=== PATIENT | male | born 1945 | race Caucasian/White ===

== ENCOUNTER 2017-12-19 10:19 | Emergency (ER) | payer MEDICARE, OTHER, SELFPAY ==
[2017-12-19 10:28] VITALS: BP 147/61; PULSE 65; RESP 20; TEMP 36.3; O2SAT 100
--- NOTE | 2017-12-19 10:47 | DI.RAD.S_ITS ---
PROCEDURE: XR CHEST 1V INDICATIONS: chest pain TECHNIQUE: One view of the chest was acquired. COMPARISON: [facility], CR, XR CHEST 2VW, 12/30/2015, 7:48. FINDINGS: Surgical changes and devices: Left-sided cardiac pacer/defibrillator is seen. Lungs and pleura: The aeration of the lungs is similar to the prior exam. Interstitial prominence is present within the perihilar regions. Mediastinum: Mediastinal contours appear normal. The heart is mildly enlarged. There is aortic atherosclerosis. Bones and chest wall: No suspicious bony lesions. Overlying soft tissues appear unremarkable. IMPRESSION: 1. Mild pulmonary edema versus perihilar interstitial prominence. No convincing pneumonia. 2. Mild cardiomegaly. Dictated by: Angel Luis De La Garza M.D. on 12/19/2017 at 10:05 Approved by: Angel Luis De La Garza M.D. on 12/19/2017 at 10:06
[2017-12-19 11:00] LABS: Add Manual Diff / Slide Review NO; Basophils Percent Auto 0.7 % (0-2); Eosinophils Percent Auto 1.4 % (2-4); Hematocrit 41.8 % (41-53); Hemoglobin 14.3 g/dL (13.5-17.5); INR 2.8 (0.9-1.3); Lymphocytes Percent Auto 21.9 % (25-40); Mean Corpuscular HGB Conc 34.2 % (30-36); Mean Corpuscular Hemoglobin 31.5 PG (26-34); Mean Corpuscular Volume 92.1 fL (80-100); Monocytes Percent Auto 12.3 % (3-14); Neutrophils Absolute Auto 3700 /uL (3000-5900); Neutrophils Percent Auto 63.7 % (50-75); Platelet Count 228 X10^3/uL (150-400); Red Blood Cell Count 4.54 X10^6/uL (4.5-5.9); White Blood Cell Count 5.8 X10^3/uL (4.5-11.0)
[2017-12-19 11:02] LABS: PTT Partial Thromboplastin Tim 51 SECONDS (26.4-36.2)
[2017-12-19 11:04] LABS: Alanine Aminotransferase 51 IU/L (21-72); Albumin 4.4 g/dL (3.5-5.0); Albumin Globulin Ratio 1.3 (1.0-2.8); Alkaline Phosphatase 71 U/L (38-126); Aspartate Aminotransferase 26 IU/L (17-59); Bilirubin Total 1.2 mg/dL (0.2-1.3); Blood Urea Nitrogen 20 mg/dL (9-20); Calcium 9.6 mg/dL (8.4-10.2); Carbon Dioxide 31 mmol/L (22-32); Chloride 99 mmol/L (98-107); Creatine Kinase 64 U/L (55-170); Estimated Glomerular Filt Rate > 60.0 mL/min (>60); Globulin 3.3 g/dL (1.7-4.1); Glucose 112 mg/dL (80-110); HEMOLYSIS < 15 (0-50); Lipase 158 U/L (23-300); Potassium 4.2 mmol/L (3.4-5.1); Sodium 141 mmol/L (137-145); Total Protein 7.7 g/dL (6.3-8.2)
[2017-12-19 11:16] LABS: B Type Natriuretic Peptide 49.5 (<100); Troponin I < 0.012 ng/mL (0.01-0.034)
[2017-12-19 11:33] VITALS: BP 139/56; PULSE 52; RESP 18; O2SAT 99
--- NOTE | 2017-12-19 11:33 | ED.CHESTPAIN ---
HPI - Chest Pain General Chief Complaint: Chest Pain Stated Complaint: 'FUNNY FEELING IN CHEST' Time Seen by Provider: 12/19/17 10:28 Source: patient Mode of arrival: ambulatory Limitations: no limitations History of Present Illness HPI narrative: Patient is a 72-year-old male who presents with a right-sided chest pain. He said he has had intermittent chest pain off and on since yesterday. He has a history of coronary artery disease and atrial fibrillation. He has episodes multiple times in our they last his couple of minutes. It happens with exertion and at rest. Currently does not feel anything. He does not have any short of breath. No fevers no cough no pain with inspiration MD complaint: chest pain Onset (ago): day(s) (1) Related Data Home Medications Medication Instructions Recorded Confirmed isosorbide dinitrate 30 mg PO DAILY #0 09/15/11 12/19/17 spironolactone 25 mg PO QDAY #0 09/15/11 12/19/17 losartan 25 mg PO QDAY #0 06/02/12 12/19/17 atorvastatin [Lipitor] 40 mg PO QPM #0 07/23/17 12/19/17 finasteride 5 mg PO QPM 12/19/17 12/19/17 metoprolol succinate 1 tab PO DAILY 12/19/17 12/19/17 sotalol 1 tab PO BID 12/19/17 12/19/17 Previous Rx's Medication Instructions Recorded warfarin [Coumadin] 2.5 mg PO SEE INSTRUCTIONS #90 tab 07/23/17 hydrocodone 5 mg-acetaminophen 325 1 - 2 tab PO Q6HP PRN #30 tab 11/10/17 mg tablet Allergies Allergy/AdvReac Type Severity Reaction Status Date / Time adhesive Allergy Mild BLISTERS Unverified 10/01/17 12:54 AND RASH lisinopril AdvReac Mild COUGH Unverified 10/01/17 12:54 Review of Systems Review of Systems All systems reviewed & are unremarkable except as noted in HPI and below Constitutional Denies chills, Denies fever(s), Denies lethargy and Denies weakness Cardiovascular Reports system reviewed and no additional complaints, except as docu, Denies dyspnea and Denies dyspnea on exertion Respiratory Denies cough, Denies dyspnea, Denies dyspnea on exertion and Denies wheezing Gastrointestinal Gastrointestinal: Denies abdominal pain, Denies change in bowel habits, Denies diarrhea, Denies nausea and Denies vomiting Musculoskeletal Denies back pain, Denies muscle weakness, Denies numbness and Denies tingling Neurologic Denies numbness, Denies tingling and Denies weakness Allergic/Immunologic Denies wheezing PFSH Medical History Atrial fibrillation (Acute) Coronary artery disease (Acute) Hyperlipidemia (Acute) Hypertension (Acute) Family History Brother Age: 74 Heart disease Child Liver failure Father Heart disease Grandfather Heart disease Exam Initial Vital Signs Initial Vital Signs: Vital Signs Temperature 97.3 F L 12/19/17 10:28 Pulse Rate 65 12/19/17 10:28 Respiratory Rate 20 12/19/17 10:28 Blood Pressure 147/61 H 12/19/17 10:28 Pulse Oximetry 100 12/19/17 10:28 Const General: cooperative and healthy appearing HENOR Head: normocephalic and atraumatic Chest Chest: normal inspection of the chest Resp Effort & Inspection: normal respiratory effort, able to speak in complete sentences, no respiratory distress and no use of accessory muscles Auscultation: clear to auscultation bilaterally, no rales, no rhonchi and no wheezes Cardio Rate: regular rate Rhythm: regular rhythm Heart Sounds: no click, no gallops, no murmurs and no rubs Pulses: normal peripheral pulses Skin General: no rashes or lesions noted, No jaundice and No petechiae Neuro General: alert, awake and oriented x3 Cranial Nerves: CN's II-XI intact bilaterally Course Orders Ordered: ED Orders 12/19/17 10:34 EKG-12 Lead Stat 12/19/17 10:47 XR chest 1V Stat EKG-12 Lead Stat 12/19/17 10:49 B Type Natriuretic Peptide Stat Complete Blood Count AUTO DIFF Stat Comprehensive Metabolic Panel Stat Lipase Stat Partial Thromboplastin Time Stat Prothrombin Time INR Stat Troponin with CK Cardiac Panel Stat Discontinued Medications Sodium Chloride (Normal Saline 0.9%) 1,000 mls @ 150 mls/hr IV CONT JULISA Vital Signs - 8 hr 12/19/17 10:28 12/19/17 11:33 Temperature 97.3 F L Pulse Rate 65 52 L Respiratory Rate 20 18 Blood Pressure 147/61 H Blood Pressure [Left Arm] 139/56 H Pulse Oximetry 100 99 MDM - Chest Pain Differential Diagnosis Likely atypical chest pain (Most likely), costochondritis, chest pain and other (Pericarditis, pleurisy, aortic dissection) Medical Records Data Attestation: I reviewed the patient's medical records. Lab Data Attestation: I reviewed the patient's lab results. Result diagrams: 12/19/17 10:49 12/19/17 10:49 Lab Results 12/19/17 12/19/17 12/19/17 Range/Units 10:49 10:49 10:49 WBC 5.8 (4.5-11.0) X10^3/uL RBC 4.54 (4.5-5.9) X10^6/uL Hgb 14.3 (13.5-17.5) g/dL Hct 41.8 (41-53) % MCV 92.1 (80-100) fL MCH 31.5 (26-34) PG MCHC 34.2 (30-36) % RDW 14.0 (11.6-14.8) % Plt Count 228 (150-400) X10^3/uL Neut % (Auto) 63.7 (50-75) % Lymph % (Auto) 21.9 L (25-40) % [place] % (Auto) 12.3 (3-14) % Eos % (Auto) 1.4 L (2-4) % Baso % (Auto) 0.7 (0-2) % Neut # (Auto) 3700 (7493-3535) /uL PT 30.0 H (10.1-12.7) SECONDS INR 2.8 H (0.9-1.3) APTT 51 H (26.4-36.2) SECONDS Sodium 141 (137-145) mmol/L Potassium 4.2 (3.4-5.1) mmol/L Chloride 99 (98-107) mmol/L Carbon Dioxide 31 (22-32) mmol/L BUN 20 (9-20) mg/dL Creatinine 1.00 (0.66-1.25) mg/dL Estimated GFR > 60.0 (>60) mL/min BUN/Creatinine Ratio 20.0 (6-22) Glucose 112 H (80-110) mg/dL Calcium 9.6 (8.4-10.2) mg/dL Total Bilirubin 1.2 (0.2-1.3) mg/dL AST 26 (17-59) IU/L ALT 51 (21-72) IU/L Alkaline Phosphatase 71 (38-126) U/L Total Creatine Kinase 64 (55-170) U/L Troponin I < 0.012 (0.01-0.034) ng/mL B-Natriuretic Peptide 49.5 (<100) Total Protein 7.7 (6.3-8.2) g/dL Albumin 4.4 (3.5-5.0) g/dL Globulin 3.3 (1.7-4.1) g/dL Albumin/Globulin Ratio 1.3 (1.0-2.8) Lipase 158 (23-300) U/L ECG Data Attestation: I personally reviewed and interpreted this ECG as follows: Prior ECG tracings: available for review Interpretation: EKG 1.: Sinus rhythm right bundle-branch block rate [address] changes similar to previous EKG EKG 2.: Sinus rhythm Bried 50 similar to previous do not agree with computer of acute [place] MDM Narrative Medical decision making narrative: The patient has not had any recurrence of chest pain. Intermittent chest pain lasting under were 1 min several times in our back consistent with cardiac pain. We did discuss that he does have risk factors in his should follow up with his channel lip wetter for further evaluation we discussed risk and warning signs and when to return to the ED. Both he and his understand. I do not believe that he has a PE his Coumadin and INR is therapeutic. Nor is he a hypoxic or complaining short of breath Discharge Plan Departure Patient Disposition: Home, Self-Care Clinical Impression: Atypical chest pain Discharge Date/Time: 12/19/17 12:21 Interventions: ED Discharge Assessment Last Done: 12/19/17 12:21 Instructions: DI for Atypical Chest Pain Activity Restrictions/Additional Instructions: *You have been diagnosed with atypical chest pain *What to do: Blood work, chest x-ray and EKG look at your baseline. You may still require further workup with your channel lip wetter *Continue to take medications as directed *Follow up with your primary care provider in 2-3 days *Return to ER if you should have increase or change in pain or any new, worsening or concerning symptoms Prescriptions: No Action spironolactone 25 MG tablet 25 mg PO QDAY Qty: 0 RF: 0 isosorbide dinitrate 30 MG tablet 30 mg PO DAILY Qty: 0 RF: 0 losartan 25 MG tablet 25 mg PO QDAY Qty: 0 RF: 0 atorvastatin [Lipitor] 40 MG tablet 40 mg PO QPM Qty: 0 RF: 0 warfarin [Coumadin] 2.5 MG tablet 2.5 mg PO SEE INSTRUCTIONS Qty: 90 RF: 10 hydrocodone-acetaminophen [[place]] 5-325 mg tablet 1 - 2 tab PO Q6HP PRN (Reason: pain) Qty: 30 RF: 0 metoprolol succinate 50 mg tablet extended release 24 hr 1 tab PO DAILY RF: 0 sotalol 80 mg tablet 1 tab PO BID RF: 0 finasteride 5 MG tablet 5 mg PO QPM RF: 0 Referrals: Raúl Carrion MD [Primary Care Provider] - Sera Cheng MD [Physician] -
--- NOTE | 2017-12-19 11:36 | ED_ITS ---
HPI - Chest Pain General Chief Complaint: Chest Pain Stated Complaint: 'FUNNY FEELING IN CHEST' Time Seen by Provider: 12/19/17 10:28 Source: patient Mode of arrival: ambulatory Limitations: no limitations History of Present Illness HPI narrative: Patient is a 72-year-old male who presents with a right-sided chest pain. He said he has had intermittent chest pain off and on since yesterday. He has a history of coronary artery disease and atrial fibrillation. He has episodes multiple times in our they last his couple of minutes. It happens with exertion and at rest. Currently does not feel anything. He does not have any short of breath. No fevers no cough no pain with inspiration MD complaint: chest pain Onset (ago): day(s) (1) Related Data Home Medications Medication Instructions Recorded Confirmed isosorbide dinitrate 30 mg PO DAILY #0 09/15/11 12/19/17 spironolactone 25 mg PO QDAY #0 09/15/11 12/19/17 losartan 25 mg PO QDAY #0 06/02/12 12/19/17 atorvastatin [Lipitor] 40 mg PO QPM #0 07/23/17 12/19/17 finasteride 5 mg PO QPM 12/19/17 12/19/17 metoprolol succinate 1 tab PO DAILY 12/19/17 12/19/17 sotalol 1 tab PO BID 12/19/17 12/19/17 Previous Rx's Medication Instructions Recorded warfarin [Coumadin] 2.5 mg PO SEE INSTRUCTIONS #90 tab 07/23/17 hydrocodone 5 mg-acetaminophen 325 1 - 2 tab PO Q6HP PRN #30 tab 11/10/17 mg tablet Allergies Allergy/AdvReac Type Severity Reaction Status Date / Time adhesive Allergy Mild BLISTERS Unverified 10/01/17 12:54 AND RASH lisinopril AdvReac Mild COUGH Unverified 10/01/17 12:54 Review of Systems Review of Systems All systems reviewed & are unremarkable except as noted in HPI and below Constitutional Denies chills, Denies fever(s), Denies lethargy and Denies weakness Cardiovascular Reports system reviewed and no additional complaints, except as docu, Denies dyspnea and Denies dyspnea on exertion Respiratory Denies cough, Denies dyspnea, Denies dyspnea on exertion and Denies wheezing Gastrointestinal Gastrointestinal: Denies abdominal pain, Denies change in bowel habits, Denies diarrhea, Denies nausea and Denies vomiting Musculoskeletal Denies back pain, Denies muscle weakness, Denies numbness and Denies tingling Neurologic Denies numbness, Denies tingling and Denies weakness Allergic/Immunologic Denies wheezing PFSH Medical History Atrial fibrillation (Acute) Coronary artery disease (Acute) Hyperlipidemia (Acute) Hypertension (Acute) Family History Brother Age: 74 Heart disease Child Liver failure Father Heart disease Grandfather Heart disease Exam Initial Vital Signs Initial Vital Signs: Vital Signs Temperature 97.3 F L 12/19/17 10:28 Pulse Rate 65 12/19/17 10:28 Respiratory Rate 20 12/19/17 10:28 Blood Pressure 147/61 H 12/19/17 10:28 Pulse Oximetry 100 12/19/17 10:28 Const General: cooperative and healthy appearing HENTX Head: normocephalic and atraumatic Chest Chest: normal inspection of the chest Resp Effort & Inspection: normal respiratory effort, able to speak in complete sentences, no respiratory distress and no use of accessory muscles Auscultation: clear to auscultation bilaterally, no rales, no rhonchi and no wheezes Cardio Rate: regular rate Rhythm: regular rhythm Heart Sounds: no click, no gallops, no murmurs and no rubs Pulses: normal peripheral pulses Skin General: no rashes or lesions noted, No jaundice and No petechiae Neuro General: alert, awake and oriented x3 Cranial Nerves: CN's II-XI intact bilaterally Course Orders Ordered: ED Orders 12/19/17 10:34 EKG-12 Lead Stat 12/19/17 10:47 XR chest 1V Stat EKG-12 Lead Stat 12/19/17 10:49 B Type Natriuretic Peptide Stat Complete Blood Count AUTO DIFF Stat Comprehensive Metabolic Panel Stat Lipase Stat Partial Thromboplastin Time Stat Prothrombin Time INR Stat Troponin with CK Cardiac Panel Stat Discontinued Medications Sodium Chloride (Normal Saline 0.9%) 1,000 mls @ 150 mls/hr IV CONT JULISA Vital Signs - 8 hr 12/19/17 10:28 12/19/17 11:33 Temperature 97.3 F L Pulse Rate 65 52 L Respiratory Rate 20 18 Blood Pressure 147/61 H Blood Pressure [Left Arm] 139/56 H Pulse Oximetry 100 99 MDM - Chest Pain Differential Diagnosis Likely atypical chest pain (Most likely), costochondritis, chest pain and other (Pericarditis, pleurisy, aortic dissection) Medical Records Data Attestation: I reviewed the patient's medical records. Lab Data Attestation: I reviewed the patient's lab results. Result diagrams: 12/19/17 10:49 12/19/17 10:49 Lab Results 12/19/17 12/19/17 12/19/17 Range/Units 10:49 10:49 10:49 WBC 5.8 (4.5-11.0) X10^3/uL RBC 4.54 (4.5-5.9) X10^6/uL Hgb 14.3 (13.5-17.5) g/dL Hct 41.8 (41-53) % MCV 92.1 (80-100) fL MCH 31.5 (26-34) PG MCHC 34.2 (30-36) % RDW 14.0 (11.6-14.8) % Plt Count 228 (150-400) X10^3/uL Neut % (Auto) 63.7 (50-75) % Lymph % (Auto) 21.9 L (25-40) % [place] % (Auto) 12.3 (3-14) % Eos % (Auto) 1.4 L (2-4) % Baso % (Auto) 0.7 (0-2) % Neut # (Auto) 3700 (8606-2205) /uL PT 30.0 H (10.1-12.7) SECONDS INR 2.8 H (0.9-1.3) APTT 51 H (26.4-36.2) SECONDS Sodium 141 (137-145) mmol/L Potassium 4.2 (3.4-5.1) mmol/L Chloride 99 (98-107) mmol/L Carbon Dioxide 31 (22-32) mmol/L BUN 20 (9-20) mg/dL Creatinine 1.00 (0.66-1.25) mg/dL Estimated GFR > 60.0 (>60) mL/min BUN/Creatinine Ratio 20.0 (6-22) Glucose 112 H (80-110) mg/dL Calcium 9.6 (8.4-10.2) mg/dL Total Bilirubin 1.2 (0.2-1.3) mg/dL AST 26 (17-59) IU/L ALT 51 (21-72) IU/L Alkaline Phosphatase 71 (38-126) U/L Total Creatine Kinase 64 (55-170) U/L Troponin I < 0.012 (0.01-0.034) ng/mL B-Natriuretic Peptide 49.5 (<100) Total Protein 7.7 (6.3-8.2) g/dL Albumin 4.4 (3.5-5.0) g/dL Globulin 3.3 (1.7-4.1) g/dL Albumin/Globulin Ratio 1.3 (1.0-2.8) Lipase 158 (23-300) U/L ECG Data Attestation: I personally reviewed and interpreted this ECG as follows: Prior ECG tracings: available for review Interpretation: EKG 1.: Sinus rhythm right bundle-branch block rate [address] changes similar to previous EKG EKG 2.: Sinus rhythm Bried 50 similar to previous do not agree with computer of acute [place] MDM Narrative Medical decision making narrative: The patient has not had any recurrence of chest pain. Intermittent chest pain lasting under were 1 min several times in our back consistent with cardiac pain. We did discuss that he does have risk factors in his should follow up with his lay midwife for further evaluation we discussed risk and warning signs and when to return to the ED. Both he and his understand. I do not believe that he has a PE his Coumadin and INR is therapeutic. Nor is he a hypoxic or complaining short of breath Discharge Plan Departure Patient Disposition: Home, Self-Care Clinical Impression: Atypical chest pain Discharge Date/Time: 12/19/17 12:21 Interventions: ED Discharge Assessment Last Done: 12/19/17 12:21 Instructions: DI for Atypical Chest Pain Activity Restrictions/Additional Instructions: *You have been diagnosed with atypical chest pain *What to do: Blood work, chest x-ray and EKG look at your baseline. You may still require further workup with your lay midwife *Continue to take medications as directed *Follow up with your primary care provider in 2-3 days *Return to ER if you should have increase or change in pain or any new, worsening or concerning symptoms Prescriptions: No Action spironolactone 25 MG tablet 25 mg PO QDAY Qty: 0 RF: 0 isosorbide dinitrate 30 MG tablet 30 mg PO DAILY Qty: 0 RF: 0 losartan 25 MG tablet 25 mg PO QDAY Qty: 0 RF: 0 atorvastatin [Lipitor] 40 MG tablet 40 mg PO QPM Qty: 0 RF: 0 warfarin [Coumadin] 2.5 MG tablet 2.5 mg PO SEE INSTRUCTIONS Qty: 90 RF: 10 hydrocodone-acetaminophen [[place]] 5-325 mg tablet 1 - 2 tab PO Q6HP PRN (Reason: pain) Qty: 30 RF: 0 metoprolol succinate 50 mg tablet extended release 24 hr 1 tab PO DAILY RF: 0 sotalol 80 mg tablet 1 tab PO BID RF: 0 finasteride 5 MG tablet 5 mg PO QPM RF: 0 Referrals: Raúl Carrion MD [Primary Care Provider] - Sera Cheng MD [Physician] -
== END 2017-12-19 12:21 | disposition home or self-care (01) ==
PROVIDERS: Emergency Provider Emergency Medicine; Family Provider Family Medicine; PCP Family Medicine
DX: R07.89 Other chest pain (principal)
CPT/HCPCS: 71045; 80053; 81003; 82550; 82553; 83690; 83880; 84484; 85025; 85610; 85730; 93005; 99283; 99285

== ENCOUNTER → 2018-09-18 12:30 | Outpatient (CLI) | payer OTHER, SELFPAY ==
[2018-09-18 13:26] LABS: Add Manual Diff / Slide Review NO; Basophils Absolute Auto 0 /uL (0-100); Basophils Percent Auto 0.5 % (0-2); Eosinophils Absolute Auto 100 /uL (0-450); Eosinophils Percent Auto 1.7 % (2-4); Hematocrit 40.3 % (41-53); Hemoglobin 13.5 g/dL (13.5-17.5); Lymphocytes Absolute Auto 1200 /uL (1100-4500); Lymphocytes Percent Auto 20.5 % (25-40); Mean Corpuscular HGB Conc 33.4 % (30-36); Mean Corpuscular Hemoglobin 30.5 PG (26-34); Mean Corpuscular Volume 91.2 fL (80-100); Monocytes Absolute Auto 600 /uL (0-900); Monocytes Percent Auto 9.5 % (3-14); Neutrophils Absolute Auto 3900 /uL (1500-7000); Neutrophils Percent Auto 67.8 % (50-75); Platelet Count 227 X10^3/uL (150-400); Red Blood Cell Count 4.42 X10^6/uL (4.5-5.9); Red Cell Distribution Width 14.5 % (11.6-14.8); White Blood Cell Count 5.8 X10^3/uL (4.5-11.0)
[2018-09-18 13:31] LABS: Alanine Aminotransferase 40 IU/L (21-72); Albumin 4.2 g/dL (3.5-5.0); Albumin Globulin Ratio 1.4 (1.0-2.8); Alkaline Phosphatase 70 U/L (38-126); Aspartate Aminotransferase 30 IU/L (17-59); Bilirubin Total 1.1 mg/dL (0.2-1.3); Blood Urea Nitrogen 20 mg/dL (9-20); Calcium 9.1 mg/dL (8.4-10.2); Carbon Dioxide 28 mmol/L (22-32); Chloride 103 mmol/L (98-107); Cholesterol 109 mg/dL (140-199); Estimated Glomerular Filt Rate > 60.0 mL/min (>60); Glucose 112 mg/dL (80-110); HDL Cholesterol 36 mg/dL (40-60); HEMOLYSIS < 15 (0-50); LDL Cholesterol Calculated 49 mg/dL (<100); Potassium 4.2 mmol/L (3.4-5.1); Sodium 139 mmol/L (137-145); Total Protein 7.2 g/dL (6.3-8.2); Triglycerides 119 mg/dL (35-150)
[2018-09-18 13:35] LABS: Hemoglobin A1C% w Est Avg Glu 5.7 % (4.0-6.0)
[2018-09-18 14:01] LABS: Prostate Specific Antigen Scrn 0.218 ng/mL (0.1-4.0)
[2018-09-18 15:45] LABS: Creatinine Urine Random 106.7 mg/dL
[2018-09-18 15:52] LABS: Microalbumi Creatinin Ratio Ur 5.6 ug/mg CR (<30); Microalbumin Urine Random < 0.6 mg/dL (0-1.6)
[2018-09-18 16:16] LABS: Thyroid Stimulating Hormone 2.44 uIU/mL (0.47-4.68)
== END ==
PROVIDERS: PCP Family Medicine; Visit Provider Family Medicine
DX: E78.5 Hyperlipidemia, unspecified (principal); I10 Essential (primary) hypertension; R73.9 Hyperglycemia, unspecified; R97.20 Elevated prostate specific antigen [PSA]; Z12.5 Encounter for screening for malignant neoplasm of prostate
CPT/HCPCS: 36415; 80053; 80061; 82043; 82570; 83036; 84443; 85025; G0103

== ENCOUNTER → 2018-09-24 11:17 | Outpatient (CLI) | payer OTHER, SELFPAY ==
--- NOTE | 2018-09-24 11:19 | DI.RAD.S_ITS ---
PROCEDURE: XR LUMBAR SPINE 2-3V INDICATIONS: pain TECHNIQUE: 3 views of the lumbar spine were acquired. COMPARISON: [facility], , L-SPINE 2-3 VIEWS, 11/14/2015, 11:51. FINDINGS: Bones: 5 [id number] vertebrae are present. There is normal bony alignment. No vertebral body compression fractures. No suspicious bony lesions. There is degenerative disc disease, moderate at L3-L4 and L4-L5, and mild at L1-L2, L2-L3 and L5-S1. There is severe facet arthropathy at L4-L5 and L5-S1. Overall, there is no significant change from 11/14/2015. Soft tissues: Overlying bowel gas pattern is normal. Aortic calcifications consistent with atherosclerosis. IMPRESSION: 1. Degenerative disc and facet disease as described. Dictated by: Zuleima Sierra M.D. on 09/24/2018 at 16:50 Approved by: Zuleima Sierra M.D. on 09/24/2018 at 16:52
== END ==
PROVIDERS: PCP Family Medicine; Visit Provider Family Medicine
DX: M54.5 Low back pain (principal); M51.16 Intervertebral disc disorders with radiculopathy, lumbar region; M51.17 Intervertebral disc disorders with radiculopathy, lumbosacral region; M47.26 Other spondylosis with radiculopathy, lumbar region; M47.27 Other spondylosis with radiculopathy, lumbosacral region; G89.29 Other chronic pain
CPT/HCPCS: 72100

== ENCOUNTER → 2018-09-25 07:44 | Outpatient (CLI) | payer OTHER, SELFPAY ==
--- NOTE | 2018-09-25 07:45 | DI.US.S_ITS ---
PROCEDURE: US CAROTID DOPPLER BI INDICATIONS: CAROTID DIS TECHNIQUE: Color and pulse Doppler interrogation was performed of both carotid systems, with image documentation and velocity measurements. COMPARISON: None. FINDINGS: Stenosis calculations are based on SRU (Society of Radi[employer] in Ultras[employer]) criteria. Right side: Brachial blood pressure: 121/66 mm Hg. Common carotid artery peak systolic velocity: 99 cm/sec. Internal carotid artery peak systolic velocity: 116 cm/sec. Internal carotid artery end diastolic velocity: 21 cm/sec. External carotid artery peak systolic velocity: 96 cm/sec. ICA/CCA peak systolic ratio: 1.17. Ritchie scale imaging description: Calcified plaque Percent internal carotid artery stenosis: Less than 50%. Vertebral artery: Flow direction is antegrade. Left side: Brachial blood pressure: 138/68 mm Hg. Common carotid artery peak systolic velocity: 108 cm/sec. Internal carotid artery peak systolic velocity: 133 cm/sec. Internal carotid artery end diastolic velocity: 28 cm/sec. External carotid artery peak systolic velocity: 165 cm/sec. ICA/CCA peak systolic ratio: 1.23. Ritchie scale imaging description: Calcified plaque Percent internal carotid artery stenosis: Less than 50-69% Vertebral artery: Flow not identified. IMPRESSION: 1. Less than 50% stenosis of the right internal carotid artery. 2. 50-69% stenosis of the left internal carotid artery. 3. Left vertebral artery flow not identified. Dictated by: Jada Burris MD, PhD on 09/25/2018 at 10:18 Approved by: Jada Burris MD, PhD on 09/25/2018 at 10:20
--- NOTE | 2018-09-25 07:45 | DI.US.S_ITS ---
PROCEDURE: US ABD AORTA ANEURYSM SCREEN INDICATIONS: ascvd TECHNIQUE: Real time scanning was performed of the aorta and iliac arteries, with image documentation. COMPARISON: None. FINDINGS: Aorta: Proximal aortic diameter measures 2.1 cm. Mid-aorta measures 1.9 cm. Distal aortic diameter is 1.7 cm. Iliac arteries: Right common iliac artery measures 1.0 cm. Left common iliac artery measures 1.1 cm. IMPRESSION: No abdominal aortic aneurysm. Dictated by: Jada Burris MD, PhD on 09/25/2018 at 10:21 Approved by: Jada Burris MD, PhD on 09/25/2018 at 10:21
== END ==
PROVIDERS: Family Provider Internal Medicine Cardiovascular Disease; PCP Family Medicine; Visit Provider Family Medicine
DX: I65.23 Occlusion and stenosis of bilateral carotid arteries (principal); I25.10 Atherosclerotic heart disease of native coronary artery without angina pectoris; Z98.890 Other specified postprocedural states
CPT/HCPCS: 76706; 93880

== ENCOUNTER → 2018-12-30 15:45 | Outpatient (CLI) | payer OTHER, SELFPAY ==
--- NOTE | 2018-12-30 | DI.ECHO.S_ITS ---
[facility]---------+ [facility] +---------+ : : [address] : : : : [id number] : : : : Phone: [phone]+ Echocardiogram Report + + :Name: JENIFFER MCGEE Study Date: 12/30/2018 Height: 65 in : :[facility] Exam Location: IS Weight: 229 lb : : Gender: Male BSA: 2.1 m2 : :: 1945 Age: 73 yrs BP: 140/80 mmHg: :Reason For Study: History of benign neoplasm : :Ordering Physician: Sera : :Ceciliwlaura Performed By: Alana Page : + + Interpretation Summary Left ventricular size is at the upper limits of normal. The ejection fraction is estimated to be 35-40%. There has been no significant change in LVEF since the previous exam.Distal third of the LV is akinetic including LV apex as well as akinetic mid to distal anterior septum without any significant change from the previous study. No obvious LV apical clot seen. No RV/RA mass appreciated. There is a pacemaker lead in the right ventricle. There is mild to moderate mitral regurgitation. Compared to the prior echo study, there has been an increase in the severity of mitral regurgitation. There is mild to moderate tricuspid regurgitation.Pulmonary artery pressures cannot be estimated because of the lack of a measurable TR jet velocity. The IVC is of normal diameter and collapses less than 50% with a sniff. This suggests a right atrial pressure of 8 mm Hg. Mild atherosclerotic plaque(s) in the aortic arch. Procedure: A two-dimensional transthoracic echocardiogram with color flow and Doppler was performed. Comparison is made with the echocardiogram of 01/04/2016. The study quality was technically difficult. The patient has a paced rhythm. Left Ventricle: Left ventricular size is at the upper limits of normal. There has been no significant change since the previous exam. The ejection fraction is estimated to be 35-40%. Compared to the prior exam, the left ventricular wall motion has not changed. Distal third of the LV is akinetic including LV apex as well as akinetic mid to distal anterior septum without any significant change from the previous study. No obvious LV apical clot seen. Diastolic function could not be accurately assessed due to paced rhythm. Right Ventricle: There is a pacemaker lead in the right ventricle. No RV/RA mass appreciated. Atria: The left atrium is mildly dilated. The right atrium grossly appears normal in size. There is no Doppler evidence for an interatrial shunt. Mitral Valve: The mitral valve leaflets appear mildly thickened, but open well. There is mild mitral annular calcification. There is mild to moderate mitral regurgitation. Compared to the prior echo study, there has been an increase in the severity of mitral regurgitation. Aortic Valve: The aortic valve is trileaflet. The aortic valve opens well. There is mild aortic valve sclerosis. There is no aortic valve stenosis. There is trace aortic regurgitation. Tricuspid Valve: The tricuspid valve is not well visualized, but is grossly normal. There is mild to moderate tricuspid regurgitation. Pulmonary artery pressures cannot be estimated because of the lack of a measurable TR jet velocity. Pulmonic Valve: The pulmonic valve is not well visualized. There is trace pulmonic regurgitation. Great Vessels: The aortic root is normal size. The ascending aorta could not be visualized. The aortic arch is normal in size. Mild atherosclerotic plaque (s) in the aortic arch. The pulmonary is not well visualized. The IVC is of normal diameter and collapses less than 50% with a sniff. This suggests a right atrial pressure of 8 mm Hg. Pericardium/ Pleura There is no pericardial effusion. There is no pleural effusion. MMode/2D Measurements & Calculations LVIDd: 5.7 cm Ao root diam: 3.3 cm LVIDs: 4.4 cm Ao Arch Diam (Prox Trans): 2.9 cm FS: 23.3 % EPSS: 1.3 cm IVSd: 0.77 cm LVPWd: 0.84 cm LV craias. diameter/BSA (cm/m^2): 2.7 LV sys. diameter/BSA (cm/m^2): 2.1 LA A2 area: 14.9 cm2 RA long axis: 6.1 cm LA A4 area: 23.9 cm2 RA area: 19.7 cm2 LA length (vol): 6.2 cm RA vol: 54.0 ml LA vol: 48.8 ml RA : 25.8 ml/m2 LA vol index: 23.3 ml/m2 IVC diam: 1.8 cm RVD1 (basal): 4.8 cm Doppler Measurements & Calculations Ao V2 max: 111.9 cm/sec LVOT Max Juan: 42.4 cm/sec Ao V2 mean: 77.5 cm/sec LV V1 max P.72 mmHg Ao max P.0 mmHg LV V1 VTI: 9.4 cm Ao mean P.6 mmHg sev ratio: 0.40 Ao V2 VTI: 23.6 cm MV E max juan: 71.1 cm/sec PA V2 max: 69.7 cm/sec MV A max juan: 98.2 cm/sec PA V2 mean: 46.9 cm/sec MV E/A: 0.72 PA mean P.99 mmHg Med Peak E' Juan: 3.2 cm/sec PA Accel Time: 0.09 sec E/E' med: 22.2 Lat Peak E' Juan: 3.9 cm/sec E/E' lat: 18.1 E/e' average: 20.2 MV dec time: 0.25 sec Reading Physician:JOSE CARLOS
== END ==
PROVIDERS: PCP Family Medicine; Visit Provider Internal Medicine Cardiovascular Disease
DX: I08.3 Combined rheumatic disorders of mitral, aortic and tricuspid valves (principal); I70.0 Atherosclerosis of aorta; Z86.018 Personal history of other benign neoplasm; Z95.0 Presence of cardiac pacemaker
CPT/HCPCS: 93306

== ENCOUNTER → 2019-08-14 12:30 | Outpatient (CLI) | payer OTHER, SELFPAY ==
[2019-08-14 13:27] LABS: BUN Creatinine Ratio 21.7 (6-22); Blood Urea Nitrogen 26 mg/dL (9-20); Calcium 10.1 mg/dL (8.4-10.2); Carbon Dioxide 28 mmol/L (22-32); Chloride 102 mmol/L (98-107); Estimated Glomerular Filt Rate 58.9 mL/min (>60); Glucose 98 mg/dL (80-110); HEMOLYSIS < 15 (0-50); Potassium 4.6 mmol/L (3.4-5.1); Sodium 140 mmol/L (137-145)
== END ==
PROVIDERS: PCP Family Medicine; Referring Provider Internal Medicine Cardiovascular Disease; Visit Provider Internal Medicine Cardiovascular Disease
DX: I25.5 Ischemic cardiomyopathy (principal)
CPT/HCPCS: 36415; 80048

== ENCOUNTER → 2020-06-02 11:31 | Outpatient (CLI) | payer OTHER, SELFPAY ==
[2020-06-02 11:57] LABS: Add Manual Diff / Slide Review NO; Basophils Absolute Auto 0 /uL (0-100); Basophils Percent Auto 0.6 % (0-2); Eosinophils Absolute Auto 200 /uL (0-450); Eosinophils Percent Auto 2.5 % (2-4); Hematocrit 42.6 % (41-53); Hemoglobin 14.2 g/dL (13.5-17.5); Lymphocytes Absolute Auto 1400 /uL (1100-4500); Lymphocytes Percent Auto 17.5 % (25-40); Mean Corpuscular HGB Conc 33.4 % (30-36); Mean Corpuscular Hemoglobin 30.8 PG (26-34); Monocytes Absolute Auto 800 /uL (0-900); Monocytes Percent Auto 9.6 % (3-14); Neutrophils Absolute Auto 5600 /uL (1500-7000); Neutrophils Percent Auto 69.8 % (50-75); Platelet Count 259 X10^3/uL (150-400); Red Blood Cell Count 4.63 X10^6/uL (4.5-5.9); Red Cell Distribution Width 14.5 % (11.6-14.8); White Blood Cell Count 8.1 X10^3/uL (4.5-11.0)
[2020-06-02 12:22] LABS: Alanine Aminotransferase 38 IU/L (<50); Albumin 4.2 g/dL (3.5-5.0); Albumin Globulin Ratio 1.3 (1.0-2.8); Alkaline Phosphatase 94 U/L (38-126); Aspartate Aminotransferase 29 IU/L (17-59); BUN Creatinine Ratio 17.9 (6-22); Bilirubin Total 1.1 mg/dL (0.2-1.3); Blood Urea Nitrogen 21 mg/dL (9-20); Calcium 9.5 mg/dL (8.4-10.2); Carbon Dioxide 33 mmol/L (22-32); Chloride 100 mmol/L (98-107); Cholesterol 134 mg/dL (140-199); Estimated Glomerular Filt Rate > 60.0 mL/min (>60); Globulin 3.2 g/dL (1.7-4.1); Glucose 118 mg/dL (80-110); HDL Cholesterol 46 mg/dL (40-60); HEMOLYSIS < 15 (0-50); LDL Cholesterol Calculated 58 mg/dL (<100); Potassium 4.6 mmol/L (3.4-5.1); Sodium 137 mmol/L (137-145); Total Protein 7.4 g/dL (6.3-8.2); Triglycerides 149 mg/dL (35-150)
[2020-06-02 12:51] LABS: Prostate Specific Antigen Scrn 0.386 ng/mL (0.1-4.0)
== END ==
PROVIDERS: PCP Family Medicine; Referring Provider Family Medicine; Visit Provider Family Medicine
DX: E78.5 Hyperlipidemia, unspecified (principal); R97.20 Elevated prostate specific antigen [PSA]; F32.9 Major depressive disorder, single episode, unspecified; I10 Essential (primary) hypertension; I48.91 Unspecified atrial fibrillation; Z12.5 Encounter for screening for malignant neoplasm of prostate
CPT/HCPCS: 36415; 80053; 80061; 85025; G0103

== ENCOUNTER → 2020-09-04 14:10 | Outpatient (CLI) | payer OTHER, SELFPAY ==
--- NOTE | 2020-09-04 | DI.US.S_ITS ---
PROCEDURE: US CAROTID DOPPLER BI INDICATIONS: STENOSIS TECHNIQUE: Color and pulse Doppler interrogation was performed of both carotid systems, with image documentation and velocity measurements. COMPARISON: [facility] Ultrasound [facility], [place], CAROTID DUPLEX DOPPLER BILAT, 09/25/2010, 8:52. [facility], [place], US CAROTID DOPPLER BI, 09/25/2018, 8:18. FINDINGS: Stenosis calculations are based on SRU (Society of Radiologists in Ultrasound) criteria. The flow velocities and the arterial waveforms are normal within both carotid arterial systems. Atherosclerotic plaque is seen on both sides. The estimated degree of internal carotid artery stenosis is less than 50%. Antegrade flow is confirmed within both vertebral arteries. IMPRESSION: No hemodynamically significant stenosis is seen. Atherosclerotic plaque is noted bilaterally. Dictated by: Jin Martin M.D. on 09/04/2020 at 14:56 Approved by: Jin Martin M.D. on 09/04/2020 at 14:58
--- NOTE | 2020-09-04 | DI.ECHO.S_ITS ---
[facility]---------+ [facility] +---------+ : : [address] : [address] : : : : [id number] : : : : Phone: [phone] +---------+ Echocardiogram Report + + :Name: JENIFFER MCGEE Study Date: 09/04/2020 Height: 65 in : :[facility] ReadingLocation: Weight: 220 lb : : Gender: Male BSA: 2.1 m2 : :: 1945 Age: 75 yrs BP: 106/67 mmHg: :Reason For Study: HISTORY OF BENIGN NEOPLASM : :Ordering Physician: VALERIE, : :SOFÍA Performed By: Mary Yen : :Referring: SOFÍA PADILLA : + + Interpretation Summary The left ventricle is mildly dilated. The ejection fraction is estimated to be 30-35%. No significant change in LVEF from the previous study. Distal third of the LV is akinetic including LV apex as well as akinetic mid to distal anterior septum without any significant change from the previous study. The right ventricle is normal in size and function. There is a pacemaker lead in the right ventricle. There is mild tricuspid regurgitation. Compared to the prior echo exam, there has been a decrease in TR severity. There is mild to moderate mitral regurgitation. Compared to the prior echo study, there has been no change in the severity of mitral regurgitation. No obvious intracardiac mass seen. Procedure: A two-dimensional transthoracic echocardiogram with color flow and Doppler was performed. The study quality was technically difficult. Comparison is made with the echocardiogram of 12/30/2018. The patient was in sinus rhythm with heart rates between 52-74 bpm during the exam. Left Ventricle: The left ventricle is mildly dilated. There is normal left ventricular wall thickness. There is no thrombus. A false chord is noted (normal variant). The ejection fraction is estimated to be 30-35%. Distal third of the LV is akinetic including LV apex as well as akinetic mid to distal anterior septum without any significant change from the previous study. E/E' med: 20.5. Right Ventricle: The right ventricle is normal in size and function. There is a pacemaker lead in the right ventricle. Atria: The left atrium is mildly dilated. There has been no significant change since the previous study. Right atrial size is normal. There is a catheter/pacemaker lead seen in the right atrium. There is no Doppler evidence for an interatrial shunt. Mitral Valve: There is mild mitral annular calcification. There is mild to moderate mitral regurgitation. Compared to the prior echo study, there has been no change in the severity of mitral regurgitation. Aortic Valve: The aortic valve is mildly calcified. The aortic valve is trileaflet. There is no aortic valve stenosis. There is trace aortic regurgitation. Tricuspid Valve: The tricuspid valve is not well visualized, but is grossly normal. There is mild tricuspid regurgitation. Pulmonary artery pressures cannot be estimated because of the lack of a measurable TR jet velocity but the IVC suggests a CVP of around 3 mmHg. Compared to the prior echo exam, there has been a decrease in TR severity. Pulmonic Valve: The pulmonic valve is not well seen, but is grossly normal. There is trace pulmonic regurgitation. Great Vessels: The aortic root is normal size. The ascending aorta could not be visualized. The IVC is of normal diameter and collapses greater than 50% with a sniff. This suggests a low right atrial pressure of 3 mm Hg. Pericardium/ Pleura There is no pericardial effusion. There is no pleural effusion. MMode/2D Measurements & Calculations LVIDd: 5.8 cm LVOT diam: 2.3 cm LVIDs: 4.7 cm Ao root diam: 3.2 cm FS: 18.9 % Ao Arch Diam (Prox Trans): 2.9 cm EPSS: 1.3 cm IVSd: 0.74 cm LVPWd: 1.0 cm LV carias. diameter/BSA (cm/m^2): 2.8 LV sys. diameter/BSA (cm/m^2): 2.3 LA A2 area: 21.8 cm2 RA long axis: 4.4 cm LA A4 area: 21.4 cm2 RA area: 14.0 cm2 LA length (vol): 5.5 cm RA vol: 37.8 ml LA vol: 72.2 ml RA : 18.3 ml/m2 LA vol index: 35.0 ml/m2 IVC diam: 1.7 cm RVD1 (basal): 4.0 cm TAPSE: 1.8 cm Doppler Measurements & Calculations Ao V2 max: 97.7 cm/sec LVOT Max Juan: 63.3 cm/sec Ao V2 mean: 73.3 cm/sec LV V1 max P.6 mmHg Ao max P.8 mmHg LV V1 VTI: 15.9 cm Ao mean P.3 mmHg AJIT(I,D): 2.6 cm2 Ao V2 VTI: 25.4 cm AJIT(V,D): 2.7 cm2 sev ratio: 0.63 AJIT indexed to BSA (cm^2/m^2): 1.3 MV E max juan: 90.2 cm/sec PA pr(Accel): 31.0 mmHg Med Peak E' Juan: 4.4 cm/sec E/E' med: 20.5 Lat Peak E' Juan: 7.3 cm/sec E/E' lat: 12.3 E/e' average: 16.4 MV dec time: 0.23 sec SV(LVOT): 67.1 ml Reading Physician:02:43 PM
== END ==
PROVIDERS: PCP Family Medicine; Referring Provider Internal Medicine Cardiovascular Disease; Visit Provider Internal Medicine Cardiovascular Disease
DX: I65.23 Occlusion and stenosis of bilateral carotid arteries (principal); I08.1 Rheumatic disorders of both mitral and tricuspid valves; I71.4 Abdominal aortic aneurysm, without rupture; I70.0 Atherosclerosis of aorta; D15.1 Benign neoplasm of heart; Z98.890 Other specified postprocedural states; Z95.0 Presence of cardiac pacemaker
CPT/HCPCS: 93306; 93880

== ENCOUNTER → 2020-10-05 12:17 | Outpatient (CLI) | payer OTHER, SELFPAY ==
--- NOTE | 2020-10-05 12:19 | DI.RAD.S_ITS ---
PROCEDURE: XR KNEE RT 3V INDICATIONS: Right knee pain TECHNIQUE: 3 views of the knee were acquired. COMPARISON: [facility], , KNEE 3V LEFT, 12/27/2016, 15:32. FINDINGS: Bones: No fractures or dislocations. No suspicious bony lesions. Mild tricompartmental degenerative change. No erosions. Soft tissues: No joint effusion. No suspicious soft tissue calcifications. IMPRESSION: Mild tricompartmental arthritis. No visualized acute fracture or dislocation. However, if clinical concern and/or pain persist, short interval imaging followup in 7-10 days is recommended, as occult injury cannot be definitively excluded. Dictated by: Benita Quijano M.D. on 10/05/2020 at 13:23 Approved by: Benita Quijano M.D. on 10/05/2020 at 13:24
[2020-10-05 13:21] LABS: D Dimer 414 ng/mL (<230)
== END ==
PROVIDERS: PCP Family Medicine; Referring Provider Student in an Organized Health Care Education/Training Program; Visit Provider Student in an Organized Health Care Education/Training Program
DX: M25.561 Pain in right knee (principal)
CPT/HCPCS: 36415; 73562; 85379

== ENCOUNTER → 2021-02-17 10:01 | Outpatient (CLI) | payer OTHER, SELFPAY ==
[2021-02-17 13:03] LABS: Prostate Specific Antigen 0.422 ng/mL (0.10-4.00)
== END ==
PROVIDERS: PCP Family Medicine; Referring Provider Family Medicine; Visit Provider Family Medicine
DX: R97.20 Elevated prostate specific antigen [PSA] (principal); R39.9 Unspecified symptoms and signs involving the genitourinary system
CPT/HCPCS: 36415; 84153

== ENCOUNTER → 2021-07-18 12:01 | Outpatient (CLI) | payer OTHER, SELFPAY ==
[2021-07-18 13:29] LABS: Alanine Aminotransferase 35 IU/L (<50); Albumin 4.1 g/dL (3.5-5.0); Albumin Globulin Ratio 1.4 (1.0-2.8); Alkaline Phosphatase 79 U/L (38-126); Aspartate Aminotransferase 26 IU/L (17-59); BUN Creatinine Ratio 27.5 (6-22); Bilirubin Total 0.9 mg/dL (0.2-1.3); Blood Urea Nitrogen 28 mg/dL (9-20); Calcium 9.3 mg/dL (8.4-10.2); Carbon Dioxide 30 mmol/L (22-32); Chloride 104 mmol/L (98-107); Cholesterol 109 mg/dL (140-199); Estimated Glomerular Filt Rate > 60.0 mL/min (>60); Globulin 2.9 g/dL (1.7-4.1); Glucose 109 mg/dL (80-110); HDL Cholesterol 43 mg/dL (40-60); HEMOLYSIS < 15 (0-50); LDL Cholesterol Calculated 49 mg/dL (<100); Potassium 4.6 mmol/L (3.4-5.1); Sodium 139 mmol/L (137-145); Triglycerides 83 mg/dL (35-150)
== END ==
PROVIDERS: PCP Family Medicine; Referring Provider Internal Medicine Cardiovascular Disease; Visit Provider Internal Medicine Cardiovascular Disease
DX: E78.5 Hyperlipidemia, unspecified (principal)
CPT/HCPCS: 36415; 80053; 80061

== ENCOUNTER → 2021-09-14 10:29 | Outpatient (CLI) | payer OTHER, SELFPAY ==
--- NOTE | 2021-09-14 10:30 | DI.RAD.S_ITS ---
PROCEDURE: XR CERVICAL SPINE 2V OR 3V INDICATIONS: pain, stiffness TECHNIQUE: 3 view(s) of the cervical spine were acquired. COMPARISON: None. FINDINGS: Bones: No fractures or dislocations to the C7 level. Kyphotic curvature. C4-C7 appears diffuse. There is moderate degenerative disc and facet disease in cervical spine. The odontoid view is abdominal. No suspicious bony lesions. Soft tissues: No prevertebral soft tissue swelling. IMPRESSION: 1. 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 If clinical symptoms persist or clinical suspicion for nerve root impingement is high, MRI is suggested for further evaluation. 2. Kyphosis. Dictated by: Zuleima Sierra M.D. on 09/14/2021 at 11:57 Approved by: Zuleima Sierra M.D. on 09/14/2021 at 12:08
== END ==
PROVIDERS: PCP Family Medicine; Referring Provider Family Medicine; Visit Provider Family Medicine
DX: M47.812 Spondylosis without myelopathy or radiculopathy, cervical region (principal); M50.30 Other cervical disc degeneration, unspecified cervical region; M40.202 Unspecified kyphosis, cervical region; G89.29 Other chronic pain
CPT/HCPCS: 72040

== ENCOUNTER → 2022-02-12 10:22 | Outpatient (CLI) | payer OTHER, SELFPAY ==
[2022-02-12 15:03] LABS: BUN Creatinine Ratio 27.8 (6-22); Blood Urea Nitrogen 27 mg/dL (9-20); Calcium 9.1 mg/dL (8.4-10.2); Carbon Dioxide 29 mmol/L (22-32); Chloride 101 mmol/L (98-107); Estimated Glomerular Filt Rate > 60 mL/min (>60); Glucose 96 mg/dL (80-110); HEMOLYSIS < 15 (0-50); Potassium 4.6 mmol/L (3.4-5.1); Sodium 136 mmol/L (137-145)
== END ==
PROVIDERS: PCP Family Medicine; Referring Provider Internal Medicine Cardiovascular Disease; Visit Provider Internal Medicine Cardiovascular Disease
DX: I48.0 Paroxysmal atrial fibrillation (principal)
CPT/HCPCS: 36415; 80048

== ENCOUNTER → 2022-02-14 09:45 | Outpatient (CLI) | payer OTHER, SELFPAY ==
--- NOTE | 2022-02-14 09:46 | DI.ECHO.S_ITS ---
[facility] +---------+ [facility] +---------+ : : [address] : [address] : : : : [id number] : : : : Phone: [phone] : [phone] +---------+ Echocardiogram Report + + :Name: JENIFFER MCGEE Study Date: 02/14/2022 Height: 65 in : :[facility] ReadingLocation: Weight: 185 lb : : Gender: Male BSA: 1.9 m2 : :: 1945 Age: 77 yrs BP: 126/67 mmHg: :Reason For Study: HISTORY OF ATRIAL MYXOMA : :Ordering Physician: VALERIE, : :SOFÍA Performed By: Mary Yen : :Referring: SOFÍA PADILLA : + + Interpretation Summary The left ventricle is normal in size and wall thickness. The ejection fraction is estimated to be 30-35%. There has been no significant change in LVEF since the previous exam. Distal third of the LV is akinetic including LV apex as well as akinetic mid to distal anterior septum without any significant change from the previous study. MV E/A: 0.61 Med Peak E' Juan: 3.6 cm/sec E/E' med: 16.2 The right ventricle looks grossly normal in size and function in subcostal window. There is a pacemaker lead in the right ventricle. No obvious RV or RA mass seen. There is mild to moderate mitral regurgitation. No significant change from the previous study. There is mild aortic regurgitation. Previously trivial AR. There is mild tricuspid regurgitation. Compared to the prior echo exam, there has been no change in TR severity. Right ventricular systolic pressure is estimated to be 29 mmHg plus the clinically estimated CVP which cannot be estimated on this exam. Mild atherosclerotic plaque(s) in the aortic arch. Procedure: A two-dimensional transthoracic echocardiogram with color flow and Doppler was performed. The study quality was technically adequate. Comparison is made with the echocardiogram of . The patient was in sinus rhythm with heart rates between 51-74 bpm during the exam. The patient had a bundle branch block rhythm during the exam. Left Ventricle: The left ventricle is normal in size and wall thickness. There is no thrombus. The ejection fraction is estimated to be 30-35%. There has been no significant change since the previous exam. Distal third of the LV is akinetic including LV apex as well as akinetic mid to distal anterior septum without any significant change from the previous study. MV E/A: 0.61 Med Peak E' Juan: 3.6 cm/sec E/E' med: 16.2. Right Ventricle: The right ventricle looks grossly normal in size and function in subcostal window. There is a pacemaker lead in the right ventricle. Atria: The left atrium is mildly dilated. There has been no significant change since the previous study. Right atrium not well visualized. There is a catheter/pacemaker lead seen in the right atrium. There is no Doppler evidence for an interatrial shunt. Mitral Valve: The mitral valve leaflets appear mildly thickened, but open well. There is mild mitral annular calcification. There is mild to moderate mitral regurgitation. Compared to the prior echo study, there has been no change in the severity of mitral regurgitation. Aortic Valve: The aortic valve is trileaflet. The aortic valve is mildly calcified. The aortic valve opens well. There is no aortic valve stenosis. There is mild aortic regurgitation. Tricuspid Valve: The tricuspid valve is not well visualized, but is grossly normal. There is mild tricuspid regurgitation. Right ventricular systolic pressure is estimated to be 29 mmHg plus the clinically estimated CVP which cannot be estimated on this exam. Compared to the prior echo exam, there has been no change in TR severity. Pulmonic Valve: The pulmonic valve is not well seen, but is grossly normal. There is trace pulmonic regurgitation. Great Vessels: The aortic root is normal size. The ascending aorta could not be visualized. Mild atherosclerotic plaque(s) in the aortic arch. The inferior vena cava was not well visualized. Pericardium/ Pleura There is no pericardial effusion. There is no pleural effusion. MMode/2D Measurements & Calculations LVIDd: 5.2 cm LVOT diam: 2.2 cm LVIDs: 4.1 cm Ao root diam: 3.3 cm FS: 20.4 % Ao Arch Diam (Prox Trans): 3.1 cm EPSS: 1.4 cm IVSd: 0.88 cm LVPWd: 1.0 cm LV carias. diameter/BSA (cm/m^2): 2.7 LV sys. diameter/BSA (cm/m^2): 2.2 LA A2 area: 16.0 cm2 TAPSE: 2.0 cm LA A4 area: 18.9 cm2 LA length (vol): 5.2 cm LA vol: 49.2 ml LA vol index: 25.7 ml/m2 Doppler Measurements & Calculations Ao V2 max: 106.5 cm/sec LVOT Max Juan: 59.6 cm/sec Ao V2 mean: 78.0 cm/sec LV V1 max P.4 mmHg Ao max P.5 mmHg LV V1 VTI: 13.6 cm Ao mean P.7 mmHg AJIT(I,D): 1.8 cm2 Ao V2 VTI: 27.3 cm AJIT(V,D): 2.0 cm2 sev ratio: 0.50 AJIT indexed to BSA (cm^2/m^2): 0.95 MV E max juan: 58.6 cm/sec TR max juan: 269.2 cm/sec MV A max juan: 95.6 cm/sec TR max P.0 mmHg MV E/A: 0.61 PA V2 max: 93.0 cm/sec Med Peak E' Juan: 3.6 cm/sec PA V2 mean: 65.1 cm/sec E/E' med: 16.2 PA mean P.9 mmHg Lat Peak E' Juan: 4.2 cm/sec PA pr(Accel): 32.8 mmHg E/E' lat: 14.1 E/e' average: 15.1 MV dec time: 0.27 sec SV(LVOT): 49.6 ml Reading Physician:04:54 PM
--- NOTE | 2022-02-14 09:46 | DI.US.S_ITS ---
PROCEDURE: US CAROTID DOPPLER BI INDICATIONS: History of atrial myxoma TECHNIQUE: Color and pulse Doppler interrogation was performed of both carotid systems, with image documentation and velocity measurements. COMPARISON: [facility], [place], US CAROTID DOPPLER BI, 09/04/2020, 14:19. FINDINGS: Stenosis calculations are based on SRU (Society of Radiologists in Ultrasound) criteria. Right side: Brachial blood pressure: 115/69 mm Hg. Common carotid artery peak systolic velocity: 92 cm/sec. Internal carotid artery peak systolic velocity: 111 cm/sec. Internal carotid artery end diastolic velocity: 20 cm/sec. External carotid artery peak systolic velocity: 109 cm/sec. ICA/CCA peak systolic ratio: 1.2 . Ritchie scale imaging description: Mild atheromatous plaque is present in the common carotid Percent internal carotid artery stenosis: Less than 50% stenosis . Vertebral artery: The right vertebral artery is not visualized. Left side: Brachial blood pressure: 139/70 mm Hg. Common carotid artery peak systolic velocity: 68 cm/sec. Internal carotid artery peak systolic velocity: 107 cm/sec. Internal carotid artery end diastolic velocity: 22 cm/sec. External carotid artery peak systolic velocity: 172 cm/sec. ICA/CCA peak systolic ratio: 1.6 . Ritchie scale imaging description: Dense atheromatous plaque is present at the carotid bifurcation Percent internal carotid artery stenosis: Less than 50% stenosis . Vertebral artery: Flow direction is antegrade. IMPRESSION: 1. Less than 50% stenosis of the bilateral internal carotid arteries. 2. Nonvisualization of the right vertebral artery likely secondary to patient's inability to extend neck or turn head. Dictated by: Kimberley Pete M.D. on 02/14/2022 at 15:52 Approved by: Kimberley Pete M.D. on 02/14/2022 at 15:54
== END ==
PROVIDERS: PCP Family Medicine; Referring Provider Internal Medicine Cardiovascular Disease; Visit Provider Internal Medicine Cardiovascular Disease
DX: Z09 Encounter for follow-up examination after completed treatment for conditions other than malignant neoplasm (principal); Z86.018 Personal history of other benign neoplasm; I65.23 Occlusion and stenosis of bilateral carotid arteries; Z98.890 Other specified postprocedural states
CPT/HCPCS: 93306; 93880

== ENCOUNTER → 2022-02-19 10:57 | Outpatient (CLI) | payer OTHER, SELFPAY ==
[2022-02-19 12:04] LABS: Prothrombin Time 35.4 SECONDS (10.1-12.7)
== END ==
PROVIDERS: PCP Family Medicine; Referring Provider Family Medicine; Visit Provider Family Medicine
DX: Z79.01 Long term (current) use of anticoagulants (principal)
CPT/HCPCS: 36415; 85610

== ENCOUNTER → 2022-03-21 11:44 | Outpatient (CLI) | payer OTHER, SELFPAY ==
[2022-03-21 14:14] LABS: INR 2.3 (0.9-1.3)
== END ==
PROVIDERS: PCP Family Medicine; Referring Provider Family Medicine; Visit Provider Family Medicine
DX: I48.11 Longstanding persistent atrial fibrillation (principal); Z79.01 Long term (current) use of anticoagulants
CPT/HCPCS: 36415; 85610

== ENCOUNTER → 2022-04-19 12:50 | Outpatient (CLI) | payer OTHER, SELFPAY ==
[2022-04-19 15:52] LABS: INR 2.9 (0.9-1.3); Prothrombin Time 33.5 SECONDS (10.1-12.7)
== END ==
PROVIDERS: PCP Family Medicine; Referring Provider Family Medicine; Visit Provider Family Medicine
DX: I48.11 Longstanding persistent atrial fibrillation (principal); Z79.01 Long term (current) use of anticoagulants
CPT/HCPCS: 36415; 85610

== ENCOUNTER → 2022-05-21 10:39 | Outpatient (CLI) | payer OTHER, SELFPAY | PROVIDERS: PCP Family Medicine; Referring Provider Family Medicine; Visit Provider Family Medicine | DX: I25.10 Atherosclerotic heart disease of native coronary artery without angina pectoris (principal); Z79.01 Long term (current) use of anticoagulants; Z95.0 Presence of cardiac pacemaker; Z95.1 Presence of aortocoronary bypass graft; I48.11 Longstanding persistent atrial fibrillation | CPT/HCPCS: 36415; 85610 ==

== ENCOUNTER 2022-06-17 17:58 | Emergency (ER) | payer OTHER, SELFPAY ==
[2022-06-17] VITALS (11 sets, daily range): BP systolic 127–157; BP diastolic 60–75; PULSE 63–79; RESP 16–18; TEMP 36.3; O2SAT 88–98; BMI 32.5
--- NOTE | 2022-06-17 18:15 | DI.RAD.S_ITS ---
PROCEDURE: XR CHEST 1V INDICATIONS: chest pain TECHNIQUE: One view of the chest was acquired. COMPARISON: [facility], , XR CHEST 1V, 12/19/2017, 10:51. [facility], , CHEST FOR PICC PLACEMENT, 01/31/2012, 10:07. FINDINGS: Surgical changes and devices: Left pacemaker. Post median sternotomy and CABG. Lungs and pleura: Lungs are clear. No pleural effusions or pneumothorax. Mediastinum: Mediastinal contours appear unchanged. Heart size is prominent. Bones and chest wall: No suspicious bony lesions. Overlying soft tissues appear unremarkable. IMPRESSION: No acute cardiopulmonary abnormality identified. Dictated by: Nima Briscoe M.D. on 06/17/2022 at 19:07 Approved by: Nima Briscoe M.D. on 06/17/2022 at 19:08
[2022-06-17 18:33] LABS: Add Manual Diff / Slide Review NO; Basophils Absolute Auto 100 /uL (0-100); Basophils Percent Auto 0.6 % (0-2); Eosinophils Absolute Auto 200 /uL (0-450); Eosinophils Percent Auto 1.9 % (2-4); Hemoglobin 14.1 g/dL (13.5-17.5); Lymphocytes Absolute Auto 1800 /uL (1100-4500); Lymphocytes Percent Auto 18.6 % (25-40); Mean Corpuscular HGB Conc 33.6 % (30-36); Mean Corpuscular Hemoglobin 30.9 PG (26-34); Monocytes Absolute Auto 800 /uL (0-900); Monocytes Percent Auto 8.8 % (3-14); Neutrophils Absolute Auto 6700 /uL (1500-7000); Neutrophils Percent Auto 70.1 % (50-75); Platelet Count 232 X10^3/uL (150-400); Red Blood Cell Count 4.56 X10^6/uL (4.5-5.9); Red Cell Distribution Width 14.1 % (11.6-14.8); White Blood Cell Count 9.5 X10^3/uL (4.5-11.0)
[2022-06-17 18:40] LABS: INR 3.4 (0.9-1.3); Prothrombin Time 39.6 SECONDS (10.1-12.7)
[2022-06-17 18:42] LABS: PTT Partial Thromboplastin Tim 44 SECONDS (26-36)
[2022-06-17 18:45] LABS: Alanine Aminotransferase 39 IU/L (<50); Albumin 4.3 g/dL (3.5-5.0); Albumin Globulin Ratio 1.1 (1.0-2.8); Alkaline Phosphatase 85 U/L (38-126); Aspartate Aminotransferase 34 IU/L (17-59); BUN Creatinine Ratio 33.3 (6-22); Blood Urea Nitrogen 31 mg/dL (9-20); Calcium 8.9 mg/dL (8.4-10.2); Carbon Dioxide 26 mmol/L (22-32); Chloride 99 mmol/L (98-107); Creatine Kinase 49 U/L (55-170); Estimated Glomerular Filt Rate > 60 mL/min (>60); Globulin 3.9 g/dL (1.7-4.1); Glucose 102 mg/dL (80-110); Lipase 161 U/L (23-300); Magnesium 1.8 mg/dL (1.6-2.3); Sodium 136 mmol/L (137-145); Total Protein 8.2 g/dL (6.3-8.2)
[2022-06-17 18:50] LABS: HEMOLYSIS 69 (0-50); Potassium 4.7 mmol/L (3.4-5.1)
[2022-06-17 18:57] LABS: Troponin I < 0.012 ng/mL (0.01-0.034)
--- NOTE | 2022-06-17 18:57 | ED.CHESTPAIN ---
HPI - Chest Pain General Chief Complaint: Chest Pain Stated Complaint: Chest pains Time Seen by Provider: 06/17/22 18:17 Source: patient and family Mode of arrival: Ambulatory History of Present Illness HPI narrative: 77M former smoker with history of A fib on anticoagulation with pacer/AICD presents with chest pain over the course of the day. He states that he feels fine otherwise and denies associated symptoms such as dizziness, weakness or lightheadedness. He denies any shortness of breath, nausea, vomiting or unexplained diaphoresis. He denies any provocation, palliation or radiation of his discomfort. He states it is very mild and is very clear that is not a pain but just something feels ?weird? in his chest. He states that the episodes come and go with a mind of their own in are largely in the center of his chest. He states that they seem to last 1-2 minutes and then resolve without any palliation. He denies any exercise intolerance, recent injury, dietary or medication change Related Data Home Medications Medication Instructions Recorded Confirmed isosorbide dinitrate 30 mg tablet 30 mg PO DAILY ##0 09/15/11 09/14/21 spironolactone 25 mg tablet 25 mg PO QDAY ##0 09/15/11 09/14/21 losartan 25 mg tablet 25 mg PO QDAY ##0 06/02/12 09/14/21 atorvastatin 40 mg tablet (Lipitor) 40 mg PO QPM ##0 07/23/17 09/14/21 metoprolol succinate 50 mg 50 mg PO DAILY 09/23/18 09/14/21 tablet,extended release 24 hr sotalol 80 mg tablet 80 mg PO BID 09/23/18 09/14/21 aspirin 81 mg tablet,delayed 81 mg PO DAILY 10/06/18 09/14/21 release (Adult Aspirin Regimen) warfarin 2.5 mg tablet 2.5 mg PO .COMPLEX 11/22/21 01/23/22 Previous Rx's Medication Instructions Recorded hydrocodone 5 mg-acetaminophen 325 See Rx Instructions .Route 04/11/22 mg tablet .COMPLEX #90 tabs Allergies Allergy/AdvReac Type Severity Reaction Status Date / Time adhesive Allergy Mild BLISTERS Verified 09/14/21 09:48 AND RASH lisinopril AdvReac Mild COUGH Verified 09/14/21 09:48 Review of Systems Review of Systems Narrative: GENERAL: Denies chills, fatigue, malaise, fever, sweats. HEENT: Denies sinus pain, ear pain, sore throat, difficulty swallowing, dizziness. RESPIRATORY: Denies dyspnea, cough, wheezing, hemoptysis, sputum. CARDIOVASCULAR: See HPI GASTROINTESTINAL: Denies nausea, vomiting, abdominal pain, diarrhea, constipation, melena. : Denies dysuria, frequency, incontinence, hematuria, urinary retention. MUSCULOSKELETAL: denies weakness, joint pain, or bony pain SKIN: Denies rash, skin lesions, or other NEUROLOGIC: Denies weakness, headache, numbness, change in speech, confusion, seizures, incoordination. PSYCHIATRIC: No concerning psychosocial issues. 12 point review of systems is negative except for those stated above Patient History Medical History Actinic keratoses Ankle pain (2016) Atrial fibrillation Cardiac arrhythmia (~2014) Cardiac tumor (~2001) Cervical somatic dysfunction Chicken pox (1975) Chronic neck pain Colon polyps Coronary artery disease (1998) Cranial somatic dysfunction Excessive cerumen in both ear canals Foot pain Hearing loss Hyperlipidemia Hypertension Insomnia secondary to chronic pain Kidney stones Measles Mumps Neck stiffness Pacemaker (1998) Right medial knee pain Shoulder pain Sleep apnea (~1999) Surgical History AICD (automatic cardioverter/defibrillator) present (12/29/15) Anesthesia History of colonoscopy with polypectomy (05/24/09) History of colonoscopy with polypectomy (07/08/14) History of right-sided carotid endarterectomy (~09/2010) S/P CABG (coronary artery bypass graft) (1998) Status post cardiac surgery (~2001) Status post carotid surgery (1998) Status post placement of cardiac pacemaker (~2001) Family History Brother Age: 79 Heart disease Child Liver failure Father Heart disease Grandfather Heart disease Mother MS (multiple sclerosis) Grandmother No problems noted. Sister Stomach cancer Sister Heart disease Social History Smoking Status: Former smoker Smoking Status: Former smoker alcohol intake frequency: 0-2 drinks per day Substance Use Type: does not use Exam Narrative Exam Narrative: GENERAL: [77] year old patient appears stated age. Well-developed patient, in mild distress. HEAD: Atraumatic. Normocephalic. EYES: Pupils equal round and reactive. Extraocular motions intact. No scleral icterus. No injection or drainage. ENT: Nose without bleeding, purulent drainage. Throat without erythema, tonsillar hypertrophy or exudate. Airway patent. NECK: Trachea midline. Non tender CARDIOVASCULAR: Regular rate and rhythm without murmurs, gallops, or rubs. RESPIRATORY: Clear to auscultation. Breath sounds equal bilaterally. No wheezes, rales, or rhonchi. GASTROINTESTINAL: Abdomen soft, non-tender, nondistended. EXTREMITIES: No edema or joint tenderness. BACK: Nontender without deformity or crepitance. No flank tenderness. NEURO: AOx3. SKIN: No rash or erythema of visible areas Initial Vital Signs Initial Vital Signs: Vital Signs Temperature 97.4 F L 06/17/22 18:06 Pulse Rate 72 06/17/22 18:06 Respiratory Rate 16 06/17/22 18:06 Blood Pressure 157/75 H 06/17/22 18:06 Pulse Oximetry 98 06/17/22 18:06 Oxygen Delivery Method 06/17/22 18:06 Course Orders Ordered: ED Orders 06/17/22 18:15 XR chest 1V Stat COVID19 -Nasal RAPID/Pre-Proc Stat EKG-12 Lead Stat 06/17/22 18:26 Complete Blood Count AUTO DIFF Stat Comprehensive Metabolic Panel Stat Lipase Stat Magnesium Stat Partial Thromboplastin Time Stat Prothrombin Time INR Stat Troponin & CK Cardiac Panel Stat 06/17/22 20:20 EKG-12 Lead Stat 06/17/22 21:00 Troponin & CK Cardiac Panel Stat Vital Signs Vital signs: Vital Signs - 8 hr 06/17/22 18:06 Temperature 97.4 F L Pulse Rate 72 Respiratory Rate 16 Blood Pressure 157/75 H Pulse Oximetry 98 Oxygen Delivery Method Room Air MDM - Chest Pain Lab Data Result diagrams: 06/17/22 18:26 06/17/22 18:26 Labs: Lab Results 06/17/22 06/17/22 06/17/22 Range/Units 18:26 18:26 18:26 WBC 9.5 (4.5-11.0) X10^3/uL RBC 4.56 (4.5-5.9) X10^6/uL Hgb 14.1 (13.5-17.5) g/dL Hct 42.0 (41-53) % MCV 92.0 (80-100) fL MCH 30.9 (26-34) PG MCHC 33.6 (30-36) % RDW 14.1 (11.6-14.8) % Plt Count 232 (150-400) X10^3/uL Neut % (Auto) 70.1 (50-75) % Lymph % (Auto) 18.6 L (25-40) % [place] % (Auto) 8.8 (3-14) % Eos % (Auto) 1.9 L (2-4) % Baso % (Auto) 0.6 (0-2) % Neut # (Auto) 6700 (2966-9350) /uL Lymph # (Auto) 1800 (6527-4496) /uL [place] # (Auto) 800 (0-900) /uL Eos # (Auto) 200 (0-450) /uL Baso # (Auto) 100 (0-100) /uL PT 39.6 H (10.1-12.7) SECONDS INR 3.4 H (0.9-1.3) APTT 44 H (26-36) SECONDS Sodium 136 L (137-145) mmol/L Potassium 4.7 (3.4-5.1) mmol/L Chloride 99 (98-107) mmol/L Carbon Dioxide 26 (22-32) mmol/L BUN 31 H (9-20) mg/dL Creatinine 0.93 (0.66-1.25) mg/dL Estimated GFR > 60 (>60) mL/min BUN/Creatinine Ratio 33.3 H (6-22) Glucose 102 (80-110) mg/dL Calcium 8.9 (8.4-10.2) mg/dL Magnesium 1.8 (1.6-2.3) mg/dL Total Bilirubin 1.0 (0.2-1.3) mg/dL AST 34 (17-59) IU/L ALT 39 (<50) IU/L Alkaline Phosphatase 85 (38-126) U/L Total Creatine Kinase 49 L (55-170) U/L CK-MB (CK-2) TNP CK-MB (CK-2) Rel Index TNP Troponin I < 0.012 (0.01-0.034) ng/mL Total Protein 8.2 (6.3-8.2) g/dL Albumin 4.3 (3.5-5.0) g/dL Globulin 3.9 (1.7-4.1) g/dL Albumin/Globulin Ratio 1.1 (1.0-2.8) Lipase 161 (23-300) U/L // Range/Units 21:30 WBC (4.5-11.0) X10^3/uL RBC (4.5-5.9) X10^6/uL Hgb (13.5-17.5) g/dL Hct (41-53) % MCV (80-100) fL MCH (26-34) PG MCHC (30-36) % RDW (11.6-14.8) % Plt Count (150-400) X10^3/uL Neut % (Auto) (50-75) % Lymph % (Auto) (25-40) % [place] % (Auto) (3-14) % Eos % (Auto) (2-4) % Baso % (Auto) (0-2) % Neut # (Auto) (7169-3827) /uL Lymph # (Auto) (1116-4339) /uL [place] # (Auto) (0-900) /uL Eos # (Auto) (0-450) /uL Baso # (Auto) (0-100) /uL PT (10.1-12.7) SECONDS INR (0.9-1.3) APTT (26-36) SECONDS Sodium (137-145) mmol/L Potassium (3.4-5.1) mmol/L Chloride (98-107) mmol/L Carbon Dioxide (22-32) mmol/L BUN (9-20) mg/dL Creatinine (0.66-1.25) mg/dL Estimated GFR (>60) mL/min BUN/Creatinine Ratio (6-22) Glucose (80-110) mg/dL Calcium (8.4-10.2) mg/dL Magnesium (1.6-2.3) mg/dL Total Bilirubin (0.2-1.3) mg/dL AST (17-59) IU/L ALT (<50) IU/L Alkaline Phosphatase (38-126) U/L Total Creatine Kinase 47 L (55-170) U/L CK-MB (CK-2) TNP CK-MB (CK-2) Rel Index TNP Troponin I < 0.012 (0.01-0.034) ng/mL Total Protein (6.3-8.2) g/dL Albumin (3.5-5.0) g/dL Globulin (1.7-4.1) g/dL Albumin/Globulin Ratio (1.0-2.8) Lipase (23-300) U/L ECG Data Interpretation: [1816] EKG is normal sinus rhythm rate [70]. Right bundle-branch block (present on multiple priors dating back at least to 2018). No ST elevations or concerning T-wave abnormalities MDM Narrative Medical decision making narrative: [77-year-old male with history of hypertension, hyperlipidemia, pacemaker and AICD presents with brief episodes of funny feeling in his chest over the course of the day in the absence of exertional symptoms or provocation or palliation] Multiple etiologies for patient's symptoms considered including, but not limited to: [Cardiac ischemia, palpitations, electrolyte abnormality, pulmonary embolism versus other] Prior Charts reviewed: Including ED note from 2018 and most recent cardiology notes Labs reviewed and interpreted by myself: No significant lab abnormalities including negative troponin x2. Additionally INR is therapeutic Imaging reviewed: No acute cardio pulmonary abnormality on chest x-ray. Though pulmonary embolism was considered it is thought highly unlikely given lack of persistence of pain, pleuritic nature of pain, hemoptysis, shortness of breath, tachycardia, hypoxemia. Furthermore patient has therapeutic INR. Consultations: I did discuss this independently with patient's family member at the bedside who contributed some elements of the story. Additionally, I discussed this with the outside energy sales representatives from pacemaker company who relayed lack of any significant findings in the interrogation performed tonight Patient's symptoms improved over duration of stay with above-stated therapies. Findings and discharge diagnosis discussed with patient/family followed by verbalization of understanding Return precautions discussed with patient/family whom verbalize understanding of diagnosis and plan Discharge Plan Departure Patient Disposition: Home Clinical Impression: Atypical chest pain Instructions: DI for Atypical Chest Pain Activity Restrictions/Additional Instructions: *You have been diagnosed with [atypical chest pain. As we discussed your history and physical exam as well as EKGs, pacemaker interrogation and imaging are all very reassuring and there is no evidence of heart attack, problem with your pacemaker or other diagnosis that would require a specific or immediate intervention] *What to do: *Please continue to take your regular medications as directed. [ ] New medication prescriptions sent to your pharmacy: [ ] [ ] New medication written as a paper prescription [ x] No new medications given *Please follow up with your primary care provider in 2-3 days, call for an appointment. Let them know you were seen in the Emergency Department and that we ask that you be seen in follow up. We will electronically transmit a record of today's note if your PCP is in our system *If you do not have a primary care provider please contact the [facility] Resource line at [phone]. They will ask some questions about your medical history and help get you set up with a doctor in the community. *Return to Emergency Department if you should have any new, worsening or concerning symptoms, such as [fever greater than 101 F, shaking chills, worsening pain, persistent vomiting or other bothersome symptoms] Prescriptions: No Action spironolactone 25 MG tablet 25 mg PO QDAY Qty: 0 isosorbide dinitrate 30 MG tablet 30 mg PO DAILY Qty: 0 losartan 25 MG tablet 25 mg PO QDAY Qty: 0 atorvastatin [Lipitor] 40 MG tablet 40 mg PO QPM Qty: 0 aspirin [Adult Aspirin Regimen] 81 mg tablet,delayed release (DR/EC) 81 mg PO DAILY hydrocodone-acetaminophen 5-325 mg tablet See Rx Instructions .ROUTE .COMPLEX Qty: 90 0RF Rx Instructions: Take 1 tablet by mouth 3 times daily as needed for pain warfarin 2.5 mg tablet 2.5 mg PO .COMPLEX Rx Instructions: 3.75mg Friday, and 2.5 mg all other days, or as directed. metoprolol succinate 50 mg tablet extended release 24 hr 50 mg PO DAILY sotalol 80 mg tablet 80 mg PO BID Referrals: Jason Cruz DO [Primary Care Provider] - Visit Report Forms: Patient Portal/API
[2022-06-17 21:53] LABS: Creatine Kinase 47 U/L (55-170)
[2022-06-17 22:06] LABS: Troponin I < 0.012 ng/mL (0.01-0.034)
== END 2022-06-17 23:30 | disposition home or self-care (01) ==
PROVIDERS: Emergency Provider Emergency Medicine; PCP Family Medicine
DX: R07.89 Other chest pain (principal); Z79.899 Other long term (current) drug therapy; Z79.01 Long term (current) use of anticoagulants
CPT/HCPCS: 71045; 80053; 82550; 83690; 83735; 84484; 85025; 85610; 85730; 93005; 99283; 99284

== ENCOUNTER → 2022-06-21 13:12 | Outpatient (CLI) | payer OTHER, SELFPAY ==
[2022-06-21 14:50] LABS: INR 3.5 (0.9-1.3); Prothrombin Time 40.2 SECONDS (10.1-12.7)
== END ==
PROVIDERS: PCP Family Medicine; Referring Provider Family Medicine; Visit Provider Family Medicine
DX: I48.11 Longstanding persistent atrial fibrillation (principal); Z79.01 Long term (current) use of anticoagulants
CPT/HCPCS: 36415; 85610

== ENCOUNTER → 2022-06-28 12:52 | Outpatient (CLI) | payer OTHER, SELFPAY ==
[2022-06-28 15:14] LABS: INR 2.1 (0.9-1.3); Prothrombin Time 23.8 SECONDS (10.1-12.7)
== END ==
PROVIDERS: PCP Family Medicine; Referring Provider Family Medicine; Visit Provider Family Medicine
DX: Z79.01 Long term (current) use of anticoagulants (principal)
CPT/HCPCS: 36415; 85610

== ENCOUNTER → 2022-07-06 08:47 | Outpatient (CLI) | payer OTHER, SELFPAY ==
[2022-07-06 09:19] LABS: INR 2.7 (0.9-1.3); Prothrombin Time 30.8 SECONDS (10.1-12.7)
== END ==
PROVIDERS: PCP Family Medicine; Referring Provider Family Medicine; Visit Provider Family Medicine
DX: I48.11 Longstanding persistent atrial fibrillation (principal); Z79.01 Long term (current) use of anticoagulants
CPT/HCPCS: 36415; 85610

== ENCOUNTER → 2022-08-28 12:21 | Outpatient (CLI) | payer OTHER, SELFPAY ==
[2022-08-28 13:32] LABS: BUN Creatinine Ratio 24.2 (6-22); Blood Urea Nitrogen 29 mg/dL (9-20); Carbon Dioxide 30 mmol/L (22-32); Chloride 101 mmol/L (98-107); Estimated Glomerular Filt Rate > 60 mL/min (>60); Glucose 72 mg/dL (80-110); HEMOLYSIS < 15 (0-50); Potassium 4.3 mmol/L (3.4-5.1); Sodium 138 mmol/L (137-145)
== END ==
PROVIDERS: PCP Family Medicine; Referring Provider Internal Medicine Cardiovascular Disease; Visit Provider Internal Medicine Cardiovascular Disease
DX: I25.5 Ischemic cardiomyopathy (principal)
CPT/HCPCS: 36415; 80048

== ENCOUNTER → 2022-10-23 08:01 | Outpatient (CLI) | payer OTHER, SELFPAY ==
[2022-10-23 09:33] LABS: Add Manual Diff / Slide Review NO; Basophils Absolute Auto 0 /uL (0-100); Basophils Percent Auto 0.3 % (0-2); Eosinophils Absolute Auto 200 /uL (0-450); Eosinophils Percent Auto 2.2 % (2-4); Hematocrit 38.5 % (41-53); Hemoglobin 12.9 g/dL (13.5-17.5); Lymphocytes Absolute Auto 1600 /uL (1100-4500); Lymphocytes Percent Auto 21.9 % (25-40); Mean Corpuscular HGB Conc 33.6 % (30-36); Mean Corpuscular Hemoglobin 30.7 PG (26-34); Mean Corpuscular Volume 91.5 fL (80-100); Monocytes Absolute Auto 600 /uL (0-900); Neutrophils Absolute Auto 4800 /uL (1500-7000); Neutrophils Percent Auto 66.6 % (50-75); Platelet Count 220 X10^3/uL (150-400); Red Blood Cell Count 4.21 X10^6/uL (4.5-5.9); Red Cell Distribution Width 13.9 % (11.6-14.8); White Blood Cell Count 7.2 X10^3/uL (4.5-11.0)
[2022-10-23 09:43] LABS: Alanine Aminotransferase 34 IU/L (<50); Albumin Globulin Ratio 1.4 (1.0-2.8); Alkaline Phosphatase 77 U/L (38-126); Aspartate Aminotransferase 26 IU/L (17-59); BUN Creatinine Ratio 17.1 (6-22); Bilirubin Total 0.8 mg/dL (0.2-1.3); Blood Urea Nitrogen 18 mg/dL (9-20); Calcium 8.8 mg/dL (8.4-10.2); Carbon Dioxide 29 mmol/L (22-32); Chloride 102 mmol/L (98-107); Cholesterol 111 mg/dL (140-199); Estimated Glomerular Filt Rate > 60 mL/min (>60); Globulin 2.8 g/dL (1.7-4.1); Glucose 111 mg/dL (80-110); HDL Cholesterol 44 mg/dL (40-60); HEMOLYSIS < 15 (0-50); LDL Cholesterol Calculated 43 mg/dL (<100); Potassium 4.1 mmol/L (3.4-5.1); Sodium 138 mmol/L (137-145); Total Protein 6.8 g/dL (6.3-8.2); Triglycerides 119 mg/dL (35-150)
[2022-10-23 10:13] LABS: Prostate Specific Antigen Scrn 0.459 ng/mL (0.1-4.0)
== END ==
PROVIDERS: PCP Family Medicine; Referring Provider Family Medicine; Visit Provider Family Medicine
DX: E78.5 Hyperlipidemia, unspecified (principal); Z12.5 Encounter for screening for malignant neoplasm of prostate; I10 Essential (primary) hypertension; I25.10 Atherosclerotic heart disease of native coronary artery without angina pectoris; I48.91 Unspecified atrial fibrillation; R97.20 Elevated prostate specific antigen [PSA]; Z95.810 Presence of automatic (implantable) cardiac defibrillator
CPT/HCPCS: 36415; 80053; 80061; 85025; G0103

== ENCOUNTER → 2022-11-04 10:44 | Outpatient (CLI) | payer OTHER, SELFPAY ==
[2022-11-05 13:26] LABS: Fecal Immunochemical Test Positive (Negative)
== END ==
PROVIDERS: PCP Family Medicine; Referring Provider Family Medicine; Visit Provider Family Medicine
DX: Z12.11 Encounter for screening for malignant neoplasm of colon (principal)
CPT/HCPCS: 82274

== ENCOUNTER → 2023-04-11 12:01 | Outpatient (CLI) | payer OTHER, SELFPAY ==
[2023-04-11 13:39] LABS: Alanine Aminotransferase 36 IU/L (<50); Albumin 4.1 g/dL (3.5-5.0); Albumin Globulin Ratio 1.4 (1.0-2.8); Alkaline Phosphatase 80 U/L (38-126); Aspartate Aminotransferase 29 IU/L (17-59); BUN Creatinine Ratio 19.2 (6-22); Bilirubin Total 0.9 mg/dL (0.2-1.3); Blood Urea Nitrogen 20 mg/dL (9-20); Calcium 9.7 mg/dL (8.4-10.2); Carbon Dioxide 28 mmol/L (22-32); Chloride 100 mmol/L (98-107); Cholesterol 102 mg/dL (140-199); Estimated Glomerular Filt Rate > 60 mL/min (>60); Glucose 94 mg/dL (80-110); HDL Cholesterol 44 mg/dL (40-60); HEMOLYSIS < 15 (0-50); LDL Cholesterol Calculated 36 mg/dL (<100); Potassium 4.1 mmol/L (3.4-5.1); Sodium 136 mmol/L (137-145); Total Protein 7.1 g/dL (6.3-8.2); Triglycerides 109 mg/dL (35-150)
== END ==
PROVIDERS: PCP Family Medicine; Referring Provider Nurse Practitioner; Visit Provider Nurse Practitioner
DX: E78.5 Hyperlipidemia, unspecified (principal); I25.5 Ischemic cardiomyopathy
CPT/HCPCS: 36415; 80053; 80061

== ENCOUNTER → 2023-05-08 11:32 | Outpatient (CLI) | payer OTHER, SELFPAY ==
--- NOTE | 2023-05-08 12:24 | DI.RAD.S_ITS ---
PROCEDURE: XR CHEST 2V INDICATIONS: Cough, shortness of breath x 2 weeks TECHNIQUE: 2 views of the chest were acquired. COMPARISON: [facility], CR, XR CHEST 1V, 06/17/2022, 18:24. FINDINGS: Surgical changes and devices: Stable AICD. Stable CABG postsurgical changes. Lungs and pleura: Bilateral lung interstitial prominence. No pleural effusions or pneumothorax. Mediastinum: Mediastinal contours are normal. Heart is mildly enlarged. Bones and chest wall: No suspicious bony abnormalities. Soft tissues appear unremarkable. IMPRESSION: Bilateral lung interstitial prominence which could represent chronic lung disease, pulmonary edema or atypical pneumonia. Dictated by: Jada Burris MD, PhD on 05/08/2023 at 13:32 Approved by: Jada Burris MD, PhD on 05/08/2023 at 13:33
[2023-05-08 18:26] LABS: Influenza A - CEPHEID Flu A NEGATIVE (NEGATIVE); Influenza B - CEPHEID Flu B NEGATIVE (NEGATIVE); Respiratory Syncytial Virus Negative (Negative)
[2023-05-08 19:27] LABS: COVID-19 CEPHEID 4-PLEX PCR Negative (Negative)
== END ==
PROVIDERS: PCP Family Medicine; Referring Provider Physician Assistant; Visit Provider Physician Assistant
DX: R05.9 Cough, unspecified (principal); R19.7 Diarrhea, unspecified; R06.02 Shortness of breath
CPT/HCPCS: 0241U; 71046

== ENCOUNTER 2023-05-20 10:38 | Inpatient (IN) | payer OTHER, SELFPAY ==
[2023-05-20] VITALS (24 sets, daily range): BP systolic 110–165; BP diastolic 55–77; PULSE 64–90; RESP 17–53; TEMP 36.3–36.5; O2SAT 88–98; BMI 36.0; BMI 32.9
--- NOTE | 2023-05-20 10:45 | DI.RAD.S_ITS ---
PROCEDURE: XR CHEST 1V INDICATIONS: dyspnea TECHNIQUE: One view of the chest was acquired. COMPARISON: [facility], CR, XR CHEST 2V, 05/08/2023, 12:27. FINDINGS: Surgical changes and devices: Left chest wall pacer is seen with intact leads. Status post median sternotomy. Surgical clips in the left upper lobe. Interstitial prominence is unchanged compared to the prior study and is likely chronic. Lungs and pleura: Lungs are clear. No pleural effusions or pneumothorax. Mediastinum: Mediastinal contours appear normal. Heart size is normal. Bones and chest wall: No suspicious bony lesions. Overlying soft tissues appear unremarkable. IMPRESSION: Stable chest x-ray compared to 05/08/2023. Dictated by: Sang Ahn M.D. on 05/20/2023 at 10:13 Approved by: Sang Ahn M.D. on 05/20/2023 at 10:15
[2023-05-20 10:52] LABS: Add Manual Diff / Slide Review NO; Basophils Absolute Auto 100 /uL (0-100); Basophils Percent Auto 0.6 % (0-2); Eosinophils Absolute Auto 200 /uL (0-450); Eosinophils Percent Auto 2.1 % (2-4); Hematocrit 42.3 % (41-53); Hemoglobin 14.2 g/dL (13.5-17.5); Lymphocytes Absolute Auto 1400 /uL (1100-4500); Mean Corpuscular HGB Conc 33.6 % (30-36); Mean Corpuscular Volume 92.1 fL (80-100); Monocytes Absolute Auto 1000 /uL (0-900); Monocytes Percent Auto 10.7 % (3-14); Neutrophils Absolute Auto 6700 /uL (1500-7000); Neutrophils Percent Auto 71.6 % (50-75); Platelet Count 285 X10^3/uL (150-400); White Blood Cell Count 9.3 X10^3/uL (4.5-11.0)
--- NOTE | 2023-05-20 10:52 | ED_ITS ---
HPI - SOB/Dyspnea General Chief Complaint: Shortness of Breath/Dyspnea Stated Complaint: Diff. breathing Time Seen by Provider: 05/20/23 10:40 History of Present Illness HPI Narrative: 78-year-old male with history of congestive heart failure (EF 30-35% 03/2022) presents by EMS from home for shortness of breath. Patient has been short of breath for 6 months, however has worsened over the last several weeks. Patient states that he was treated for pneumonia last week and is no longer on antibiotics. He continued to feel short of breath this morning and called 911. EMS reports that there room oxygen saturations were 97%. He received a DuoNeb treatment EN route. Placed on 4 L of nasal cannula for comfort. On arrival patient's room oxygen saturations 89-90%. Inspiratory crackles bilateral bases. Patient denies taking diuretics in the past. Related Data Home Medications Medication Instructions Recorded Confirmed isosorbide dinitrate 30 mg tablet 30 mg PO DAILY ##0 09/15/11 05/20/23 spironolactone 25 mg tablet 25 mg PO QDAY ##0 09/15/11 05/20/23 losartan 25 mg tablet 25 mg PO QDAY ##0 06/02/12 05/20/23 metoprolol succinate 50 mg 50 mg PO DAILY 09/23/18 05/20/23 tablet,extended release 24 hr sotalol 80 mg tablet 80 mg PO BID 09/23/18 05/20/23 aspirin 81 mg tablet,delayed 81 mg PO DAILY 10/06/18 05/20/23 release (Adult Aspirin Regimen) Previous Rx's Medication Instructions Recorded atorvastatin 40 mg tablet 40 mg PO DAILY #90 tabs 03/21/23 Asmanex HFA 200 mcg/actuation 1 puff inhalation BID #13 grams 05/08/23 aerosol inhaler (mometasone) inhalational spacing device #1 ea 05/08/23 (BreatheRite MDI Spacer) albuterol sulfate 90 mcg/actuation 2 puff inhalation Q6H PRN 05/19/23 aerosol inhaler shortness of breath or wheezing #8.5 grams warfarin 2.5 mg tablet 2.5 mg PO .COMPLEX #100 tabs 05/20/23 Allergies Allergy/AdvReac Type Severity Reaction Status Date / Time adhesive Allergy Mild BLISTERS Verified 05/19/23 08:44 AND RASH lisinopril AdvReac Mild COUGH Verified 05/19/23 08:44 Review of Systems Review of Systems Narrative: Negative except as noted above Patient History Medical History (Updated 05/20/23 @ 16:50 by Joselito Das MD) Positive FIT (fecal immunochemical test) Normocytic anemia Chronic pain of both shoulders Cranial somatic dysfunction Cervical somatic dysfunction Neck stiffness Actinic keratoses Excessive cerumen in both ear canals Right medial knee pain Insomnia secondary to chronic pain Chronic neck pain Chicken pox (1975) Measles Mumps Ankle pain (2016) Foot pain Shoulder pain Sleep apnea (~1999) Colon polyps Kidney stones Hearing loss Cardiac arrhythmia (~2014) Cardiac tumor (~2001) Pacemaker (1998) Atrial fibrillation Coronary artery disease (1998) Hypertension Hyperlipidemia Surgical History History of right-sided carotid endarterectomy (~09/2010) AICD (automatic cardioverter/defibrillator) present (12/29/15) History of colonoscopy with polypectomy (07/08/14) History of colonoscopy with polypectomy (05/24/09) Status post carotid surgery (1998) Anesthesia Status post cardiac surgery (~2001) S/P CABG (coronary artery bypass graft) (1998) Status post placement of cardiac pacemaker (~2001) Family History Brother Age: 79 Heart disease Child Liver failure Father Heart disease Grandfather Heart disease Mother MS (multiple sclerosis) Grandmother No problems noted. Sister Stomach cancer Sister Heart disease Social History household members: none Smoking Status: Former smoker alcohol intake: never Smoking Status: Former smoker alcohol intake frequency: 0-2 drinks per day Substance Use Type: does not use Exam Initial Vital Signs Initial Vital Signs: Vital Signs Blood Pressure 165/77 H 05/20/23 10:41 Const: Awake, alert, chronically unwell appearing Cardiac: regular rate, regular rhythm, no edema RESP: unlabored, velcro like crackles bilaterally, diminished left lower lung sounds GI: Atraumatic, soft, nontender, nondistended, no rebound, no guarding Skin: Warm, Dry, intact, no rashes Neuro: AO x3, CN II-XII grossly intact, moves all extremities Psych: affect normal, mood normal, not suicidal, not homicidal Course Orders Ordered: Acetaminophen (Acetaminophen 325 Mg Tablet) 650 mg PO Q6H PRN PRN Reason: Fever/Mild Pain (1-3) Albuterol/Ipratropium (Albuterol/Ipratropium 3 Ml Ampul) 3 ml INH [id number] PRN PRN Reason: shortness of breath/wheezing Aspirin (Aspirin Ec 81 Mg Tablet) 81 mg PO DAILY [facility] Atorvastatin Calcium (Atorvastatin 20 Mg Tablet) 40 mg PO BEDTIME JULISA Last Admin: 05/20/23 21:58 Dose: 40 mg Documented By: MARE Benzonatate (Benzonatate 100 Mg Capsule) 100 mg PO TID PRN PRN Reason: Cough Doxycycline Hyclate (Doxycycline Hyclate 100 Mg Tablet) 100 mg PO BID [facility] Stop: 05/25/23 13:59 Last Admin: 05/20/23 21:58 Dose: 100 mg Documented By: Admin: 05/20/23 14:45 Dose: 100 mg Documented By: SOFIE Ceftriaxone Sodium 2,000 mg/ (Sodium Chloride) 100 mls @ 200 mls/hr IV Q24H JULISA Stop: 05/24/23 14:01 Last Admin: 05/20/23 14:46 Dose: 200 mls/hr Documented By: SOFIE Isosorbide Mononitrate (Isosorbide Mononitrate Er 30 Mg Tablet) 30 mg PO DAILY [facility] Losartan Potassium (Losartan 25 Mg Tablet) 25 mg PO DAILY [facility] Melatonin (Melatonin 3 Mg Tablet) 6 mg PO BEDTIME PRN PRN Reason: Insomnia Last Admin: 05/20/23 22:03 Dose: 6 mg Documented By: MARE Metoprolol Succinate (Metoprolol Er 50 Mg Tablet) 50 mg PO DAILY [facility] Naloxone HCl (Naloxone 0.4 Mg/Ml Vial) 0.2 mg IV Q2MIN PRN PRN Reason: Opiate Reversal Ondansetron HCl (Ondansetron 4 Mg/2 Ml Inj) 4 mg IV Q8HR PRN PRN Reason: Nausea And Vomiting Polyethylene Glycol (Polyethylene Glycol 3350 17 Gm Powd.Pack) 17 gm PO DAILY PRN PRN Reason: Constipation Sennosides (Sennosides 8.6 Mg Tablet) 8.6 mg PO BID PRN PRN Reason: Constipation Sotalol HCl (Sotalol 80 Mg Tablet) 80 mg PO BID JULISA Last Admin: 05/20/23 21:58 Dose: 80 mg Documented By: MARE Spironolactone (Spironolactone 25 Mg Tablet) 25 mg PO DAILY JULISA Discontinued Medications Furosemide (Furosemide 40 Mg/4 Ml Vial) 40 mg IV NOW ONE Stop: 05/20/23 10:58 Last Admin: 05/20/23 11:42 Dose: 40 mg Documented By: MIS Phytonadione (Phytonadione (Vit K1) 5 Mg Tablet) 5 mg PO NOW ONE Stop: 05/20/23 13:57 Last Admin: 05/20/23 14:45 Dose: 5 mg Documented By: SOFIE Vital Signs Vital signs: Vital Signs - 8 hr 05/20/23 10:41 05/20/23 10:42 05/20/23 10:45 Temperature 97.7 F Pulse Rate 79 78 Respiratory Rate 18 Blood Pressure 165/77 H 165/77 H Pulse Oximetry 90 L 92 Oxygen Delivery Method Room Air Oxygen Flow Rate 05/20/23 11:00 05/20/23 11:01 05/20/23 11:01 Temperature Pulse Rate 76 75 Respiratory Rate 20 20 Blood Pressure 129/58 L Pulse Oximetry 89 L 91 Oxygen Delivery Method Room Air Oxygen Flow Rate 05/20/23 11:30 05/20/23 11:49 05/20/23 11:49 Temperature Pulse Rate 74 73 Respiratory Rate 43 H 24 Blood Pressure 110/55 L Pulse Oximetry 90 L 88 L Oxygen Delivery Method Nasal Cannula Oxygen Flow Rate 2 05/20/23 11:50 05/20/23 12:00 05/20/23 12:00 Temperature Pulse Rate 74 73 Respiratory Rate 24 34 H Blood Pressure 111/56 L Pulse Oximetry 90 L 95 Oxygen Delivery Method Oxygen Flow Rate 05/20/23 12:10 05/20/23 12:20 05/20/23 12:30 Temperature Pulse Rate 77 85 90 Respiratory Rate 32 H 35 H 40 H Blood Pressure Pulse Oximetry 97 Oxygen Delivery Method Oxygen Flow Rate 05/20/23 12:34 05/20/23 12:34 05/20/23 12:40 Temperature Pulse Rate 85 80 Respiratory Rate 35 H 53 H Blood Pressure 128/72 Pulse Oximetry 94 98 Oxygen Delivery Method Oxygen Flow Rate 05/20/23 12:50 Temperature Pulse Rate 78 Respiratory Rate 24 Blood Pressure Pulse Oximetry 96 Oxygen Delivery Method Oxygen Flow Rate MDM - SOB/Dyspnea Lab Data 05/21/23 04:25 05/21/23 04:25 Labs: Lab Results 05/20/23 Range/Units 10:40 WBC 9.3 (4.5-11.0) X10^3/uL RBC 4.60 (4.5-5.9) X10^6/uL Hgb 14.2 (13.5-17.5) g/dL Hct 42.3 (41-53) % MCV 92.1 (80-100) fL MCH 31.0 (26-34) PG MCHC 33.6 (30-36) % RDW 14.0 (11.6-14.8) % Plt Count 285 (150-400) X10^3/uL Neut % (Auto) 71.6 (50-75) % Lymph % (Auto) 15.0 L (25-40) % Caroline % (Auto) 10.7 (3-14) % Eos % (Auto) 2.1 (2-4) % Baso % (Auto) 0.6 (0-2) % Neut # (Auto) 6700 (8987-9251) /uL Lymph # (Auto) 1400 (1494-4080) /uL Caroline # (Auto) 1000 H (0-900) /uL Eos # (Auto) 200 (0-450) /uL Baso # (Auto) 100 (0-100) /uL PT 46.8 H (9.4-12.5) SECONDS INR 4.0 H (0.9-1.3) Sodium 138 (137-145) mmol/L Potassium 4.0 (3.4-5.1) mmol/L Chloride 102 (98-107) mmol/L Carbon Dioxide 28 (22-32) mmol/L BUN 24 H (9-20) mg/dL Creatinine 1.26 H (0.66-1.25) mg/dL Estimated GFR 58 L (>60) mL/min BUN/Creatinine Ratio 19.0 (6-22) Glucose 102 (80-110) mg/dL Calcium 9.8 (8.4-10.2) mg/dL Magnesium 1.9 (1.6-2.3) mg/dL Total Bilirubin 1.2 (0.2-1.3) mg/dL AST 32 (17-59) IU/L ALT 33 (<50) IU/L Alkaline Phosphatase 79 (38-126) U/L Total Creatine Kinase 48 L (55-170) U/L Troponin I 0.015 (0.01-0.034) ng/mL NT-Pro-B Natriuret Pep 1190 H (<450) pg/mL Total Protein 8.1 (6.3-8.2) g/dL Albumin 4.4 (3.5-5.0) g/dL Globulin 3.7 (1.7-4.1) g/dL Albumin/Globulin Ratio 1.2 (1.0-2.8) MDM Narrative Medical decision making narrative: Chronically unwell appearing patient presenting for chronic shortness of breath that has worsened in recent time frame. EMS reported that patient's room oxygen saturations were in the upper 90s, however in the emergency department he is saturating closer to 88-90% on room air. Placed on nasal cannula for improved oxygenation. Laboratory work is reviewed, CBCs unremarkable, chemistries significant for mild increase in creatinine compared to prior, with an increase 0.2 mg per mg/dL. Chest x-ray interpreted as stable compared to prior 12 days ago, with an interstitial prominence reported to be chronic and clear lungs. Since patient was hypoxic with an abnormal sounding lung exam we will order CT chest for further evaluation. CT of the chest shows a moderate left-sided pleural effusion as well as extensive fibrosis. IV Lasix ordered for diuresis. Patient is still requiring supplemental oxygen. He does not wear oxygen at home. We will admit for further evaluation and treatment. Discharge Plan Departure Patient Disposition: Admitted As Inpatient Clinical Impression: Acute hypoxemic respiratory failure, Pleural effusion, Pulmonary fibrosis Admit Date/Time: 05/20/23 12:53 Admit Provider: Sreekanth Middleton
[2023-05-20 11:00] LABS: Prothrombin Time 46.8 SECONDS (9.4-12.5)
[2023-05-20 11:06] LABS: Alanine Aminotransferase 33 IU/L (<50); Albumin 4.4 g/dL (3.5-5.0); Albumin Globulin Ratio 1.2 (1.0-2.8); Alkaline Phosphatase 79 U/L (38-126); Aspartate Aminotransferase 32 IU/L (17-59); Bilirubin Total 1.2 mg/dL (0.2-1.3); Blood Urea Nitrogen 24 mg/dL (9-20); Calcium 9.8 mg/dL (8.4-10.2); Carbon Dioxide 28 mmol/L (22-32); Chloride 102 mmol/L (98-107); Creatine Kinase 48 U/L (55-170); Estimated Glomerular Filt Rate 58 mL/min (>60); Globulin 3.7 g/dL (1.7-4.1); Glucose 102 mg/dL (80-110); HEMOLYSIS < 15 (0-50); Sodium 138 mmol/L (137-145); Total Protein 8.1 g/dL (6.3-8.2)
[2023-05-20 11:18] LABS: NT-proBNP (BNP-Adult 18+) 1190 pg/mL (<450); Troponin I 0.015 ng/mL (0.01-0.034)
[2023-05-20] MEDS: FUROSEMIDE 40 MG/4 ML VIAL IV (11:42)
--- NOTE | 2023-05-20 11:47 | DI.CT.S_ITS ---
PROCEDURE: CT CHEST WO CON INDICATIONS: dyspnea, abnormal lung exam TECHNIQUE: Noncontrast 5 mm thick sections acquired from the pulmonary apices to the posterior costophrenic angles. 1 mm lung window, 5 mm thick coronal and sagittal and 7 mm axial MIP reformats were then acquired. For radiation dose reduction, the following was used: automated exposure control, adjustment of mA and/or kV according to patient size. COMPARISON: None. FINDINGS: Image quality: Excellent. Lungs and pleura: The lungs demonstrate septal thickening with areas of honeycombing consistent with fibrosis. There is a masslike opacity in the left upper lobe anteriorly with adjacent adenopathy in the left superior hilum and left mediastinum. Moderate-sized left pleural effusion. Pneumothorax. Central and peripheral airways are patent and normal in caliber. Mediastinum: Heart size is normal. The coronary arteries have atherosclerotic calcifications. No pericardial effusion. No mediastinal adenopathy by size criteria. The thoracic aorta has atherosclerotic calcifications with a normal caliber. Esophagus is normal in caliber. No hiatal hernia. Bones and chest wall: No suspicious bony lesions. No vertebral body compression fractures. No axillary or supraclavicular adenopathy by size criteria. Thyroid gland is normal. Abdomen: Limited visualization of the upper abdomen shows no acute abnormality. IMPRESSION: 1. Irregular masslike opacity in the left upper lobe anteriorly measuring 4.2 x 4.3 cm axial dimension with adjacent adenopathy in the left hilum and left mediastinum, concerning for neoplasm.. 2. Fibrosis with septal thickening with areas of honeycombing. Dictated by: Sang Ahn M.D. on 05/20/2023 at 11:32 Approved by: Sang Ahn M.D. on 05/20/2023 at 11:38
[2023-05-20 14:24] LABS: Magnesium 1.9 mg/dL (1.6-2.3)
[2023-05-20] MEDS: DOXYCYCLINE HYCLATE 100 MG TABLET PO ×2 (14:45→21:58)
[2023-05-20] MEDS: PHYTONADIONE (VIT K1) 5 MG TABLET PO (14:45)
[2023-05-20] MEDS: cefTRIAXone 2,000 MG in SODIUM CHLORIDE 0.9% 100 ML 200 MG IV (14:46)
--- NOTE | 2023-05-20 14:55 | P.HP_ITS ---
History of Present Illness History of Present Illness Date Patient Seen: 05/20/23 Time Patient Seen: 14:55 Chief complaint: Diff. breathing Narrative: Madison Murillo is an 78yo M with PMH of HFrEF 30-35%, A-fib on sotalol/warfarin, CAD s/p CABG x4, pacemaker, NATHALIE, HTN, HLD, and SOFIE s/p entarterectomy who presents with worsening exertional dyspnea. Patient is accompanied by his son. He states he has become progressively SOB for a several months. He now cannot even walk across a room without becoming severely dyspneic. He notes his twin brother was diagnosed with pulmonary fibrosis about 5 years ago and is currently being treated with pirfenidone and is on 3L NC chronically. Presented to PCP about 2 weeks ago with cough, congestion, rhinorrhea and myalgias and was diagnosed with PNA by PCP and completed a Z-nuha but is still very SOB. In the ED found to be satting 88% on room air so put on 4L NC. He denies fever/chills, NV, abd pain or diarrhea. [facility] Medical History (Updated 05/20/23 @ 15:30 by Shital Tafoya MD) Positive FIT (fecal immunochemical test) Normocytic anemia Chronic pain of both shoulders Cranial somatic dysfunction Cervical somatic dysfunction Neck stiffness Actinic keratoses Excessive cerumen in both ear canals Right medial knee pain Insomnia secondary to chronic pain Chronic neck pain Chicken pox (1975) Measles Mumps Ankle pain (2016) Foot pain Shoulder pain Sleep apnea (~1999) Colon polyps Kidney stones Hearing loss Cardiac arrhythmia (~2014) Cardiac tumor (~2001) Pacemaker (1998) Atrial fibrillation Coronary artery disease (1998) Hypertension Hyperlipidemia Surgical History History of right-sided carotid endarterectomy (~09/2010) AICD (automatic cardioverter/defibrillator) present (12/29/15) History of colonoscopy with polypectomy (07/08/14) History of colonoscopy with polypectomy (05/24/09) Status post carotid surgery (1998) Anesthesia Status post cardiac surgery (~2001) S/P CABG (coronary artery bypass graft) (1998) Status post placement of cardiac pacemaker (~2001) Family History Brother Age: 79 Heart disease Child Liver failure Father Heart disease Grandfather Heart disease Mother MS (multiple sclerosis) Grandmother No problems noted. Sister Stomach cancer Sister Heart disease Social History Smoking Status: Former smoker Meds Home Medications and Allergies Home Medications Medication Instructions Recorded Confirmed Type isosorbide dinitrate 30 mg tablet 30 mg PO DAILY ##0 09/15/11 05/20/23 History spironolactone 25 mg tablet 25 mg PO QDAY ##0 09/15/11 05/20/23 History losartan 25 mg tablet 25 mg PO QDAY ##0 06/02/12 05/20/23 History metoprolol succinate 50 mg 50 mg PO DAILY 09/23/18 05/20/23 History tablet,extended release 24 hr sotalol 80 mg tablet 80 mg PO BID 09/23/18 05/20/23 History aspirin 81 mg tablet,delayed 81 mg PO DAILY 10/06/18 05/20/23 History release (Adult Aspirin Regimen) atorvastatin 40 mg tablet 40 mg PO DAILY #90 tabs 03/21/23 05/20/23 Rx Asmanex HFA 200 mcg/actuation 1 puff inhalation BID #13 grams 05/08/23 05/20/23 Rx aerosol inhaler (mometasone) inhalational spacing device #1 ea 05/08/23 05/20/23 Rx (BreatheRite MDI Spacer) albuterol sulfate 90 mcg/actuation 2 puff inhalation Q6H PRN 05/19/23 05/20/23 Rx aerosol inhaler shortness of breath or wheezing #8.5 grams warfarin 2.5 mg tablet 2.5 mg PO .COMPLEX #100 tabs 05/20/23 Rx Allergies Allergy/AdvReac Type Severity Reaction Status Date / Time adhesive Allergy Mild BLISTERS Verified 05/19/23 08:44 AND RASH lisinopril AdvReac Mild COUGH Verified 05/19/23 08:44 Review of Systems Review of Systems Narrative: All other systems reviewed with the patient and are negative unless otherwise stated. Exam Vital Signs (past 8 hours): - 05/20/23 10:41 05/20/23 10:42 05/20/23 10:45 Temperature 97.7 F Pulse Rate 79 78 Respiratory Rate 18 Blood Pressure 165/77 H 165/77 H Pulse Oximetry 90 L 92 Oxygen Delivery Method Room Air Oxygen Flow Rate 05/20/23 11:00 05/20/23 11:01 05/20/23 11:01 Temperature Pulse Rate 76 75 Respiratory Rate 20 20 Blood Pressure 129/58 L Pulse Oximetry 89 L 91 Oxygen Delivery Method Room Air Oxygen Flow Rate 05/20/23 11:30 05/20/23 11:49 05/20/23 11:49 Temperature Pulse Rate 74 73 Respiratory Rate 43 H 24 Blood Pressure 110/55 L Pulse Oximetry 90 L 88 L Oxygen Delivery Method Nasal Cannula Oxygen Flow Rate 2 05/20/23 11:50 05/20/23 12:00 05/20/23 12:00 Temperature Pulse Rate 74 73 Respiratory Rate 24 34 H Blood Pressure 111/56 L Pulse Oximetry 90 L 95 Oxygen Delivery Method Oxygen Flow Rate 05/20/23 12:10 05/20/23 12:20 05/20/23 12:30 Temperature Pulse Rate 77 85 90 Respiratory Rate 32 H 35 H 40 H Blood Pressure Pulse Oximetry 97 Oxygen Delivery Method Oxygen Flow Rate 05/20/23 12:34 05/20/23 12:34 05/20/23 12:40 Temperature Pulse Rate 85 80 Respiratory Rate 35 H 53 H Blood Pressure 128/72 Pulse Oximetry 94 98 Oxygen Delivery Method Oxygen Flow Rate 05/20/23 12:50 05/20/23 13:00 05/20/23 13:00 Temperature Pulse Rate 78 79 Respiratory Rate 24 28 H Blood Pressure 130/63 Pulse Oximetry 96 96 Oxygen Delivery Method Oxygen Flow Rate 05/20/23 13:10 05/20/23 13:30 05/20/23 13:30 Temperature Pulse Rate 79 Respiratory Rate 24 Blood Pressure Pulse Oximetry 95 95 95 Oxygen Delivery Method Nasal Cannula Nasal Cannula Oxygen Flow Rate 2 2 Oxygen Delivery Method Nasal Cannula Oxygen Flow Rate 2 Narrative Exam Narrative: GEN: no acute distress, on O2 HEENT: moist mucous membranes, PERRL NECK: trachea midline, no JVD CV: regular rate and rhythm, no murmurs PULM: diffuse fine crackles worse at bases ABD: soft, nontender, nondistended, no organomegaly EXT: warm and well perfused with no edema NEURO: awake, alert, oriented, no focal deficits Objective Labs 05/20/23 10:40 05/20/23 10:40 Labs: Laboratory Results - last 24 hr 05/20/23 10:40 WBC 9.3 RBC 4.60 Hgb 14.2 Hct 42.3 MCV 92.1 MCH 31.0 MCHC 33.6 RDW 14.0 Plt Count 285 Neut % (Auto) 71.6 Lymph % (Auto) 15.0 L Pender % (Auto) 10.7 Eos % (Auto) 2.1 Baso % (Auto) 0.6 Neut # (Auto) 6700 Lymph # (Auto) 1400 Pender # (Auto) 1000 H Eos # (Auto) 200 Baso # (Auto) 100 PT 46.8 H INR 4.0 H Sodium 138 Potassium 4.0 Chloride 102 Carbon Dioxide 28 BUN 24 H Creatinine 1.26 H Estimated GFR 58 L BUN/Creatinine Ratio 19.0 Glucose 102 Calcium 9.8 Magnesium 1.9 Total Bilirubin 1.2 AST 32 ALT 33 Alkaline Phosphatase 79 Total Creatine Kinase 48 L Troponin I 0.015 NT-Pro-B Natriuret Pep 1190 H Total Protein 8.1 Albumin 4.4 Globulin 3.7 Albumin/Globulin Ratio 1.2 Assessment & Plan Assessment & Plan narrative: # possible new-onset pulmonary fibrosis -CT chest with multiple air bronchograms, honeycombing, fibrotic changes and masslike density of PRICE -spoke personally with Dr. Das pulmonary who will consult, rec IV abx, thoracentesis and repeat CT in 3-4 weeks -given Vit K to lower INR for thora, currently 4 -rocephin and doxy -sputum culture if able - # acute hypoxic resp failure -likely due to PF -wean O2 as able -may need chronic home O2 # HFrEF of 30-35% -effusions present on CT chest, but no pulm edema and euvolemic on exam -given IV lasix in ED -appears euvolemic on exam, will hold further diuresis -continue BB, imdur, losartan and aldactone # paroxysmal A-fib -continue sotalol -hold warfarin # CAD s/p CABG x4 -continue aspirin # HTN -continue losartan # HLD -continue lipitor Code status is Full code. DVT prophylaxis with warfarin. Proxy is carter Lugo. I have reviewed home meds and used all available resources to reconcile the home meds. Case discussed with ED physician/APC and patient will be admitted to the hospitalist service for further workup and management. This patient will be admitted as inpatient and will require greater than 2 midnights of hospital time to treat acute hypoxic resp failure and PF workup.
[2023-05-20 16:19] LABS: Adenovirus Not Detected (Not Detect); B. parapertussis Not Detected (Not Detecte); Bordetella pertussis Not Detected (Not Detect); Chlamydophila pneumoniae Not Detected (Not Detect); Coronavirus 229E Not Detected (Not Detect); Coronavirus HKU1 Not Detected (Not Detect); Coronavirus NL 63 Not Detected (Not Detect); Coronavirus OC43 Not Detected (Not Detect); Human Metapneumovirus Not Detected (Not Detect); Human Rhinovirus/Enterovirus Not Detected (Not Detect); Influenza A Not Detected (Not Detect); Influenza B Not Detected (Not Detect); Mycoplasma pneumoniae Not Detected (Not Detect); Parainfluenza Virus 1 Not Detected (Not Detect); Parainfluenza Virus 2 Not Detected (Not Detect); Parainfluenza Virus 3 Not Detected (Not Detect); Parainfluenza Virus 4 Not Detected (Not Detect); Respiratory Syncytial Virus Not Detected (Not Detect); SARS- CoV-2 Not Detected (Not Detecte)
--- NOTE | 2023-05-20 16:27 | PM.HP.1 ---
History of Present Illness History of Present Illness Date Patient Seen: 05/20/23 Chief complaint: Diff. breathing Narrative: Pulmonary consult note ID AND CHIEF COMPLAINT: Mr. Murillo is an 78-year-old remotely former smoker with a history of coronary disease, coronary artery bypass grafting x4, sick sinus syndrome, pacemaker placement, heart failure with reduced ejection fraction (EF 30-35%), atrial fibrillation, and anticoagulation with warfarin admitted to the medical hospitalist team with acute respiratory failure with hypoxemia, pneumonia, pleural effusion and possible lung mass for whom Dr. Middleton as requested consultation and evaluation of patient's acute respiratory failure, finding of interstitial lung disease as well as possible lung mass and pleural effusion. Case discussed with Dr. Middleton inpatient interviewed. At the time that I saw the patient he had been rimmed into to 225-1. Mr. Murillo tells me that about a year ago, he started noticing he was more short of breath with even at times minimal activity such as walking from room to room. This would come and go a little bit but much worse in the last few months and then in the last 1 month ?it got to where I could not do anything?, referring to severe shortness breath where he had to stop and catch his breath frequently even with activities of daily living. He does have a pulse oximeter and would notice that as opposed to what he considered normal 94-95% in the past, if he walked, he would go down to the low 80%. He had weakness but denies very much of cough and had no sputum production, no fever. He did present with cough (minimized cough to me) and congestion about 10 days ago, diagnosed with acute bronchitis. Chest x-ray which I reviewed from that day does show bilateral interstitial prominence no evident large area of airspace disease, no large effusion. A chest x-ray in 2018 has suggestion of some interstitial changes but there was no prior court. He presented today with worsening weakness and shortness of breath. He had SpO2 88% on air, improved to 94% on 2-3 liters/minute. CT chest which I personally reviewed shows left masslike but consolidative opacity with a few air bronchograms anterior upper lobe, perihilar masslike opacity or adenopathy, small-moderate left pleural effusion with atelectasis. He is admitted to the medical hospitalist team, on 3 liters/minute he is satting 95%, looks relatively comfortable while seated. On review with him, he otherwise reports no knowledge of having lung disease and never having a chronic cough or sputum expectoration. He is not had PFT. He is never used inhaled therapies. Confirms for me he quit smoking about 35 years ago but smoked from the time he was a kid until then, about 20-25 pack-year total. He had multiple different jobs, most of them administrative, no sustained daily exposure to particulate, industrial grade silicosis, fumes, etc. [facility] Medical History (Updated 05/20/23 @ 16:50 by Joselito Das MD) Positive FIT (fecal immunochemical test) Normocytic anemia Chronic pain of both shoulders Cranial somatic dysfunction Cervical somatic dysfunction Neck stiffness Actinic keratoses Excessive cerumen in both ear canals Right medial knee pain Insomnia secondary to chronic pain Chronic neck pain Chicken pox (1975) Measles Mumps Ankle pain (2016) Foot pain Shoulder pain Sleep apnea (~1999) Colon polyps Kidney stones Hearing loss Cardiac arrhythmia (~2014) Cardiac tumor (~2001) Pacemaker (1998) Atrial fibrillation Coronary artery disease (1998) Hypertension Hyperlipidemia Surgical History History of right-sided carotid endarterectomy (~09/2010) AICD (automatic cardioverter/defibrillator) present (12/29/15) History of colonoscopy with polypectomy (07/08/14) History of colonoscopy with polypectomy (05/24/09) Status post carotid surgery (1998) Anesthesia Status post cardiac surgery (~2001) S/P CABG (coronary artery bypass graft) (1998) Status post placement of cardiac pacemaker (~2001) Family History Brother Age: 79 Heart disease Child Liver failure Father Heart disease Grandfather Heart disease Mother MS (multiple sclerosis) Grandmother No problems noted. Sister Stomach cancer Sister Heart disease Social History household members: none Smoking Status: Former smoker alcohol intake: never Meds Home Medications and Allergies Home Medications Medication Instructions Recorded Confirmed Type isosorbide dinitrate 30 mg tablet 30 mg PO DAILY ##0 09/15/11 05/20/23 History spironolactone 25 mg tablet 25 mg PO QDAY ##0 09/15/11 05/20/23 History losartan 25 mg tablet 25 mg PO QDAY ##0 06/02/12 05/20/23 History metoprolol succinate 50 mg 50 mg PO DAILY 09/23/18 05/20/23 History tablet,extended release 24 hr sotalol 80 mg tablet 80 mg PO BID 09/23/18 05/20/23 History aspirin 81 mg tablet,delayed 81 mg PO DAILY 10/06/18 05/20/23 History release (Adult Aspirin Regimen) atorvastatin 40 mg tablet 40 mg PO DAILY #90 tabs 03/21/23 05/20/23 Rx Asmanex HFA 200 mcg/actuation 1 puff inhalation BID #13 grams 05/08/23 05/20/23 Rx aerosol inhaler (mometasone) inhalational spacing device #1 ea 05/08/23 05/20/23 Rx (BreatheRite MDI Spacer) albuterol sulfate 90 mcg/actuation 2 puff inhalation Q6H PRN 05/19/23 05/20/23 Rx aerosol inhaler shortness of breath or wheezing #8.5 grams warfarin 2.5 mg tablet 2.5 mg PO .COMPLEX #100 tabs 05/20/23 Rx Allergies Allergy/AdvReac Type Severity Reaction Status Date / Time adhesive Allergy Mild BLISTERS Verified 05/19/23 08:44 AND RASH lisinopril AdvReac Mild COUGH Verified 05/19/23 08:44 Exam Vital Signs (past 8 hours): - 05/20/23 10:41 05/20/23 10:42 05/20/23 10:45 Temperature 97.7 F Pulse Rate 79 78 Respiratory Rate 18 Blood Pressure 165/77 H 165/77 H Pulse Oximetry 90 L 92 Oxygen Delivery Method Room Air Oxygen Flow Rate 05/20/23 11:00 05/20/23 11:01 05/20/23 11:01 Temperature Pulse Rate 76 75 Respiratory Rate 20 20 Blood Pressure 129/58 L Pulse Oximetry 89 L 91 Oxygen Delivery Method Room Air Oxygen Flow Rate 05/20/23 11:30 05/20/23 11:49 05/20/23 11:49 Temperature Pulse Rate 74 73 Respiratory Rate 43 H 24 Blood Pressure 110/55 L Pulse Oximetry 90 L 88 L Oxygen Delivery Method Nasal Cannula Oxygen Flow Rate 2 05/20/23 11:50 05/20/23 12:00 05/20/23 12:00 Temperature Pulse Rate 74 73 Respiratory Rate 24 34 H Blood Pressure 111/56 L Pulse Oximetry 90 L 95 Oxygen Delivery Method Oxygen Flow Rate 05/20/23 12:10 05/20/23 12:20 05/20/23 12:30 Temperature Pulse Rate 77 85 90 Respiratory Rate 32 H 35 H 40 H Blood Pressure Pulse Oximetry 97 Oxygen Delivery Method Oxygen Flow Rate 05/20/23 12:34 05/20/23 12:34 05/20/23 12:40 Temperature Pulse Rate 85 80 Respiratory Rate 35 H 53 H Blood Pressure 128/72 Pulse Oximetry 94 98 Oxygen Delivery Method Oxygen Flow Rate 05/20/23 12:50 05/20/23 13:00 05/20/23 13:00 Temperature Pulse Rate 78 79 Respiratory Rate 24 28 H Blood Pressure 130/63 Pulse Oximetry 96 96 Oxygen Delivery Method Oxygen Flow Rate 05/20/23 13:10 05/20/23 13:30 05/20/23 13:30 Temperature Pulse Rate 79 Respiratory Rate 24 Blood Pressure Pulse Oximetry 95 95 95 Oxygen Delivery Method Nasal Cannula Nasal Cannula Oxygen Flow Rate 2 2 05/20/23 14:00 Temperature Pulse Rate Respiratory Rate Blood Pressure Pulse Oximetry 94 Oxygen Delivery Method Nasal Cannula Oxygen Flow Rate 3 Oxygen Delivery Method Nasal Cannula Oxygen Flow Rate 3 Narrative Exam Narrative: Fatigued but breathing with relative comfort while seated in bed and talking Const General: cooperative [facility] Head: normal to inspection Eyes General: appearance normal, both eyes and all related structures Neck Neck: normal visual inspection Chest Chest: normal inspection of the chest Resp Other: No breath sounds far left base, left mid lung short inspiratory crackles, good air movement on the right, no wheezing Cardio Rate: regular rate Extrem General: normal to inspection Other: Lower extremities relatively warm and perfusing, trace edema Psych Appearance: grossly normal Objective Labs 05/20/23 10:40 05/20/23 10:40 Labs: Laboratory Results - last 24 hr 05/20/23 05/20/23 10:40 15:00 WBC 9.3 RBC 4.60 Hgb 14.2 Hct 42.3 MCV 92.1 MCH 31.0 MCHC 33.6 RDW 14.0 Plt Count 285 Neut % (Auto) 71.6 Lymph % (Auto) 15.0 L [place] % (Auto) 10.7 Eos % (Auto) 2.1 Baso % (Auto) 0.6 Neut # (Auto) 6700 Lymph # (Auto) 1400 [place] # (Auto) 1000 H Eos # (Auto) 200 Baso # (Auto) 100 PT 46.8 H INR 4.0 H Sodium 138 Potassium 4.0 Chloride 102 Carbon Dioxide 28 BUN 24 H Creatinine 1.26 H Estimated GFR 58 L BUN/Creatinine Ratio 19.0 Glucose 102 Calcium 9.8 Magnesium 1.9 Total Bilirubin 1.2 AST 32 ALT 33 Alkaline Phosphatase 79 Total Creatine Kinase 48 L Troponin I 0.015 NT-Pro-B Natriuret Pep 1190 H Total Protein 8.1 Albumin 4.4 Globulin 3.7 Albumin/Globulin Ratio 1.2 Chlamy pneumoniae PCR Not detected Adenovirus (PCR) Not detected B.parapertussis DNA PCR Not detected Coronavirus OC43 (PCR) Not detected Coronavirus HKU1 (PCR) Not detected Coronavirus 229E (PCR) Not detected SARS-CoV-2 (PCR) Not detected Coronavirus NL63 (PCR) Not detected Human Metapneumovir PCR Not detected Influenza Type A (PCR) Not detected Influenza Type B (PCR) Not detected M. pneumoniae (PCR) Not detected Parainfluenza 1 (PCR) Not detected Parainfluenza 2 (PCR) Not detected Parainfluenza 3 (PCR) Not detected Parainfluenza 4 (PCR) Not detected RSV (PCR) Not detected Entero/Rhino (PCR) Not detected Assessment & Plan Assessment and plan (1) Acute hypoxemic respiratory failure: Status: Acute Plan: Suspect acute on chronic though overall mild. He will continue supportive care, likely need supplemental oxygen at time of discharge. Plan: -continue supportive for a goal SpO2 90-95% -ambulatory oximetry testing (?6 minute walk ?) prior to discharge for planning on supplemental oxygen continued after discharge -follow-up in Pulmonary Clinic to assess ongoing need (2) Pleural effusion: Status: Acute Plan: Parapneumonic versus secondary to malignancy. Recommend he undergo ultrasound-guided thoracentesis diagnostic and therapeutic. Recommendation: -diagnostic and therapeutic ultrasound-guided thoracentesis, evaluate cell count, differential, LDH, protein, Gram stain and culture, cytology (3) Pulmonary fibrosis: Problem details: Chronic and interestingly maybe familial. Overall territory is mild-moderate any certainly does not have severe progressive fibrotic lung disease. Recommendation: -follow-up in pulmonary clinic to include PFT Status: Acute (4) Lung mass: Status: Acute Plan: Pretty high concern for malignancy given history of smoking, Agent presence of fibrotic lung disease. Given the air bronchograms and question of infectious material, would treat him for community-acquired pneumonia either ceftriaxone and azithromycin or cefepime and discharge on Augmentin to complete a total of 10 days. Will need repeat CT in about 3-4 weeks. I discussed with the patient the prospect that he may need biopsy. Recommendation: -antibiotic therapy, discharge to complete a total of 10 days -repeat CT chest in 3 weeks or so -as above, follow-up with Pulmonary Clinic Thank you very much for the opportunity to evaluate and participate in the care of Mr. Murillo. Please contact me if any questions. Time Spent With Patient Time with patient: 50 to 69 minutes with 50% spent counseling/coordinating care Quality VTE Deep Vein Thrombosis/Pulmonary Embolism Present on Admission: No
[2023-05-20] MEDS: ATORVASTATIN 20 MG TABLET 40 MG PO (21:58)
[2023-05-20] MEDS: SOTALOL 80 MG TABLET PO (21:58)
[2023-05-20] MEDS: MELATONIN 3 MG TABLET 6 MG PO (22:03)
[2023-05-21] VITALS (15 sets, daily range): BP systolic 97–149; BP diastolic 33–65; PULSE 63–85; RESP 16–22; TEMP 35.7–37.2; O2SAT 94–99
[2023-05-21 05:08] LABS: INR 3.1 (0.9-1.3); Prothrombin Time 35.6 SECONDS (9.4-12.5)
[2023-05-21 05:10] LABS: Add Manual Diff / Slide Review NO; Basophils Absolute Auto 100 /uL (0-100); Basophils Percent Auto 0.6 % (0-2); Eosinophils Absolute Auto 300 /uL (0-450); Eosinophils Percent Auto 3.2 % (2-4); Hematocrit 41.4 % (41-53); Hemoglobin 14.1 g/dL (13.5-17.5); Lymphocytes Absolute Auto 1600 /uL (1100-4500); Lymphocytes Percent Auto 16.5 % (25-40); Mean Corpuscular Hemoglobin 31.5 PG (26-34); Mean Corpuscular Volume 92.5 fL (80-100); Monocytes Absolute Auto 1100 /uL (0-900); Monocytes Percent Auto 11.1 % (3-14); Neutrophils Absolute Auto 6500 /uL (1500-7000); Neutrophils Percent Auto 68.6 % (50-75); Platelet Count 285 X10^3/uL (150-400); Red Blood Cell Count 4.47 X10^6/uL (4.5-5.9); Red Cell Distribution Width 13.8 % (11.6-14.8); White Blood Cell Count 9.5 X10^3/uL (4.5-11.0)
[2023-05-21 05:13] LABS: BUN Creatinine Ratio 25.4 (6-22); Blood Urea Nitrogen 33 mg/dL (9-20); Calcium 9.4 mg/dL (8.4-10.2); Carbon Dioxide 29 mmol/L (22-32); Chloride 99 mmol/L (98-107); Estimated Glomerular Filt Rate 56 mL/min (>60); Glucose 100 mg/dL (80-110); HEMOLYSIS < 15 (0-50); Potassium 3.7 mmol/L (3.4-5.1); Sodium 138 mmol/L (137-145)
--- NOTE | 2023-05-21 07:37 | PC.NURSE ---
pt has maintained an o2 sat in the mid 's on 2-3l/nc; he does demonstrate dyspnea on exertion, which causes him to become anxious; he requested a sleep aid and was given melatonin po and he was able to sleep off and on the remainder of the shift; he ambulates steady on his feet, but staff recommended he use the walker since he gets SOB and he agreed
[2023-05-21] MEDS: METOPROLOL ER 50 MG TABLET PO (10:22)
[2023-05-21] MEDS: SPIRONOLACTONE 25 MG TABLET PO (10:23)
[2023-05-21] MEDS: LOSARTAN 25 MG TABLET PO (10:23)
[2023-05-21] MEDS: DOXYCYCLINE HYCLATE 100 MG TABLET PO ×2 (10:23→20:08)
[2023-05-21] MEDS: ISOSORBIDE MONONITRATE ER 30 MG TABLET PO (10:23)
[2023-05-21] MEDS: SODIUM CHLORIDE 0.9% 1,000 ML 100 ML IV (10:27)
[2023-05-21] MEDS: SOTALOL 80 MG TABLET PO ×2 (10:35→20:08)
--- NOTE | 2023-05-21 12:41 | PC.NURSE ---
Fresh thawed plasma given at 1241, scans were overrided due to the FFP being thawed. Exp. date was changed and product number was changed due to the thawing of Frozen plasma.
--- NOTE | 2023-05-21 12:44 | CM.DANOTE ---
DCP: Case received, EMR reviewed and met with patient. Introduced self and role. Was able to obtain information regarding patient's baseline activity status prior to hospitalization, as well as his current living situation. DCP assessment completed with information currently available. Patient is an 78 year old male who admitted yesterday afternoon to the care of the hospitalist team. PCP: Dr. Cruz. Payer: confirmed: [facility]. Patient came to the hospital via ambulance secondary to having shortness of breath. Notes indicate that patient has been short of breath for about 6 months. Patient has been treated for pneumonia last week, is no longer on antibiotics. He was placed on 4 liters of oxygen for comfort. Patient was admitted for acute hypoxemic respiratory failure, pleural effusion, pulmonary fibrosis. Met with patient in his room. He is alert, oxygen in place. Patient does not use any oxygen at his baseline. Confirmed that he resides alone here in [place], and that Dr. Cruz is his current provider. He uses a cane at times, and drives. His son, Parish, was at bedside, and lives in [place]. Has daughters, that will also be here, who don't live in [facility]. P: DCP to follow closely. Will see how he does, does not have any therapy orders as of yet. Will most likely need home oxygen eval per hospitalist, and may benefit with home health services, did briefly mention this to patient and son. Tiffanie Jones RN/Programs Director Discharge Planning/Care Management Advanced directive, confirm from FAMILY Start: 05/20/23 15:08 Freq: Q24H Status: Active Protocol: Document 05/20/23 15:08 SOFIE (Rec: 05/20/23 15:08 SOFIE [id number]) Advance Directive, confirm on record Time 15:08 Person contacted pt Copy received No CM Discharge Assessment Start: 05/21/23 12:42 Freq: Status: Active Protocol: Document 05/21/23 12:42 (Rec: 05/21/23 12:44 [id number]) Discharge Planning Assessment Assigned [place] Blower Tiffanie Jones RN/Programs Director Advance Directives? Yes Advance Directives on File No History Provided By Patient,Medical Record Prior Living Arrangements House Household Members none Type of transporation used prior to Drives own vehicle admit Independent with ADL's Yes Is patient alert and oriented? Yes Caregiver for Another No DME Already Rented / Owned Cane Barriers to Discharge No Comment May need home oxygen and home health. Discharge Plan Home Transportation Arrangement Family Referrals Initiated Other Additional Comment Patient not medically stable as of yet, can look into home health options, does not have any theapy orders as of yet. Whiteboard Updated in Patient Room with Yes name and ext. # of Mold Blower Review Status In Process Next Review Type Continued Stay Review
--- NOTE | 2023-05-21 14:47 | P.PN_ITS ---
Subjective Subjective Interval history: Patient remains on 3L and quite dyspneic with exertion. Will attempt diag/thera thora today and give FFP first due to INR 3.1. Exam Vital Signs (past 8 hours): - 05/20/23 10:41 05/20/23 10:42 05/20/23 10:45 Temperature 97.7 F Pulse Rate 79 78 Respiratory Rate 18 Blood Pressure 165/77 H 165/77 H Pulse Oximetry 90 L 92 Oxygen Delivery Method Room Air Oxygen Flow Rate 05/20/23 11:00 05/20/23 11:01 05/20/23 11:01 Temperature Pulse Rate 76 75 Respiratory Rate 20 20 Blood Pressure 129/58 L Pulse Oximetry 89 L 91 Oxygen Delivery Method Room Air Oxygen Flow Rate 05/20/23 11:30 05/20/23 11:49 05/20/23 11:49 Temperature Pulse Rate 74 73 Respiratory Rate 43 H 24 Blood Pressure 110/55 L Pulse Oximetry 90 L 88 L Oxygen Delivery Method Nasal Cannula Oxygen Flow Rate 2 05/20/23 11:50 05/20/23 12:00 05/20/23 12:00 Temperature Pulse Rate 74 73 Respiratory Rate 24 34 H Blood Pressure 111/56 L Pulse Oximetry 90 L 95 Oxygen Delivery Method Oxygen Flow Rate 05/20/23 12:10 05/20/23 12:20 05/20/23 12:30 Temperature Pulse Rate 77 85 90 Respiratory Rate 32 H 35 H 40 H Blood Pressure Pulse Oximetry 97 Oxygen Delivery Method Oxygen Flow Rate 05/20/23 12:34 05/20/23 12:34 05/20/23 12:40 Temperature Pulse Rate 85 80 Respiratory Rate 35 H 53 H Blood Pressure 128/72 Pulse Oximetry 94 98 Oxygen Delivery Method Oxygen Flow Rate 05/20/23 12:50 05/20/23 13:00 05/20/23 13:00 Temperature Pulse Rate 78 79 Respiratory Rate 24 28 H Blood Pressure 130/63 Pulse Oximetry 96 96 Oxygen Delivery Method Oxygen Flow Rate 05/20/23 13:10 05/20/23 13:30 05/20/23 13:30 Temperature Pulse Rate 79 Respiratory Rate 24 Blood Pressure Pulse Oximetry 95 95 95 Oxygen Delivery Method Nasal Cannula Nasal Cannula Oxygen Flow Rate 2 2 Oxygen Delivery Method Nasal Cannula Oxygen Flow Rate 2 Narrative Exam Narrative: GEN: no acute distress, on O2 HEENT: moist mucous membranes, PERRL NECK: trachea midline, no JVD CV: regular rate and rhythm, no murmurs PULM: diffuse fine crackles worse at bases ABD: soft, nontender, nondistended, no organomegaly EXT: warm and well perfused with no edema NEURO: awake, alert, oriented, no focal deficits Objective Labs 05/21/23 04:25 05/21/23 04:25 Labs: Laboratory Results - last 24 hr 05/20/23 05/21/23 05/21/23 15:00 04:25 10:43 WBC 9.5 RBC 4.47 L Hgb 14.1 Hct 41.4 MCV 92.5 MCH 31.5 MCHC 34.0 RDW 13.8 Plt Count 285 Neut % (Auto) 68.6 Lymph % (Auto) 16.5 L [place] % (Auto) 11.1 Eos % (Auto) 3.2 Baso % (Auto) 0.6 Neut # (Auto) 6500 Lymph # (Auto) 1600 [place] # (Auto) 1100 H Eos # (Auto) 300 Baso # (Auto) 100 PT 35.6 H D INR 3.1 H Sodium 138 Potassium 3.7 Chloride 99 Carbon Dioxide 29 BUN 33 H Creatinine 1.30 H Estimated GFR 56 L BUN/Creatinine Ratio 25.4 H Glucose 100 Calcium 9.4 Chlamy pneumoniae PCR Not detected Adenovirus (PCR) Not detected B.parapertussis DNA PCR Not detected Coronavirus OC43 (PCR) Not detected Coronavirus HKU1 (PCR) Not detected Coronavirus 229E (PCR) Not detected SARS-CoV-2 (PCR) Not detected Coronavirus NL63 (PCR) Not detected Human Metapneumovir PCR Not detected Influenza Type A (PCR) Not detected Influenza Type B (PCR) Not detected M. pneumoniae (PCR) Not detected Parainfluenza 1 (PCR) Not detected Parainfluenza 2 (PCR) Not detected Parainfluenza 3 (PCR) Not detected Parainfluenza 4 (PCR) Not detected RSV (PCR) Not detected Entero/Rhino (PCR) Not detected Blood Type B Positive [facility] Medical History (Updated 05/20/23 @ 16:50 by Joselito Das MD) Positive FIT (fecal immunochemical test) Normocytic anemia Chronic pain of both shoulders Cranial somatic dysfunction Cervical somatic dysfunction Neck stiffness Actinic keratoses Excessive cerumen in both ear canals Right medial knee pain Insomnia secondary to chronic pain Chronic neck pain Chicken pox (1975) Measles Mumps Ankle pain (2017) Foot pain Shoulder pain Sleep apnea (~1999) Colon polyps Kidney stones Hearing loss Cardiac arrhythmia (~2014) Cardiac tumor (~2001) Pacemaker (1998) Atrial fibrillation Coronary artery disease (1998) Hypertension Hyperlipidemia Surgical History History of right-sided carotid endarterectomy (~09/2010) AICD (automatic cardioverter/defibrillator) present (12/29/15) History of colonoscopy with polypectomy (07/08/14) History of colonoscopy with polypectomy (05/24/09) Status post carotid surgery (1998) Anesthesia Status post cardiac surgery (~2001) S/P CABG (coronary artery bypass graft) (1998) Status post placement of cardiac pacemaker (~2001) Family History Brother Age: 79 Heart disease Child Liver failure Father Heart disease Grandfather Heart disease Mother MS (multiple sclerosis) Grandmother No problems noted. Sister Stomach cancer Sister Heart disease Social History household members: none Smoking Status: Former smoker alcohol intake: never Assessment & Plan Assessment & Plan narrative: # possible new-onset pulmonary fibrosis and/or lung cancer -CT chest with multiple air bronchograms, honeycombing, fibrotic changes and masslike density of PRICE. Adenopathy on CT and mass concerning for lung cancer per pulm -spoke personally with Dr. Das pulmonary who will consult, rec IV abx, thoracentesis and repeat CT in 3-4 weeks -given Vit K to lower INR for thora, initially 4 -rocephin and doxy -will attempt L-sided thora today to obtain studies and help improve breathing, give FFP first due to INR still 3.1 -will obtain home O2 eval prior to dc and pt will likely need home oxygen # acute hypoxic resp failure -likely due to PF and possible PNA -wean O2 as able -may need chronic home O2 # HFrEF of 30-35% -effusions present on CT chest, but no pulm edema and euvolemic on exam -given IV lasix in ED -appears euvolemic on exam, will hold further diuresis -continue BB, imdur and aldactone -holding losartan due to soft BP # paroxysmal A-fib -continue sotalol -hold warfarin # CAD s/p CABG x4 -continue aspirin # HTN -holding losartan # HLD -continue lipitor Code status is Full code. DVT prophylaxis with warfarin. Proxy is son Parish. I have reviewed home meds and used all available resources to reconcile the home meds. Dispo: Home in 1-2 days likely. Quality VTE Deep Vein Thrombosis/Pulmonary Embolism Present on Admission: No
[2023-05-21] MEDS: cefTRIAXone 2,000 MG in SODIUM CHLORIDE 0.9% 100 ML 200 MG IV (15:15)
[2023-05-21] MEDS: SODIUM CHLORIDE 0.9% 500 ML IV (15:18)
--- NOTE | 2023-05-21 17:00 | PM.PROC.1 ---
Procedures Date/Time Date of procedure: 05/21/23 Time of procedure: 17:00 General Procedure description: Thoracentesis Procedure Note Prior to the procedure formal consent was obtained from the patient after discussion of risks and benefits of the procedure, and allowing the patient to ask any questions. Ultrasound was used to find safe entry site, and the site was marked. A time-out was performed. The site was then prepped and draped in usual sterile fashion, and a 16 gauge needle was inserted with return of bloody fluid. Approx 60mL of fluid was sent to the lab for testing. A total of approximately 1.1L was obtained before drainage stopped. There was no bleeding and the patient tolerated the procedure well. There were no further complications. Chest X-ray showed no pneumothorax. Sreekanth Middleton DO
--- NOTE | 2023-05-21 18:05 | DI.RAD.S_ITS ---
PROCEDURE: XR CHEST 1V INDICATIONS: post L thoracentesis TECHNIQUE: One view of the chest was acquired. COMPARISON: [facility], CR, XR CHEST 1V, 05/20/2023, 10:53. [facility], CR, XR CHEST 2V, 05/08/2023, 12:27. FINDINGS: Surgical changes and devices: Sternotomy. Left chest wall generator with intravenous leads. Lungs and pleura: Small left pleural effusion with left basilar atelectasis. Similar perihilar airspace opacities. Mediastinum: Mediastinal contours appear normal. Heart size is normal. Bones and chest wall: No suspicious bony lesions. Overlying soft tissues appear unremarkable. IMPRESSION: Small left pleural effusion. No pneumothorax. Similar perihilar airspace opacities, possibly pulmonary edema. Dictated by: Nicho Mcknight M.D. on 05/21/2023 at 18:37 Approved by: Nicho Mcknight M.D. on 05/21/2023 at 18:38
[2023-05-21] MEDS: ATORVASTATIN 20 MG TABLET 40 MG PO (20:08)
[2023-05-22] VITALS (7 sets, daily range): BP systolic 105–156; BP diastolic 50–70; PULSE 64–79; RESP 18–20; TEMP 35.9–36.5; O2SAT 96–100
[2023-05-22 04:51] LABS: Add Manual Diff / Slide Review NO; Basophils Absolute Auto 0 /uL (0-100); Basophils Percent Auto 0.5 % (0-2); Eosinophils Absolute Auto 300 /uL (0-450); Eosinophils Percent Auto 4.1 % (2-4); Hematocrit 37.2 % (41-53); Hemoglobin 12.6 g/dL (13.5-17.5); Lymphocytes Absolute Auto 1600 /uL (1100-4500); Lymphocytes Percent Auto 19.8 % (25-40); Mean Corpuscular HGB Conc 33.8 % (30-36); Mean Corpuscular Hemoglobin 31.2 PG (26-34); Mean Corpuscular Volume 92.3 fL (80-100); Monocytes Absolute Auto 800 /uL (0-900); Monocytes Percent Auto 10.4 % (3-14); Neutrophils Absolute Auto 5200 /uL (1500-7000); Neutrophils Percent Auto 65.2 % (50-75); Platelet Count 251 X10^3/uL (150-400); Red Blood Cell Count 4.03 X10^6/uL (4.5-5.9); Red Cell Distribution Width 14.1 % (11.6-14.8); White Blood Cell Count 8.1 X10^3/uL (4.5-11.0)
[2023-05-22 05:02] LABS: INR 1.9 (0.9-1.3); Prothrombin Time 21.4 SECONDS (9.4-12.5)
[2023-05-22 05:06] LABS: BUN Creatinine Ratio 25.5 (6-22); Blood Urea Nitrogen 26 mg/dL (9-20); Calcium 8.8 mg/dL (8.4-10.2); Carbon Dioxide 30 mmol/L (22-32); Chloride 101 mmol/L (98-107); Estimated Glomerular Filt Rate > 60 mL/min (>60); Glucose 93 mg/dL (80-110); HEMOLYSIS 19 (0-50); Potassium 3.8 mmol/L (3.4-5.1); Sodium 135 mmol/L (137-145)
[2023-05-22] MEDS: ASPIRIN EC 81 MG TABLET PO (09:47)
[2023-05-22] MEDS: SPIRONOLACTONE 25 MG TABLET PO (09:47)
[2023-05-22] MEDS: METOPROLOL ER 50 MG TABLET PO (09:47)
[2023-05-22] MEDS: LORATADINE 10 MG TABLET PO (09:47)
[2023-05-22] MEDS: DOXYCYCLINE HYCLATE 100 MG TABLET PO (09:47)
[2023-05-22] MEDS: ISOSORBIDE MONONITRATE ER 30 MG TABLET PO (09:47)
[2023-05-22] MEDS: SOTALOL 80 MG TABLET PO (09:47)
[2023-05-22] MEDS: cefTRIAXone 2,000 MG in SODIUM CHLORIDE 0.9% 100 ML 200 MG IV (09:48)
--- NOTE | 2023-05-22 12:32 | P.DS_ITS ---
History of Present Illness History of Present Illness Chief complaint: Diff. breathing Narrative: Madison Murillo is an 78yo M with PMH of HFrEF 30-35%, A-fib on sotalol/warfarin, CAD s/p CABG x4, pacemaker, NATHALIE, HTN, HLD, and SOFIE s/p entarterectomy who presents with worsening exertional dyspnea. Patient is accompanied by his son. He states he has become progressively SOB for a several months. He now cannot even walk across a room without becoming severely dyspneic. He notes his twin brother was diagnosed with pulmonary fibrosis about 5 years ago and is currently being treated with pirfenidone and is on 3L NC chronically. Presented to PCP about 2 weeks ago with cough, congestion, rhinorrhea and myalgias and was diagnosed with PNA by PCP and completed a Z-nuha but is still very SOB. In the ED found to be satting 88% on room air so put on 4L NC. He denies fever/chills, NV, abd pain or diarrhea. Discharge Providers Provider Date of admission: 05/20/23 12:53 Discharge Date: 05/22/23 Primary care physician: Jason Cruz DO Consults: 05/20/23 14:06 Consult to Pulmonology Routine Comment: Consulting Provider: [facility] Reason for consultation: possible PF vs PNA Has provider been notified: Yes 05/22/23 10:43 Consult to Home Health Routine Comment: Reason For Exam: Home Health director of workforce development provider: Sreekanth Middleton DO Summary Hospital Course Discharge Diagnosis: # possible new-onset pulmonary fibrosis and/or lung cancer vs atypical infection -CT chest with multiple air bronchograms, honeycombing, fibrotic changes and masslike density of PRICE. Adenopathy on CT and mass concerning for lung cancer per pulm. -pt has twin brother diagnosed with PF 5 years ago at age 75 and on pirfenidone and 3L NC chronically -spoke personally with Dr. Thiago bethea who consulted, rec IV abx, diag/therap thoracentesis and repeat CT in 3-4 weeks -given Vit K to lower INR for thora, initially 4. Then FFP for thora. -rocephin and doxy ordered -drained off 1.1L of bloody fluid from L side with thora on 05/21, unfortunately fluid sample got lost before reaching the lab so no pleural fluid studies done -patient discharged on doxy x2 more days to complete 5 days and augmentin x7 days to complete 10 days -will f/up in pulm clinic for possible biopsy and repeat CT imaging # acute hypoxic resp failure -likely due to PF and possible PNA or lung cancer -wean O2 as able -home O2 eval showed needs 2L at rest and 3-4L with exertion -sent home with supp O2 # HFrEF of 30-35% -effusions present on CT chest, but no pulm edema and euvolemic on exam -given IV lasix in ED -appears euvolemic on exam, will hold further diuresis -continue BB, imdur and aldactone -holding losartan due to soft BP # paroxysmal A-fib -continue sotalol -hold warfarin # CAD s/p CABG x4 -continue aspirin # HTN -holding losartan # HLD -continue lipitor Hospital Course: Admitted for 6 months of SOB which then suddenly worsened over [address] chest found to have diffuse PF and honeycombing with mass-like opacity in PRICE. Concern for lung cancer vs atypical infection in the setting of PF. Pulm consulted and rec IV abx, thora and repeat CT in 3-4 weeks. Thora done which drained 1.1L off L side of bloody fluid. Unfortunately the fluid was lost en route to the lab and nobody could locate it so no pleural fluid studies done. Patient's SOB much improved after thora with exertion, but still req 2L at rest and 3-4L with exertion. Sent home with supp O2, po abx and referral sent to pulm clinic for appt in [address] chest in 3-4 weeks. Exam Vital Signs (past 8 hours): - 05/22/23 06:00 05/22/23 08:00 05/22/23 09:47 Temperature 96.6 F L Pulse Rate 70 Respiratory Rate 20 Blood Pressure 156/65 H 121/70 Pulse Oximetry 96 99 Oxygen Delivery Method Simple Mask Oxygen Flow Rate 3 3 05/22/23 12:00 Temperature 97.5 F L Pulse Rate 79 Respiratory Rate 18 Blood Pressure 105/50 L Pulse Oximetry 96 Oxygen Delivery Method Oxygen Flow Rate 2 Fraction of Inspired Oxygen 32 SaO2/FiO2 Ratio 300 Oxygen Delivery Method Simple Mask Oxygen Flow Rate 2 Narrative Exam Narrative: GEN: no acute distress, on O2 HEENT: moist mucous membranes, PERRL NECK: trachea midline, no JVD CV: regular rate and rhythm, no murmurs PULM: diffuse fine crackles, absent left basilar breath sounds ABD: soft, nontender, nondistended, no organomegaly EXT: warm and well perfused with no edema NEURO: awake, alert, oriented, no focal deficits Objective Labs 05/22/23 04:10 05/22/23 04:10 Labs: Laboratory Results - last 24 hr 05/21/23 05/22/23 10:43 04:10 WBC 8.1 RBC 4.03 L Hgb 12.6 L Hct 37.2 L MCV 92.3 MCH 31.2 MCHC 33.8 RDW 14.1 Plt Count 251 Neut % (Auto) 65.2 Lymph % (Auto) 19.8 L [place] % (Auto) 10.4 Eos % (Auto) 4.1 H Baso % (Auto) 0.5 Neut # (Auto) 5200 Lymph # (Auto) 1600 [place] # (Auto) 800 Eos # (Auto) 300 Baso # (Auto) 0 PT 21.4 H D INR 1.9 H Sodium 135 L Potassium 3.8 Chloride 101 Carbon Dioxide 30 BUN 26 H Creatinine 1.02 Estimated GFR > 60 BUN/Creatinine Ratio 25.5 H Glucose 93 Calcium 8.8 Blood Type B Positive [facility] Medical History (Updated 05/20/23 @ 16:50 by Joselito Das MD) Positive FIT (fecal immunochemical test) Normocytic anemia Chronic pain of both shoulders Cranial somatic dysfunction Cervical somatic dysfunction Neck stiffness Actinic keratoses Excessive cerumen in both ear canals Right medial knee pain Insomnia secondary to chronic pain Chronic neck pain Chicken pox (1975) Measles Mumps Ankle pain (2016) Foot pain Shoulder pain Sleep apnea (~1999) Colon polyps Kidney stones Hearing loss Cardiac arrhythmia (~2014) Cardiac tumor (~2001) Pacemaker (1998) Atrial fibrillation Coronary artery disease (1998) Hypertension Hyperlipidemia Surgical History History of right-sided carotid endarterectomy (~09/2010) AICD (automatic cardioverter/defibrillator) present (12/29/15) History of colonoscopy with polypectomy (07/08/14) History of colonoscopy with polypectomy (05/24/09) Status post carotid surgery (1998) Anesthesia Status post cardiac surgery (~2001) S/P CABG (coronary artery bypass graft) (1998) Status post placement of cardiac pacemaker (~2001) Family History Brother Age: 79 Heart disease Child Liver failure Father Heart disease Grandfather Heart disease Mother MS (multiple sclerosis) Grandmother No problems noted. Sister Stomach cancer Sister Heart disease Social History household members: none Smoking Status: Former smoker alcohol intake: never Discharge Plan Discharge Plan Patient Disposition: Home Health Service Provider Discharge Comment: You were admitted for worsening shortness of breath. We found you may have new onset pulmonary fibrosis as well as pneumonia. The data center manager saw you and is also concerned for underlying cancer due to a mass- like density in your left upper lung. We removed fluid from your left lung cavity which should help you breath better. You will be on antibiotics for a total of 10 days and follow-up with pulmonology in their clinic for repeat CT scan in 3-4 weeks. Discharge orders & Medications Prescriptions: New doxycycline hyclate 100 mg Tablet 100 mg PO BID 2 Days Qty: 5 0RF Rx Instructions: start evening of 05/22 amoxicillin-pot clavulanate 875-125 mg tablet 1 tab PO BID 7 Days Qty: 14 0RF Rx Instructions: start on 05/23 Continued spironolactone 25 MG tablet 25 mg PO QDAY Qty: 0 isosorbide dinitrate 30 MG tablet 30 mg PO DAILY Qty: 0 losartan 25 MG tablet 25 mg PO QDAY Qty: 0 aspirin [Adult Aspirin Regimen] 81 mg tablet,delayed release (DR/EC) 81 mg PO DAILY atorvastatin 40 mg tablet 40 mg PO DAILY Qty: 90 0RF warfarin 2.5 mg tablet 2.5 mg PO .COMPLEX Qty: 100 3RF Rx Instructions: Take 2.5mg total daily or as directed. metoprolol succinate 50 mg tablet extended release 24 hr 50 mg PO DAILY sotalol 80 mg tablet 80 mg PO BID Asmanex HFA 200 mcg/actuation HFA aerosol inhaler 1 puff inhalation BID Qty: 13 0RF Rx Instructions: Inhale one puff twice daily use with spacer. Rinse mouth out well after use (DME) BreatheRite MDI Spacer Spacer See Rx Instructions .Route Qty: 1 0RF Rx Instructions: As directed albuterol sulfate 90 mcg/actuation HFA aerosol inhaler 2 puff inhalation Q6H PRN (Reason: shortness of breath or wheezing) Qty: 8.5 0RF Follow up/Referrals: Jason Cruz, [Primary Care Provider] - 05/28/23 9:00 am (Appt:05/28 @ 9:[address] Cruz please arrive 15 min prior to your scheduled appointment time ) Other Ambulatory Orders: Referral to: (Schedule) Timeframe: 3 Weeks Location: Determined by Patient Ordered By: Sreekanth Middleton Diet/Activity/Treatments Diet: Diet as Tolerated Activity: as tolerated Oxygen: home o2 per nasal cannula Visit Report/Discharge Packet Stand Alone Forms: Patient Portal/API Discharge Data Primary Care Provider: Jason Cruz Quality VTE Deep Vein Thrombosis/Pulmonary Embolism Present on Admission: No
--- NOTE | 2023-05-22 13:13 | CM.DPC ---
DCP Continued Deana from [facility] called and confirmed that they can accept Pt. Pt has DC orders for today. Pt. states that he is independant with ambulating to the restroom. Pt. most likely may need Home O2. To be setup with Home O2 by Respiratory therapy. P: Pt shoudl DC home today. Will ensure that [facility] has DC summary. Initial referral has already been sent. Tamra Bobo RN/Pastry Cook
--- NOTE | 2023-05-22 16:20 | PC.NURSE ---
Late Entry: 05/22/23 at 0850 - Dr. Middleton notified that body fluid specimen was not processed as order. Location of the fluid sample is unknown. Dr. Middleton reports that he will notify the family.
== END 2023-05-22 13:45 | disposition home health service (06) | DRG 180 ==
LOC: ED 11:31 → AC 13:02
PROVIDERS: Admitting Provider Student in an Organized Health Care Education/Training Program; Emergency Provider Emergency Medicine; PCP Family Medicine; Referring Provider Emergency Medicine; Visit Provider Student in an Organized Health Care Education/Training Program
DX: C34.12 Malignant neoplasm of upper lobe, left bronchus or lung (principal); J18.9 Pneumonia, unspecified organism; J96.01 Acute respiratory failure with hypoxia; I50.20 Unspecified systolic (congestive) heart failure; J84.10 Pulmonary fibrosis, unspecified; I25.10 Atherosclerotic heart disease of native coronary artery without angina pectoris; I48.0 Paroxysmal atrial fibrillation; I11.0 Hypertensive heart disease with heart failure; E78.5 Hyperlipidemia, unspecified; Z79.01 Long term (current) use of anticoagulants; Z95.5 Presence of coronary angioplasty implant and graft; Z95.1 Presence of aortocoronary bypass graft; Z87.891 Personal history of nicotine dependence
CPT/HCPCS: 36415; 36430; 71045; 71250; 80048; 80053; 82550; 83735; 83880; 84484; 85025; 85610; 86900; 86901; 86927; 87633; 94618; 94760; 96374; 99233; 99284; P9016; J0696; J1940

== ENCOUNTER 2023-06-04 23:33 | Inpatient (IN) | payer OTHER, SELFPAY ==
[2023-05-20 15:02] VITALS: BMI 32.9
[2023-06-04 23:38] VITALS: BP 95/54; PULSE 80; RESP 28; O2SAT 99
[2023-06-04 23:45] VITALS: BP 95/54; PULSE 80; RESP 25; TEMP 36.3; O2SAT 99; BMI 31.6
--- NOTE | 2023-06-04 23:45 | DI.RAD.S_ITS ---
PROCEDURE: XR CHEST 1V INDICATIONS: Shortness of breath TECHNIQUE: One view of the chest was acquired. COMPARISON: [facility], CR, XR CHEST 1V, 05/21/2023, 18:12. FINDINGS: Surgical changes and devices: Left cardiac pacemaker. Median sternotomy wires. Lungs and pleura: Small-moderate size left pleural effusion, larger than prior study. Diffuse interstitial prominence. Suggestion of mild vascular congestion more pronounced on the left. Streaky bibasilar opacities likely representing atelectasis. No pneumothorax. Mediastinum: The cardiomediastinal contours remain stable with enlargement of the cardiac silhouette. Bones and chest wall: No suspicious bony lesions. Overlying soft tissues appear unremarkable. IMPRESSION: Cardiomegaly with findings suggestive of pulmonary edema. Interval increase in size of now small-moderate sized left pleural effusion. Underlying airspace disease/pneumonia not excluded if clinically appropriate. Dictated by: Ignacio Blount M.D. on 06/05/2023 at 0:49 Approved by: Ignacio Blount M.D. on 06/05/2023 at 0:51
--- NOTE | 2023-06-04 23:54 | ED.GENADULT ---
HPI - General Adult General Chief complaint: Shortness of Breath/Dyspnea Stated complaint: SOB Time Seen by Provider: 06/04/23 23:38 Source: patient, family and EMS Mode of arrival: EMS Limitations: no limitations History of Present Illness HPI narrative: Patient is an 78-year-old male. Multiple chronic medical issues. Is on anticoagulation. Was admitted here to the hospital approximately 2-3 weeks ago. Had a left-sided thoracentesis with removal of just over 1 L of fluid. He was not discharged home on diuretics. He states since he was discharged home he is had progressively worsening shortness of breath specifically dyspnea on exertion. At baseline he is had 3 L of oxygen by nasal cannula and he is had to increase this over the past several weeks and specifically with a past couple days. Over the past couple days it has gotten to the point where he can barely get up and walk around without becoming short of breath. When he is lying in bed he is feeling somewhat better. No chest pain. No fevers. No cough. He is having lower extremity swelling. He was supposed to follow-up with pulmonology tomorrow when he had a CT scan the last time he was admitted to the hospital there was concern about a lung mass. He did receive a nebulizer treatment by EMS prior to arrival with minimal if any improvement of symptoms. Related Data Home Medications Medication Instructions Recorded Confirmed isosorbide dinitrate 30 mg tablet 30 mg PO DAILY ##0 09/15/11 06/05/23 spironolactone 25 mg tablet 25 mg PO QDAY ##0 09/15/11 06/05/23 losartan 25 mg tablet 25 mg PO QDAY ##0 06/02/12 06/05/23 metoprolol succinate 50 mg 50 mg PO DAILY 09/23/18 06/05/23 tablet,extended release 24 hr sotalol 80 mg tablet 80 mg PO BID 09/23/18 06/05/23 aspirin 81 mg tablet,delayed 81 mg PO DAILY 10/06/18 06/05/23 release (Adult Aspirin Regimen) Previous Rx's Medication Instructions Recorded atorvastatin 40 mg tablet 40 mg PO DAILY #90 tabs 03/21/23 Asmanex HFA 200 mcg/actuation 1 puff inhalation BID #13 grams 05/08/23 aerosol inhaler (mometasone) inhalational spacing device #1 ea 11/16/23 (BreatheRite MDI Spacer) albuterol sulfate 90 mcg/actuation 2 puff inhalation Q6H PRN 05/19/23 aerosol inhaler shortness of breath or wheezing #8.5 grams warfarin 2.5 mg tablet 2.5 mg PO .COMPLEX #100 tabs 05/20/23 Adult Oxygen mask #1 ea 06/04/23 Allergies Allergy/AdvReac Type Severity Reaction Status Date / Time adhesive Allergy Mild BLISTERS Verified 05/19/23 08:44 AND RASH lisinopril AdvReac Mild COUGH Verified 05/19/23 08:44 Review of Systems Review of Systems ROS Unobtainable: All systems reviewed & are unremarkable except as noted in HPI and below Patient History Medical History Positive FIT (fecal immunochemical test) Normocytic anemia Chronic pain of both shoulders Cranial somatic dysfunction Cervical somatic dysfunction Neck stiffness Actinic keratoses Excessive cerumen in both ear canals Right medial knee pain Insomnia secondary to chronic pain Chronic neck pain Chicken pox (1975) Measles Mumps Ankle pain (2016) Foot pain Shoulder pain Sleep apnea (~1999) Colon polyps Kidney stones Hearing loss Cardiac arrhythmia (~2014) Cardiac tumor (~2001) Pacemaker (1998) Atrial fibrillation Coronary artery disease (1998) Hypertension Hyperlipidemia Surgical History History of right-sided carotid endarterectomy (~09/2010) AICD (automatic cardioverter/defibrillator) present (12/29/15) History of colonoscopy with polypectomy (07/08/14) History of colonoscopy with polypectomy (05/24/09) Status post carotid surgery (1998) Anesthesia Status post cardiac surgery (~2001) S/P CABG (coronary artery bypass graft) (1998) Status post placement of cardiac pacemaker (~2001) Family History Brother Age: 79 Heart disease Child Liver failure Father Heart disease Grandfather Heart disease Mother MS (multiple sclerosis) Grandmother No problems noted. Sister Stomach cancer Sister Heart disease Social History household members: none Smoking Status: Former smoker alcohol intake: never Smoking Status: Former smoker alcohol intake frequency: 0-2 drinks per day Substance Use Type: does not use Exam Initial Vital Signs Initial Vital Signs: Vital Signs Pulse Rate 80 06/04/23 23:38 Respiratory Rate 28 H 06/04/23 23:38 Blood Pressure 95/54 L 06/04/23 23:38 Pulse Oximetry 99 06/04/23 23:38 Oxygen Delivery Method Nasal Cannula 06/04/23 23:38 Oxygen Flow Rate 4 06/04/23 23:38 Const General: comfortable Other: Chronically ill-appearing HENMT Head: normal to inspection and normocephalic Resp Effort & Inspection: labored, no respiratory distress and tachypneic Other: Significantly decreased breath sounds to the left compared to the right Cardio Rate: regular rate Rhythm: regular rhythm GI Inspection: normal to inspection and non-distended Skin General: no rashes or lesions noted Neuro General: patient alert, patient awake and patient oriented x3 Speech: speech normal Extrem General: edema Scores GCS [place] coma scale eye opening: Spontaneous Prat[place]ha coma scale verbal response: Orientated Pratibha coma scale motor response: Obey commands [place] coma scale total score: 15 Course Orders Ordered: ED Orders 06/04/23 23:45 XR chest 1V Stat EKG-12 Lead Stat RT Consult Eval and Treat Now Acetaminophen (Acetaminophen 325 Mg Tablet) 650 mg PO Q6H PRN PRN Reason: Fever/Mild Pain (1-3) Hydrocodone Bitart/Acetaminophen (Hydrocodone/Acet 5/325 Tablet) 1 tab PO Q4H PRN PRN Reason: Pain, Moderate (4-6) Albuterol (Albuterol 2.5 Mg/3 Ml Neb (Adult)) 2.5 mg INH Q6H PRN PRN Reason: Shortness Of Breath Or Wheezing Atorvastatin Calcium (Atorvastatin 20 Mg Tablet) 40 mg PO DAILY JULISA Budesonide (Budesonide 0.5 Mg/2 Ml Neb) 0.5 mg INH BID JULISA Calcium Carbonate (Calcium Carbonate 500 Mg Tab) 1,000 mg PO Q4HR PRN PRN Reason: Dyspepsia Furosemide (Furosemide 40 Mg/4 Ml Vial) 40 mg IV Q8H JULISA Losartan Potassium (Losartan 25 Mg Tablet) 25 mg PO DAILY [facility] Metoprolol Succinate (Metoprolol Er 50 Mg Tablet) 50 mg PO DAILY [facility] Naloxone HCl (Naloxone 0.4 Mg/Ml Vial) 0.2 mg IV Q2MIN PRN PRN Reason: Opiate Reversal Non-Formulary Medication (Isosorbide Dinitrate) 30 mg PO DAILY [facility] Ondansetron HCl (Ondansetron 4 Mg/2 Ml Inj) 4 mg IV Q8HR PRN PRN Reason: Nausea And Vomiting Ondansetron HCl (Ondansetron 4 Mg Odt) 4 mg PO Q8HR PRN PRN Reason: Nausea And Vomiting Pantoprazole Sodium (Pantoprazole Dr 20 Mg Tablet) 20 mg PO 0600 [facility] Sennosides (Sennosides 8.6 Mg Tablet) 17.2 mg PO BEDTIME JULISA Sotalol HCl (Sotalol 80 Mg Tablet) 80 mg PO BID [facility] Spironolactone (Spironolactone 25 Mg Tablet) 25 mg PO DAILY JULISA Discontinued Medications Furosemide 60 mg/ Sodium (Chloride) 56 mls @ 112 mls/hr IV NOW ONE Stop: 06/05/23 00:58 Last Infusion: 06/05/23 02:20 Dose: Infused Documented By: Admin: 06/05/23 01:11 Dose: 112 mls/hr Documented By: DARNELL Phytonadione (Phytonadione (Vit K1) 5 Mg Tablet) 10 mg PO NOW ONE Stop: 06/05/23 00:58 Last Admin: 06/05/23 01:09 Dose: 10 mg Documented By: DARNELL Vital Signs Vital signs: Vital Signs - 8 hr 06/04/23 23:38 06/04/23 23:38 06/04/23 23:45 Temperature 97.3 F L Pulse Rate 80 80 Respiratory Rate 28 H 25 H Blood Pressure 95/54 L 95/54 L Pulse Oximetry 99 99 Oxygen Delivery Method Nasal Cannula Nasal Cannula Oxygen Flow Rate 4 6 06/05/23 00:00 06/05/23 00:30 06/05/23 00:31 Temperature Pulse Rate 79 79 79 Respiratory Rate 26 H 29 H 26 H Blood Pressure Pulse Oximetry 94 91 91 Oxygen Delivery Method Nasal Cannula Nasal Cannula Oxygen Flow Rate 4 4 06/05/23 00:31 06/05/23 01:00 06/05/23 01:00 Temperature Pulse Rate 79 Respiratory Rate 28 H Blood Pressure 85/53 L 81/49 L Pulse Oximetry 94 Oxygen Delivery Method Nasal Cannula Oxygen Flow Rate 4 06/05/23 01:30 06/05/23 01:30 06/05/23 02:00 Temperature Pulse Rate 79 78 Respiratory Rate 30 H 24 Blood Pressure 81/53 L Pulse Oximetry 95 96 Oxygen Delivery Method Nasal Cannula Nasal Cannula Oxygen Flow Rate 4 4 06/05/23 02:00 Temperature Pulse Rate Respiratory Rate Blood Pressure 89/51 L Pulse Oximetry Oxygen Delivery Method Oxygen Flow Rate Medical Decision Making Medical Records Medical records reviewed: Yes I reviewed the patient's medical records. Lab Data Lab results reviewed: Yes I reviewed the patient's lab results. 06/04/23 00:15 Labs: Lab Results 06/04/23 Range/Units 00:15 WBC 12.1 H (4.5-11.0) X10^3/uL RBC 4.29 L (4.5-5.9) X10^6/uL Hgb 13.3 L (13.5-17.5) g/dL Hct 39.5 L (41-53) % MCV 92.2 (80-100) fL MCH 31.0 (26-34) PG MCHC 33.6 (30-36) % RDW 14.0 (11.6-14.8) % Plt Count 256 (150-400) X10^3/uL Neut % (Auto) 74.3 (50-75) % Lymph % (Auto) 13.6 L (25-40) % [place] % (Auto) 10.3 (3-14) % Eos % (Auto) 1.2 L (2-4) % Baso % (Auto) 0.6 (0-2) % Neut # (Auto) 9000 H (0969-1003) /uL Lymph # (Auto) 1600 (8094-5147) /uL [place] # (Auto) 1200 H (0-900) /uL Eos # (Auto) 100 (0-450) /uL Baso # (Auto) 100 (0-100) /uL PT 131.6 H (9.4-12.5) SECONDS INR 11.2 H* (0.9-1.3) APTT 55 H (25.1-36.5) SECONDS Lactate 1.8 (0.7-2.1) mmol/L Magnesium 2.0 (1.6-2.3) mg/dL Total Creatine Kinase 35 L (55-170) U/L Troponin I 0.016 (0.01-0.034) ng/mL NT-Pro-B Natriuret Pep 1770 H (<450) pg/mL Lipase 225 (23-300) U/L Procalcitonin 0.12 (<0.5) ng/mL Imaging Data Chest x-ray: Radiologist's Impression: PROCEDURE: XR CHEST 1V INDICATIONS: Shortness of breath TECHNIQUE: One view of the chest was acquired. COMPARISON: [facility], , XR CHEST 1V, 05/21/2023, 18:12. FINDINGS: Surgical changes and devices: Left cardiac pacemaker. Median sternotomy wires. Lungs and pleura: Small-moderate size left pleural effusion, larger than prior study. Diffuse interstitial prominence. Suggestion of mild vascular congestion more pronounced on the left. Streaky bibasilar opacities likely representing atelectasis. No pneumothorax. Mediastinum: The cardiomediastinal contours remain stable with enlargement of the cardiac silhouette. Bones and chest wall: No suspicious bony lesions. Overlying soft tissues appear unremarkable. IMPRESSION: Cardiomegaly with findings suggestive of pulmonary edema. Interval increase in size of now small-moderate sized left pleural effusion. Underlying airspace disease/pneumonia not excluded if clinically appropriate. ECG Data Attestation: I personally reviewed and interpreted this ECG as follows: Interpretation: Sinus rhythm Ventricular rate 80 Normal axis Normal QRS Right bundle-branch block No ST T wave changes MDM Narrative Medical decision making narrative: Patient has a white count of 12 however low suspicion for pneumonia. He is not having fevers. Chest x-ray shows what appears to be a reaccumulation of the effusion on the left. It is approximately the same or potentially even worse than the chest x-ray that he had prior to having the thoracentesis. Patient is on nasal cannula at 3-4 L here in the ER. Is still tachypneic but is not hypoxic. He does have lower extremity swelling. His BNP is greater than 1000. He was given Lasix. He does have a supratherapeutic INR. No active bleeding noted. Was given vitamin K for this. Would suspect that he was going to need further correction of this if he was going to need another left-sided thoracentesis. Given the patient's presentation he does require admission to the hospital for further evaluation and treatment. The patient expressed understanding and agreement with this. Discussed the case with Dr. Cristina hospitalist on-call who will admit. Discharge Plan Departure Patient Disposition: Admitted As Inpatient Clinical Impression: Acute respiratory distress, Pleural effusion, Dyspnea on exertion, Supratherapeutic INR Admit Date/Time: 06/05/23 02:29 Admit Provider: Timothy Short
[2023-06-05] VITALS (69 sets, daily range): BP systolic 69–114; BP diastolic 47–63; PULSE 70–95; RESP 17–63; TEMP 35.8–36.3; O2SAT 86–98; BMI 31.6; BMI 34.4
[2023-06-05 00:29] LABS: Add Manual Diff / Slide Review NO; Basophils Absolute Auto 100 /uL (0-100); Basophils Percent Auto 0.6 % (0-2); Eosinophils Absolute Auto 100 /uL (0-450); Eosinophils Percent Auto 1.2 % (2-4); Hematocrit 39.5 % (41-53); Hemoglobin 13.3 g/dL (13.5-17.5); Lymphocytes Absolute Auto 1600 /uL (1100-4500); Lymphocytes Percent Auto 13.6 % (25-40); Mean Corpuscular HGB Conc 33.6 % (30-36); Mean Corpuscular Volume 92.2 fL (80-100); Monocytes Absolute Auto 1200 /uL (0-900); Monocytes Percent Auto 10.3 % (3-14); Neutrophils Absolute Auto 9000 /uL (1500-7000); Neutrophils Percent Auto 74.3 % (50-75); Platelet Count 256 X10^3/uL (150-400); Red Blood Cell Count 4.29 X10^6/uL (4.5-5.9); White Blood Cell Count 12.1 X10^3/uL (4.5-11.0)
[2023-06-05 00:36] LABS: PTT Partial Thromboplastin Tim 55 SECONDS (25.1-36.5)
[2023-06-05 00:39] LABS: Creatine Kinase 35 U/L (55-170); Lactate (Lactic Acid) 1.8 mmol/L (0.7-2.1); Lipase 225 U/L (23-300)
[2023-06-05 00:40] LABS: Prothrombin Time 131.6 SECONDS (9.4-12.5)
[2023-06-05 00:42] LABS: INR 11.2 (0.9-1.3)
[2023-06-05 00:52] LABS: NT-proBNP (BNP-Adult 18+) 1770 pg/mL (<450); Troponin I 0.016 ng/mL (0.01-0.034)
[2023-06-05 00:58] LABS: Procalcitonin 0.12 ng/mL (<0.5)
[2023-06-05] MEDS: PHYTONADIONE (VIT K1) 5 MG TABLET 10 MG PO (01:09)
[2023-06-05] MEDS: FUROSEMIDE 60 MG in SODIUM CHLORIDE 0.9% 50 ML 112 MG IV (01:11)
--- NOTE | 2023-06-05 03:56 | P.HP_ITS ---
History of Present Illness History of Present Illness Date Patient Seen: 06/05/23 Time Patient Seen: 03:57 Chief complaint: SOB Narrative: The pt was discharged from our facility after finding a left sided pleural effusion and having a thorocentesis. He was discharged home on 2 lpm and has been having progressive dyspnea over the past two weeks since being discharged. He denies any CP, chest pressure, productive sputum, ext. edema, change in meds or appetite. He has a p-ox at home and states that it has been reading in the 80's prior to presentation to the ER. The pleural fluid did not make it to the lab on last hospitalization, CT chest was reviewed by myself which did showed marked honeycombing, scarring, and possible PRICE mass. The pt was supposedly going to see the marine engine machinist tomorrow in the clinic for a f/up. The pt did not go to the PCP office f/up post hospitalization. [facility] Medical History (Updated 06/05/23 @ 02:29 by Timothy Jaun DO) Positive FIT (fecal immunochemical test) Normocytic anemia Chronic pain of both shoulders Cranial somatic dysfunction Cervical somatic dysfunction Neck stiffness Actinic keratoses Excessive cerumen in both ear canals Right medial knee pain Insomnia secondary to chronic pain Chronic neck pain Chicken pox (1975) Measles Mumps Ankle pain (2016) Foot pain Shoulder pain Sleep apnea (~1999) Colon polyps Kidney stones Hearing loss Cardiac arrhythmia (~2014) Cardiac tumor (~2001) Pacemaker (1998) Atrial fibrillation Coronary artery disease (1998) Hypertension Hyperlipidemia Surgical History History of right-sided carotid endarterectomy (~09/2010) AICD (automatic cardioverter/defibrillator) present (12/29/15) History of colonoscopy with polypectomy (07/08/14) History of colonoscopy with polypectomy (05/24/09) Status post carotid surgery (1998) Anesthesia Status post cardiac surgery (~2001) S/P CABG (coronary artery bypass graft) (1998) Status post placement of cardiac pacemaker (~2001) Family History Brother Age: 79 Heart disease Child Liver failure Father Heart disease Grandfather Heart disease Mother MS (multiple sclerosis) Grandmother No problems noted. Sister Stomach cancer Sister Heart disease Social History household members: none Smoking Status: Former smoker alcohol intake: never Meds Home Medications and Allergies Home Medications Medication Instructions Recorded Confirmed Type isosorbide dinitrate 30 mg tablet 30 mg PO DAILY ##0 09/15/11 06/05/23 History spironolactone 25 mg tablet 25 mg PO QDAY ##0 09/15/11 06/05/23 History losartan 25 mg tablet 25 mg PO QDAY ##0 06/02/12 06/05/23 History metoprolol succinate 50 mg 50 mg PO DAILY 09/23/18 06/05/23 History tablet,extended release 24 hr sotalol 80 mg tablet 80 mg PO BID 09/23/18 06/05/23 History aspirin 81 mg tablet,delayed 81 mg PO DAILY 10/06/18 06/05/23 History release (Adult Aspirin Regimen) atorvastatin 40 mg tablet 40 mg PO DAILY #90 tabs 03/21/23 06/05/23 Rx Asmanex HFA 200 mcg/actuation 1 puff inhalation BID #13 grams 05/08/23 06/05/23 Rx aerosol inhaler (mometasone) inhalational spacing device #1 ea 05/08/23 05/20/23 Rx (BreatheRite MDI Spacer) albuterol sulfate 90 mcg/actuation 2 puff inhalation Q6H PRN 05/19/23 06/05/23 Rx aerosol inhaler shortness of breath or wheezing #8.5 grams warfarin 2.5 mg tablet 2.5 mg PO .COMPLEX #100 tabs 05/20/23 06/05/23 Rx Adult Oxygen mask #1 ea 06/04/23 Rx Allergies Allergy/AdvReac Type Severity Reaction Status Date / Time adhesive Allergy Mild BLISTERS Verified 05/19/23 08:44 AND RASH lisinopril AdvReac Mild COUGH Verified 05/19/23 08:44 Exam Vital Signs (past 8 hours): - 06/04/23 23:38 06/04/23 23:38 06/04/23 23:45 Temperature 97.3 F L Pulse Rate 80 80 Respiratory Rate 28 H 25 H Blood Pressure 95/54 L 95/54 L Pulse Oximetry 99 99 Oxygen Delivery Method Nasal Cannula Nasal Cannula Oxygen Flow Rate 4 6 06/05/23 00:00 06/05/23 00:30 06/05/23 00:31 Temperature Pulse Rate 79 79 79 Respiratory Rate 26 H 29 H 26 H Blood Pressure Pulse Oximetry 94 91 91 Oxygen Delivery Method Nasal Cannula Nasal Cannula Oxygen Flow Rate 4 4 06/05/23 00:31 06/05/23 01:00 06/05/23 01:00 Temperature Pulse Rate 79 Respiratory Rate 28 H Blood Pressure 85/53 L 81/49 L Pulse Oximetry 94 Oxygen Delivery Method Nasal Cannula Oxygen Flow Rate 4 06/05/23 01:30 06/05/23 01:30 06/05/23 02:00 Temperature Pulse Rate 79 78 Respiratory Rate 30 H 24 Blood Pressure 81/53 L Pulse Oximetry 95 96 Oxygen Delivery Method Nasal Cannula Nasal Cannula Oxygen Flow Rate 4 4 06/05/23 02:00 06/05/23 02:30 06/05/23 02:30 Temperature Pulse Rate 79 Respiratory Rate 34 H Blood Pressure 89/51 L 87/56 L Pulse Oximetry 94 Oxygen Delivery Method Nasal Cannula Oxygen Flow Rate 06/05/23 03:00 06/05/23 03:21 06/05/23 03:21 Temperature Pulse Rate 82 81 Respiratory Rate 30 H 27 H Blood Pressure 78/54 L Pulse Oximetry 94 94 Oxygen Delivery Method Nasal Cannula Nasal Cannula Oxygen Flow Rate 4 4 06/05/23 03:30 06/05/23 03:30 Temperature Pulse Rate 81 Respiratory Rate 26 H Blood Pressure 86/56 L Pulse Oximetry 96 Oxygen Delivery Method Room Air Oxygen Flow Rate 4 Oxygen Delivery Method Room Air Oxygen Flow Rate 4 Narrative Exam Narrative: THe pt was in no distress, talking in complete sentences without dypnea, Chest Other: rales on right, absent in the left, on 2 lpm NC Cardio Rate: regular rate Rhythm: regular rhythm GI Inspection: normal to inspection Auscultation: normal bowel sounds Extrem General: no clubbing, cyanosis or edema Objective Labs 06/04/23 00:15 Labs: Laboratory Results - last 24 hr 06/04/23 00:15 WBC 12.1 H RBC 4.29 L Hgb 13.3 L Hct 39.5 L MCV 92.2 MCH 31.0 MCHC 33.6 RDW 14.0 Plt Count 256 Neut % (Auto) 74.3 Lymph % (Auto) 13.6 L Hardeman % (Auto) 10.3 Eos % (Auto) 1.2 L Baso % (Auto) 0.6 Neut # (Auto) 9000 H Lymph # (Auto) 1600 Hardeman # (Auto) 1200 H Eos # (Auto) 100 Baso # (Auto) 100 PT 131.6 H INR 11.2 H* APTT 55 H Lactate 1.8 Magnesium 2.0 Total Creatine Kinase 35 L Troponin I 0.016 NT-Pro-B Natriuret Pep 1770 H Lipase 225 Procalcitonin 0.12 Assessment & Plan Assessment and plan (1) Supratherapeutic INR: Status: Acute (2) Pleural effusion: Status: Acute (3) Lung mass: Status: Acute (4) S/P CABG (coronary artery bypass graft): Problem details: 4-way Status: Resolved (5) Atrial fibrillation: Qualifiers: Atrial fibrillation type: longstanding persistent Qualified Code(s): I 48.11 - Longstanding persistent atrial fibrillation Status: None (6) Essential hypertension: Status: None Plan will admit the pt for monitoring and oxygen support. Could consider repeating thorocentesis and send fluid for cytology, the lung mass needs to be evaluated further, last echo showed an EF of 30%, he revieved 60mg of lasix in the ER, will continue with iV lasix and monitor i/o's and daily weights. INR is criticaly high, Vit K given in the ER, will monitor daily , no signs of bleeding at this time, CXR reviewed from today, I discussed the pt's case with ER provider, will monitor on telemetry.
[2023-06-05] MEDS: PANTOPRAZOLE DR 20 MG TABLET PO (06:35)
[2023-06-05 07:14] LABS: Add Manual Diff / Slide Review NO; Basophils Absolute Auto 100 /uL (0-100); Basophils Percent Auto 0.7 % (0-2); Eosinophils Absolute Auto 200 /uL (0-450); Eosinophils Percent Auto 1.4 % (2-4); Hematocrit 38.4 % (41-53); Hemoglobin 12.9 g/dL (13.5-17.5); Lymphocytes Absolute Auto 1600 /uL (1100-4500); Lymphocytes Percent Auto 14.2 % (25-40); Mean Corpuscular HGB Conc 33.5 % (30-36); Mean Corpuscular Hemoglobin 30.8 PG (26-34); Monocytes Absolute Auto 1100 /uL (0-900); Monocytes Percent Auto 9.4 % (3-14); Neutrophils Absolute Auto 8600 /uL (1500-7000); Neutrophils Percent Auto 74.3 % (50-75); Platelet Count 257 X10^3/uL (150-400); Red Blood Cell Count 4.18 X10^6/uL (4.5-5.9); Red Cell Distribution Width 13.9 % (11.6-14.8); White Blood Cell Count 11.6 X10^3/uL (4.5-11.0)
[2023-06-05 07:22] LABS: Prothrombin Time 96.4 SECONDS (9.4-12.5)
[2023-06-05 07:29] LABS: BUN Creatinine Ratio 23.5 (6-22); Blood Urea Nitrogen 48 mg/dL (9-20); Calcium 9.2 mg/dL (8.4-10.2); Carbon Dioxide 24 mmol/L (22-32); Chloride 100 mmol/L (98-107); Estimated Glomerular Filt Rate 32 mL/min (>60); Glucose 90 mg/dL (80-110); HEMOLYSIS < 15 (0-50); Potassium 4.4 mmol/L (3.4-5.1); Sodium 133 mmol/L (137-145)
--- NOTE | 2023-06-05 07:33 | DI.ECHO.S_ITS ---
[facility] +---------+ : : [address] : : : : [id number] : : : : Phone: [phone] Echocardiogram Report + + :Name: JENIFFER MCGEE Study Date: 06/06/2023 Height: 64 in : :[facility] ReadingLocation: Weight: 184 lb: : Gender: Male BSA: 1.9 m2 : :: 1945 Age: 78 yrs BP: 88/53 mmHg: :Reason For Study: SOB : : Performed By: Katey Gonzalez : :Referring: CLEMENTE DAVISON : + + Interpretation Summary The ejection fraction is estimated to be 25-30%. There is mid anteroseptal wall akinesis. There is apical akinesis. The right ventricular systolic pressure is estimated to be at least 36 mmHg based on an estimated right atrial pressure of 3 mm Hg. Left ventricular function has slightly worsened compared to the previous exam. Procedure: A two-dimensional transthoracic echocardiogram with color flow and Doppler was performed. The study quality was technically difficult. Comparison is made with the echocardiogram of 02-14-22. A contrast injection of Definity was performed to improve assessment of LV function. Contrast was injected into an intravenous site in the right arm. The heart rate ranged between 70-71 bpm during the study. The patient has a paced rhythm. Left Ventricle: The left ventricle is mildly dilated. There is normal left ventricular wall thickness. The ejection fraction is estimated to be 25-30%. Left ventricular function has slightly worsened compared to the previous exam. There is mid anteroseptal wall akinesis. There is apical akinesis. Diastolic function could not be accurately assessed due to unobtainable data. Right Ventricle: The right ventricle is mildly dilated. Right ventricular systolic function is mildly reduced. Atria: The left atrium grossly appears normal in size. Right atrial size is normal. The interatrial septum is not well visualized. Mitral Valve: The mitral valve leaflets appear mildly thickened, but open well. There is trace mitral regurgitation. Aortic Valve: The aortic valve opens well. There is trace aortic regurgitation. Tricuspid Valve: The tricuspid valve leaflets are thin and pliable. The tricuspid valve leaflets are thickened and/or calcified, but open well. There is a trace or physiologic amount of tricuspid regurgitation. The right ventricular systolic pressure is estimated to be at least 36 mmHg based on an estimated right atrial pressure of 3 mm Hg. Pulmonic Valve: The pulmonic valve is not well visualized. Great Vessels: The aortic root is normal size. The ascending aorta is normal in size. The aortic arch is normal in size. Pericardium/ Pleura There is no pericardial effusion. MMode/2D Measurements & Calculations LVIDd: 5.6 cm LVOT diam: 2.2 cm LVIDs: 4.6 cm Ao root diam: 3.4 cm FS: 17.0 % asc Aorta Diam: 3.3 cm EPSS: 1.2 cm Ao Arch Diam (Prox Trans): 2.1 cm IVSd: 0.79 cm LVPWd: 0.68 cm LV carias. diameter/BSA (cm/m^2): 3.0 LV sys. diameter/BSA (cm/m^2): 2.5 IVC diam: 1.3 cm Doppler Measurements & Calculations Ao V2 max: 118.0 cm/sec LVOT Max Juan: 67.7 cm/sec Ao V2 mean: 79.7 cm/sec LV V1 max P.8 mmHg Ao max P.6 mmHg LV V1 VTI: 13.5 cm Ao mean P.9 mmHg AJIT(I,D): 2.1 cm2 Ao V2 VTI: 24.9 cm AJIT(V,D): 2.2 cm2 sev ratio: 0.54 AJIT indexed to BSA (cm^2/m^2): 1.1 MV E max juan: 57.9 cm/sec TR max juan: 286.6 cm/sec MV A max juan: 98.9 cm/sec TR max P.1 mmHg MV E/A: 0.59 PA pr(Accel): 36.2 mmHg MV dec time: 0.25 sec SV(LVOT): 52.2 ml Reading Physician:01:[id number] PM
[2023-06-05 07:34] LABS: INR 8.2 (0.9-1.3)
[2023-06-05 07:38] LABS: NT-proBNP (BNP-Adult 18+) 1430 pg/mL (<450)
--- NOTE | 2023-06-05 08:47 | PC.NURSE ---
Noted order for SCDs. Notified coordinator for SCD pump. Unavailable at this time.
[2023-06-05] MEDS: predniSONE 20 MG TABLET 60 MG PO (09:15)
[2023-06-05] MEDS: ATORVASTATIN 20 MG TABLET 40 MG PO (09:15)
[2023-06-05] MEDS: BUDESONIDE 0.5 MG/2 ML NEB INH ×2 (09:16→21:13)
[2023-06-05] MEDS: SOTALOL 80 MG TABLET PO ×2 (09:41→21:12)
[2023-06-05] MEDS: METOPROLOL ER 50 MG TABLET PO (09:41)
--- NOTE | 2023-06-05 09:50 | P.CONS_ITS ---
History of Present Illness Consult details Date Patient Seen: 06/05/23 Time Patient Seen: 09:51 Chief complaint: SOB Reason for consult: recurrent left pleural effusion Requesting provider: Víctor Garrido Narrative: Dr. Víctor Garrido, I had the pleasure of seeing your patient Madison Murillo who is a pleasant 78-year-old male with a coronary artery disease status post bypass grafting, atrial fibrillation on anticoagulation status post pacemaker, ischemic cardiomyopathy with EF of 30 35% status post AICD, family history of pulmonary fibrosis, distant smoking history of 25 pack years quit in 1998 who presents today for worsening acute hypoxemic respiratory failure after recent hospitalization 05/20 with evidence of pulmonary fibrosis, left upper lobe mass, and left pleural effusion status post 1.1 L thoracentesis discharged on supplemental oxygen who presents to the ED again for worsening weakness, shortness of breath and worsening hypoxemia despite home oxygen of 2 L. patient tells me that he is had worsening shortness of breath over the last 1 year. He would a chest x-ray at the end of 2021 showing no specific pathology. He is had progressive exertional dyspnea in interestingly his evaluation with chest x-ray was in April of his hospitalization. There was a new left pleural effusion, interstitial prominence. A CT chest showed a left upper lobe masslike consolidation, left pleural effusion, evidence of interstitial lung disease. He was needing 3 L of oxygen on it presentation last hospitalization. He underwent thoracentesis of 1.1 L with improvement unfortunately no fluid analysis was sent. It was reportedly lost. He does not think he is had any weight loss however there is a documented 20 lb weight loss since last month. He is had decreased appetite corroborated by his son. He is not had any other respiratory symptoms such as hemoptysis though had cough, weakness. He is not had any leg edema and last evaluation in March noted to be euvolemic with no evidence of decompensated heart failure and no interest in pursuing other GDM T including Entresto or Jardiance. His NT proBNP last hospitalization was 1700 out 1400. He presented with an KALE which is new compared to last month's hospitalization 2 weeks ago. Chest x-ray showed recurrent left pleural effusion. Though he was on home 2 L he required escalation to 4 L nasal cannula. The ED gave diuretics. He states that his brother had pulmonary fibrosis and was recently diagnosed with his last hospitalization. On arrival his INR was elevated and so he was given vitamin K. Meds Home Medications and Allergies Home Medications Medication Instructions Recorded Confirmed Type isosorbide dinitrate 30 mg tablet 30 mg PO DAILY ##0 09/15/11 06/05/23 History spironolactone 25 mg tablet 25 mg PO QDAY ##0 09/15/11 06/05/23 History losartan 25 mg tablet 25 mg PO QDAY ##0 06/02/12 06/05/23 History metoprolol succinate 50 mg 50 mg PO DAILY 09/23/18 06/05/23 History tablet,extended release 24 hr sotalol 80 mg tablet 80 mg PO BID 09/23/18 06/05/23 History aspirin 81 mg tablet,delayed 81 mg PO DAILY 10/06/18 06/05/23 History release (Adult Aspirin Regimen) atorvastatin 40 mg tablet 40 mg PO DAILY #90 tabs 03/21/23 06/05/23 Rx Asmanex HFA 200 mcg/actuation 1 puff inhalation BID #13 grams 05/08/23 06/05/23 Rx aerosol inhaler (mometasone) inhalational spacing device #1 ea 05/08/23 06/05/23 Rx (BreatheRite MDI Spacer) albuterol sulfate 90 mcg/actuation 2 puff inhalation Q6H PRN 05/19/23 06/05/23 Rx aerosol inhaler shortness of breath or wheezing #8.5 grams warfarin 2.5 mg tablet 2.5 mg PO .COMPLEX #100 tabs 05/20/23 06/05/23 Rx Adult Oxygen mask #1 ea 06/04/23 06/05/23 Rx Allergies Allergy/AdvReac Type Severity Reaction Status Date / Time adhesive Allergy Mild BLISTERS Verified 05/19/23 08:44 AND RASH lisinopril AdvReac Mild COUGH Verified 05/19/23 08:44 Exam Vital Signs (past 8 hours): - 06/05/23 02:00 06/05/23 02:00 06/05/23 02:30 Pulse Rate 78 79 Respiratory Rate 24 34 H Blood Pressure 89/51 L Pulse Oximetry 96 94 Oxygen Delivery Method Nasal Cannula Nasal Cannula Oxygen Flow Rate 4 06/05/23 02:30 06/05/23 03:00 06/05/23 03:21 Pulse Rate 82 81 Respiratory Rate 30 H 27 H Blood Pressure 87/56 L Pulse Oximetry 94 94 Oxygen Delivery Method Nasal Cannula Nasal Cannula Oxygen Flow Rate 4 4 06/05/23 03:21 06/05/23 03:30 06/05/23 03:30 Pulse Rate 81 Respiratory Rate 26 H Blood Pressure 78/54 L 86/56 L Pulse Oximetry 96 Oxygen Delivery Method Room Air Oxygen Flow Rate 4 06/05/23 04:00 06/05/23 04:00 06/05/23 04:30 Pulse Rate 80 Respiratory Rate 23 Blood Pressure 80/51 L 69/47 L Pulse Oximetry 98 Oxygen Delivery Method Nasal Cannula Oxygen Flow Rate 4 06/05/23 04:30 06/05/23 04:34 06/05/23 04:34 Pulse Rate 77 79 Respiratory Rate 19 23 Blood Pressure 95/56 L Pulse Oximetry 96 97 Oxygen Delivery Method Nasal Cannula Nasal Cannula Oxygen Flow Rate 4 4 06/05/23 05:00 06/05/23 05:00 06/05/23 05:30 Pulse Rate 77 76 Respiratory Rate 19 19 Blood Pressure 78/52 L Pulse Oximetry 95 97 Oxygen Delivery Method Nasal Cannula Nasal Cannula Oxygen Flow Rate 4 4 06/05/23 05:30 06/05/23 06:00 06/05/23 06:00 Pulse Rate 77 Respiratory Rate 18 Blood Pressure 89/50 L 97/56 L Pulse Oximetry 97 Oxygen Delivery Method Nasal Cannula Oxygen Flow Rate 4 06/05/23 06:30 06/05/23 06:31 06/05/23 06:31 Pulse Rate 75 75 Respiratory Rate 19 19 Blood Pressure 84/52 L Pulse Oximetry 96 96 Oxygen Delivery Method Nasal Cannula Nasal Cannula Oxygen Flow Rate 4 4 06/05/23 07:00 06/05/23 07:00 06/05/23 07:30 Pulse Rate 80 Respiratory Rate 23 Blood Pressure 94/57 L 99/57 L Pulse Oximetry 96 Oxygen Delivery Method Nasal Cannula Oxygen Flow Rate 4 06/05/23 07:30 06/05/23 08:00 06/05/23 08:00 Pulse Rate 80 81 Respiratory Rate 25 H 26 H Blood Pressure 108/55 L Pulse Oximetry 95 95 Oxygen Delivery Method Nasal Cannula Oxygen Flow Rate 4 06/05/23 08:30 06/05/23 09:00 06/05/23 09:01 Pulse Rate 82 90 90 Respiratory Rate 28 H 29 H 29 H Blood Pressure Pulse Oximetry 93 94 94 Oxygen Delivery Method Oxygen Flow Rate 06/05/23 09:01 Pulse Rate Respiratory Rate Blood Pressure 106/54 L Pulse Oximetry Oxygen Delivery Method Oxygen Flow Rate Oxygen Delivery Method Nasal Cannula Oxygen Flow Rate 4 Narrative Exam Narrative: Elderly male, obese, with mild tachypnea sitting up in hospital bed in no distress, accompanied by his son at bedside Const General: cooperative and comfortable [facility] Head: normal to inspection Other: Wearing nasal cannula and nebulizer mask Resp Other: Mild tachypnea. No conversational dyspnea. Anterior lungs clear without crackling or wheezing. Skin General: no rashes or lesions noted Neuro General: patient alert, patient awake and patient oriented x3 Extrem Other: No pitting edema Psych Appearance: grossly normal Objective Imaging CT scan - chest: My impression: I reviewed chest x-ray from 06/17/2022 showing some interstitial changes, hypoventilatory changes, sternotomy, pacemaker wires I reviewed chest x-ray from 05/08/2023 showing some increased interstitial markings, pulmonary vascular congestion I reviewed chest x-ray from 05/20/2023 showing a new left pleural effusion I reviewed chest CT from 05/12/2023 showing a left upper lobe apical anterior mass, new left pleural effusion, some cardiophrenic enlarged lymph nodes and evidence of peripheral honeycombing Echo: My impression: I reviewed echo showing EF of 30-35% slowly declining over the years Labs 06/05/23 06:50 06/05/23 06:50 Labs: Laboratory Results - last 24 hr 06/04/23 06/05/23 00:15 06:50 WBC 12.1 H 11.6 H RBC 4.29 L 4.18 L Hgb 13.3 L 12.9 L Hct 39.5 L 38.4 L MCV 92.2 92.0 MCH 31.0 30.8 MCHC 33.6 33.5 RDW 14.0 13.9 Plt Count 256 257 Neut % (Auto) 74.3 74.3 Lymph % (Auto) 13.6 L 14.2 L [place] % (Auto) 10.3 9.4 Eos % (Auto) 1.2 L 1.4 L Baso % (Auto) 0.6 0.7 Neut # (Auto) 9000 H 8600 H Lymph # (Auto) 1600 1600 [place] # (Auto) 1200 H 1100 H Eos # (Auto) 100 200 Baso # (Auto) 100 100 PT 131.6 H 96.4 H D INR 11.2 H* 8.2 H* APTT 55 H Sodium 133 L Potassium 4.4 Chloride 100 Carbon Dioxide 24 BUN 48 H Creatinine 2.04 H Estimated GFR 32 L BUN/Creatinine Ratio 23.5 H Glucose 90 Lactate 1.8 Calcium 9.2 Magnesium 2.0 Total Creatine Kinase 35 L Troponin I 0.016 NT-Pro-B Natriuret Pep 1770 H 1430 H Lipase 225 Procalcitonin 0.12 I reviewed NT proBNP down to 14 30, negative procalcitonin, labs showing an elevated INR, hyponatremia, new KALE Unfortunately no pleural fluid studies to review from thoracentesis [facility] Medical History Positive FIT (fecal immunochemical test) Normocytic anemia Chronic pain of both shoulders Cranial somatic dysfunction Cervical somatic dysfunction Neck stiffness Actinic keratoses Excessive cerumen in both ear canals Right medial knee pain Insomnia secondary to chronic pain Chronic neck pain Chicken pox (1975) Measles Mumps Ankle pain (2016) Foot pain Shoulder pain Sleep apnea (~1999) Colon polyps Kidney stones Hearing loss Cardiac arrhythmia (~2014) Cardiac tumor (~2001) Pacemaker (1998) Atrial fibrillation Coronary artery disease (1998) Hypertension Hyperlipidemia Surgical History History of right-sided carotid endarterectomy (~09/2010) AICD (automatic cardioverter/defibrillator) present (12/29/15) History of colonoscopy with polypectomy (07/08/14) History of colonoscopy with polypectomy (05/24/09) Status post carotid surgery (1998) Anesthesia Status post cardiac surgery (~2001) S/P CABG (coronary artery bypass graft) (1998) Status post placement of cardiac pacemaker (~2001) Family History Brother Age: 79 Heart disease Child Liver failure Father Heart disease Grandfather Heart disease Mother MS (multiple sclerosis) Grandmother No problems noted. Sister Stomach cancer Sister Heart disease Social History household members: none Tobacco & Substance Use Smoking Status: Former smoker alcohol intake: never Assessment & Plan Assessment and plan (1) Lung mass: Status: Acute Plan: Patient has a new left upper lobe mass associated with recurrent left pleural effusion and background of interstitial lung disease as well as smoking history. This concerning for malignancy. If his pleural fluid cytology is negative we we will need to perform a CT-guided biopsy. At this time he was coagulopathic in his INR would need to drift down to normal before this could be accomplished. I recommend concurrently obtaining a biopsy which I discussed with him and awaiting further confirmation from the patient to proceed with this. He will likely also need PET-CT imaging and brain MRI imaging if concern for malignancy. Finally we will need to explore goals of care with the patient as if he would not want treatment for malignancy given his worsening and deteriorating condition then this workup would not be needed. (2) Pulmonary fibrosis: Problem details: Chronic and interestingly maybe familial. Overall territory is mild-moderate any certainly does not have severe progressive fibrotic lung disease. Recommendation: -follow-up in pulmonary clinic to include PFT Status: Acute Plan: Patient has subacute worsening of shortness of breath over the last year likely related to interstitial lung disease in the setting of a brother with pulmonary fibrosis which maybe familial. This increases his risk for malignancy. Nothing in the acute setting we will versus disease and he will require prior authorization for antifibrotic which can be done in the outpatient setting on follow up. He now has acute hypoxemic respiratory failure which maybe partly attributed to his interstitial lung disease but also his new recurrent left pleural effusion. He likely will require supplemental oxygen going forward. (3) Pleural effusion: Status: Acute Plan: Patient has a recurrent left pleural effusion in the setting of a left upper lobe mass, idiopathic pulmonary fibrosis, and worsening hypoxemic respiratory failure. Concerned about a malignant etiology. Unfortunately he would a thoracentesis of 1.1 L in the fluids was lost and never sent for analysis. As this is the proximal cause for his worsening hypoxemic respiratory failure in the acute setting (note in the subacute setting likely IPF or ILD) I recommend drainage. I explained to him that he has a coagulopathy related to warfarin. In the end elective setting we would wait till his INR drifted to less than 2 however given that he is worsening hypoxemic respiratory failure recommend proceeding with pigtail catheter placement. We can reduce risk of bleeding with Doppler ultrasound over the thoracentesis site, placement of pigtail catheter do observe for bleeding and if bleeding therapeutic drainage would already be in place, and use of lidocaine with epinephrine. He was in agreement with the plan. We will send for full fluid analysis including cytology, LDH, protein, glucose, cell count differential, and cultures. Once drainage is completed and no obvious bleeding has been noted, the pigtail catheter can be removed at bedside with in the next 1-2 days. (4) Acute hypoxemic respiratory failure: Status: Acute Plan: Patient has new acute hypoxemic respiratory failure in the setting of development of a left pleural effusion and background of interstitial lung disease with a family history. Certainly his progressive shortness of breath without evidence of large left pleural effusion on 05/08/2023 is supportive of progressive IPF corroborated by his chest CT findings and family history. However his rapidly worsening shortness of breath in the last month with 20 lb weight loss is more concerning for an insidious etiology in the setting of a left upper lobe mass, left pleural effusion. At this time I recommend drainage of the left pleural effusion as this appears to be the primary contributing etiology for the acute on acute hypoxemic respiratory failure which is addressed as above. He may require persistent supplemental oxygen especially given the IPF. (5) KALE (acute kidney injury): Status: Acute Plan: Patient has a prerenal KALE in the setting of 20 lb weight loss, no pitting edema. He was given diuretics last night. I recommend IV fluids. Time Spent With Patient Time with patient: 70 minutes or more, with 50% spent counseling/coordinating
[2023-06-05] MEDS: HYDROCODONE/ACET 5/325 TABLET 1 TAB PO (11:04)
[2023-06-05] MEDS: LIDOCAINE 2% W/EPI INJ 20 ML INJ (11:05)
--- NOTE | 2023-06-05 12:37 | PC.NURSE ---
this RN assisted Dr. Rangel with chest tube insertion. patient tolerated well.
--- NOTE | 2023-06-05 12:55 | DI.RAD.S_ITS ---
PROCEDURE: XR CHEST 1V INDICATIONS: chest tube placement TECHNIQUE: One view of the chest was acquired. COMPARISON: [facility], CR, XR CHEST 1V, 06/04/2023, 23:53. FINDINGS: Surgical changes and devices: Similar positioning of left cardiac pacemaker. Interval placement of left chest wall pigtail catheter. Lungs and pleura: Compared to prior radiograph, lung volume has slightly decreased with increasing pulmonary edema on the right. Similar size large left pleural effusion with subjacent atelectasis. No pneumothorax. Mediastinum: Mediastinum is unchanged. Left heart border is obscured by overlying effusion. Bones and chest wall: No suspicious bony lesions. Overlying soft tissues appear unremarkable. Median sternotomy wires are intact. IMPRESSION: Compared to prior radiograph 06/04/2023, interval placement of left chest wall catheter without significant change in size of large left pleural effusion. Dictated by: Gloria Whitney M.D. on 06/05/2023 at 14:21 Approved by: Gloria Whitney M.D. on 06/05/2023 at 14:29
--- NOTE | 2023-06-05 12:59 | PATH_ITS ---
Note [facility] Accession Number: [id number] TESTS RESULT FLAG UNITS REF RANGE LAB Clinician Provided Cytology Information No. of containers..01 Other (Miscellaneous) Source: [A] 01 LEFT PLEURAL FLUID DIAGNOSIS: [A] 01 LEFT PLEURAL FLUID POSITIVE FOR MALIGNANT CELLS. HIGH GRADE NEUROENDOCRINE CARCINOMA, CONSISTENT WITH SMALL CELL NEUROENDOCRINE CARCINOMA. THIS INTERPRETATION INCLUDES EVALUATION OF A CELL BLOCK. COMMENT: Histologic and cytologic findings in this pleural fluid cytology are similar to those seen in [id number] and [id number]. Preliminary findings are communicated directly to Jazmine Painter RN at Dr. Cruz's office on 06/10/23 at 4 pm. Pathologist ICD10: 01 C34.90 Signed out by: Liza Stanley MD, Pathologist NPI- [id number] Performed by: Wisam Del Toro, Joist Setter ([facility]) Gross description: 80 CC, RED, CLOUDY RECEIVED: FRESH IN ORANGE CAP CONTAINER.VO /VDU 06/06/2023 0628 Local FLAG LEGEND: L-Low Normal,H-High Normal,LL-Alert Low,HH-Alert High <-Panic Low,>-Panic High,A-Abnormal,AA-Critical Abnormal Performed at: 01 =Z [facility] [address] [place] [address] [address], [place] [address] Cleveland Alcaraz MD, Performed at: [address] [place] [address] [address] [place] [address] [address], [place], [place] [id number] MD Cleveland Alcaraz MD Phone: [phone]
--- NOTE | 2023-06-05 13:00 | P.PCN_ITS ---
Procedures Date/Time Date of procedure: 06/05/23 Time of procedure: 13:01 Chest Tube Chest Tube Location: Lateral Chest Size of tube: 9 Chest tube procedure: Yes betadine prep and sterile drapes applied Tube sutured to skin: Yes Sterile dressing applied: Yes Anesthesia: 1% Lidocaine w/ Epi (2% lidoc with epi) Volume anesthetic (ml): 10 Incision made with: #10 blade Post procedure: sutured to skin and sterile dressing applied Tube Drainage: fluid (red serosanguinous) Amount of initial drainage (ml): 300 Post procedure CXR?: Yes Patient tolerated procedure well: Yes Progress: CPT 16354. Patient consented for the procedure and verbal consent was obtained after discussion of risks and benefits. Ultrasound was used to identify the appropriate site of insertion in the left anterior chest. A large left pleural effusion was noted. Vascular ultrasound was used to ensure no overlying vasculature at marked site. Site was prepped with chlorhexidine. He was draped sterilely. Appropriate PPE was used. Initially 2% lidocaine with epinephrine was injected subcutaneously through the tract until clear yellow fluid was as pirated. A 10 mm incision was made with a scalpel. A trocar 8.5 [place] cook catheter was inserted with real-time ultrasound guidance into the pleural fluid and positioned appropriately at about 20 cm shon. Red serosanguinous drainage was noted. Tidal'ing was appreciated. This is connected to a Pleur-Evac the adapter. Initially 300mL of drainage was appreciated with improvement in chest discomfort. Tube was sutured with 0 silk. Sterile dressing was applied. CXR pending. No complications. Patient tolerated the procedure well. Fluid studies ordered. Chest tube planned water seal but given minimal drainage will put to - 20cm H20 suction.
--- NOTE | 2023-06-05 13:04 | PC.NURSE ---
this RN found the patients oxygen saturation to be 90-91% on 4L via NC. patient denies any shortness of breath or chest pain. patient does not appear to be in any distress. this RN called Dr. Rangel to update him and he okayed for the patient to be transferred to the ICU.
--- NOTE | 2023-06-05 13:21 | P.CONS_ITS ---
History of Present Illness Consult details Chief complaint: SOB Narrative: Follow-up recommendations: Chest tube placed 8.5Fr. Put to -20cm H20 suction Okay to remove once patient has symptomatic relief and output < 200mL/day. Will likely need close outpatient follow-up if discharged for recurrent effusion within 1-2 weeks - contact pulmonary clinic or arrange outpatient thoracentesis with radiology. Fluid analysis sent LDH, protein, glucose, cell count and differential, culture AND cytology Recommend CT guided biopsy of PRICE lung mass when INR normalized (inpatient or outpatient) Discussed recommendations with Dr. galvez. Pulmonary available by phone ([phone]) and if still inpatient, will re- evaluate on 06/11 Meds Home Medications and Allergies Home Medications Medication Instructions Recorded Confirmed Type isosorbide dinitrate 30 mg tablet 30 mg PO DAILY ##0 09/15/11 06/05/23 History spironolactone 25 mg tablet 25 mg PO QDAY ##0 09/15/11 06/05/23 History losartan 25 mg tablet 25 mg PO QDAY ##0 06/02/12 06/05/23 History metoprolol succinate 50 mg 50 mg PO DAILY 09/23/18 06/05/23 History tablet,extended release 24 hr sotalol 80 mg tablet 80 mg PO BID 09/23/18 06/05/23 History aspirin 81 mg tablet,delayed 81 mg PO DAILY 10/06/18 06/05/23 History release (Adult Aspirin Regimen) atorvastatin 40 mg tablet 40 mg PO DAILY #90 tabs 03/21/23 06/05/23 Rx Asmanex HFA 200 mcg/actuation 1 puff inhalation BID #13 grams 05/08/23 06/05/23 Rx aerosol inhaler (mometasone) inhalational spacing device #1 ea 05/08/23 06/05/23 Rx (BreatheRite MDI Spacer) albuterol sulfate 90 mcg/actuation 2 puff inhalation Q6H PRN 05/19/23 06/05/23 Rx aerosol inhaler shortness of breath or wheezing #8.5 grams warfarin 2.5 mg tablet 2.5 mg PO .COMPLEX #100 tabs 05/20/23 06/05/23 Rx Adult Oxygen mask #1 ea 06/04/23 06/05/23 Rx Allergies Allergy/AdvReac Type Severity Reaction Status Date / Time adhesive Allergy Mild BLISTERS Verified 05/19/23 08:44 AND RASH lisinopril AdvReac Mild COUGH Verified 05/19/23 08:44 Exam Vital Signs (past 8 hours): - 06/05/23 05:30 06/05/23 05:30 06/05/23 06:00 Pulse Rate 76 77 Respiratory Rate 19 18 Blood Pressure 89/50 L Pulse Oximetry 97 97 Oxygen Delivery Method Nasal Cannula Nasal Cannula Oxygen Flow Rate 4 4 06/05/23 06:00 06/05/23 06:30 06/05/23 06:31 Pulse Rate 75 75 Respiratory Rate 19 19 Blood Pressure 97/56 L Pulse Oximetry 96 96 Oxygen Delivery Method Nasal Cannula Nasal Cannula Oxygen Flow Rate 4 4 06/05/23 06:31 06/05/23 07:00 06/05/23 07:00 Pulse Rate 80 Respiratory Rate 23 Blood Pressure 84/52 L 94/57 L Pulse Oximetry 96 Oxygen Delivery Method Nasal Cannula Oxygen Flow Rate 4 06/05/23 07:30 06/05/23 07:30 06/05/23 08:00 Pulse Rate 80 81 Respiratory Rate 25 H 26 H Blood Pressure 99/57 L Pulse Oximetry 95 95 Oxygen Delivery Method Nasal Cannula Oxygen Flow Rate 4 06/05/23 08:00 06/05/23 08:30 06/05/23 09:00 Pulse Rate 82 90 Respiratory Rate 28 H 29 H Blood Pressure 108/55 L Pulse Oximetry 93 94 Oxygen Delivery Method Oxygen Flow Rate 06/05/23 09:01 06/05/23 09:01 06/05/23 09:30 Pulse Rate 90 93 H Respiratory Rate 29 H 35 H Blood Pressure 106/54 L Pulse Oximetry 94 96 Oxygen Delivery Method Oxygen Flow Rate 06/05/23 09:30 06/05/23 09:47 06/05/23 10:00 Pulse Rate Respiratory Rate Blood Pressure 105/56 L 106/51 L Pulse Oximetry Oxygen Delivery Method Nasal Cannula Oxygen Flow Rate 06/05/23 10:00 06/05/23 10:30 06/05/23 10:30 Pulse Rate 92 H 88 Respiratory Rate 31 H 32 H Blood Pressure 98/55 L Pulse Oximetry 94 94 Oxygen Delivery Method Oxygen Flow Rate 06/05/23 11:00 06/05/23 11:00 06/05/23 11:17 Pulse Rate 83 82 Respiratory Rate 29 H Blood Pressure 100/55 L 108/55 L Pulse Oximetry 94 Oxygen Delivery Method Oxygen Flow Rate 06/05/23 11:30 06/05/23 11:30 06/05/23 11:45 Pulse Rate 81 82 Respiratory Rate 21 28 H Blood Pressure 76/52 L Pulse Oximetry 94 94 Oxygen Delivery Method Oxygen Flow Rate 06/05/23 11:45 06/05/23 11:54 06/05/23 11:54 Pulse Rate 82 Respiratory Rate 28 H Blood Pressure 77/52 L 84/51 L Pulse Oximetry 95 Oxygen Delivery Method Nasal Cannula Oxygen Flow Rate 4 06/05/23 12:00 06/05/23 12:00 06/05/23 12:15 Pulse Rate 83 84 Respiratory Rate 27 H 29 H Blood Pressure 100/55 L Pulse Oximetry 95 94 Oxygen Delivery Method Oxygen Flow Rate 06/05/23 12:15 06/05/23 12:30 06/05/23 12:30 Pulse Rate 85 Respiratory Rate 28 H Blood Pressure 98/54 L 110/63 Pulse Oximetry 94 Oxygen Delivery Method Oxygen Flow Rate 06/05/23 12:45 06/05/23 12:45 06/05/23 12:51 Pulse Rate 82 80 Respiratory Rate 40 H 34 H Blood Pressure 92/55 L Pulse Oximetry 93 93 Oxygen Delivery Method Nasal Cannula Oxygen Flow Rate 4 06/05/23 12:51 Pulse Rate Respiratory Rate Blood Pressure 95/55 L Pulse Oximetry Oxygen Delivery Method Oxygen Flow Rate Oxygen Delivery Method Nasal Cannula Oxygen Flow Rate 4 Objective Labs 06/05/23 06:50 06/05/23 06:50 Labs: Laboratory Results - last 24 hr 06/04/23 06/05/23 00:15 06:50 WBC 12.1 H 11.6 H RBC 4.29 L 4.18 L Hgb 13.3 L 12.9 L Hct 39.5 L 38.4 L MCV 92.2 92.0 MCH 31.0 30.8 MCHC 33.6 33.5 RDW 14.0 13.9 Plt Count 256 257 Neut % (Auto) 74.3 74.3 Lymph % (Auto) 13.6 L 14.2 L [place] % (Auto) 10.3 9.4 Eos % (Auto) 1.2 L 1.4 L Baso % (Auto) 0.6 0.7 Neut # (Auto) 9000 H 8600 H Lymph # (Auto) 1600 1600 [place] # (Auto) 1200 H 1100 H Eos # (Auto) 100 200 Baso # (Auto) 100 100 PT 131.6 H 96.4 H D INR 11.2 H* 8.2 H* APTT 55 H Sodium 133 L Potassium 4.4 Chloride 100 Carbon Dioxide 24 BUN 48 H Creatinine 2.04 H Estimated GFR 32 L BUN/Creatinine Ratio 23.5 H Glucose 90 Lactate 1.8 Calcium 9.2 Magnesium 2.0 Total Creatine Kinase 35 L Troponin I 0.016 NT-Pro-B Natriuret Pep 1770 H 1430 H Lipase 225 Procalcitonin 0.12 PFSH Medical History Positive FIT (fecal immunochemical test) Normocytic anemia Chronic pain of both shoulders Cranial somatic dysfunction Cervical somatic dysfunction Neck stiffness Actinic keratoses Excessive cerumen in both ear canals Right medial knee pain Insomnia secondary to chronic pain Chronic neck pain Chicken pox (1975) Measles Mumps Ankle pain (2016) Foot pain Shoulder pain Sleep apnea (~1999) Colon polyps Kidney stones Hearing loss Cardiac arrhythmia (~2014) Cardiac tumor (~2001) Pacemaker (1998) Atrial fibrillation Coronary artery disease (1998) Hypertension Hyperlipidemia Surgical History History of right-sided carotid endarterectomy (~09/2010) AICD (automatic cardioverter/defibrillator) present (12/29/15) History of colonoscopy with polypectomy (07/08/14) History of colonoscopy with polypectomy (05/24/09) Status post carotid surgery (1998) Anesthesia Status post cardiac surgery (~2001) S/P CABG (coronary artery bypass graft) (1998) Status post placement of cardiac pacemaker (~2001) Family History Brother Age: 79 Heart disease Child Liver failure Father Heart disease Grandfather Heart disease Mother MS (multiple sclerosis) Grandmother No problems noted. Sister Stomach cancer Sister Heart disease Social History household members: none Tobacco & Substance Use Smoking Status: Former smoker alcohol intake: never
[2023-06-05] MEDS: SODIUM CHLORIDE 0.9% 500 ML IV (13:43)
[2023-06-05 14:44] LABS: Body Fluid Appearance CLOUDY; Body Fluid Color RED
[2023-06-05 14:45] LABS: Body Fluid Clotted? NO CLOTS PRESENT; Body Fluid Tot Nucleated Cells 2493 /uL
[2023-06-05 14:46] LABS: Mononuclear WBC Body Fluid 35 %; Polynuclear WBC Body Fluid 65 %
--- NOTE | 2023-06-05 18:51 | PM.HP.1 ---
History of Present Illness History of Present Illness Date Patient Seen: 06/05/23 Time Patient Seen: 18:51 Chief complaint: SOB Narrative: Per overnight provider, The pt was discharged from our facility after finding a left sided pleural effusion and having a thorocentesis. He was discharged home on 2 lpm and has been having progressive dyspnea over the past two weeks since being discharged. He denies any CP, chest pressure, productive sputum, ext. edema, change in meds or appetite. He has a p-ox at home and states that it has been reading in the 80's prior to presentation to the ER. The pleural fluid did not make it to the lab on last hospitalization, CT chest was reviewed by myself which did showed marked honeycombing, scarring, and possible PRICE mass. The pt was supposedly going to see the chicken and fish butcher tomorrow in the clinic for a f/up. The pt did not go to the PCP office f/up post hospitalization. Patient continues to feel short of breath this afternoon, he was seen after pulmonary consultation who placed a pigtail catheter. [facility] Medical History Positive FIT (fecal immunochemical test) Normocytic anemia Chronic pain of both shoulders Cranial somatic dysfunction Cervical somatic dysfunction Neck stiffness Actinic keratoses Excessive cerumen in both ear canals Right medial knee pain Insomnia secondary to chronic pain Chronic neck pain Chicken pox (1975) Measles Mumps Ankle pain (2016) Foot pain Shoulder pain Sleep apnea (~1999) Colon polyps Kidney stones Hearing loss Cardiac arrhythmia (~2014) Cardiac tumor (~2001) Pacemaker (1998) Atrial fibrillation Coronary artery disease (1998) Hypertension Hyperlipidemia Surgical History History of right-sided carotid endarterectomy (~09/2010) AICD (automatic cardioverter/defibrillator) present (12/29/15) History of colonoscopy with polypectomy (07/08/14) History of colonoscopy with polypectomy (05/24/09) Status post carotid surgery (1998) Anesthesia Status post cardiac surgery (~2001) S/P CABG (coronary artery bypass graft) (1998) Status post placement of cardiac pacemaker (~2001) Family History Brother Age: 79 Heart disease Child Liver failure Father Heart disease Grandfather Heart disease Mother MS (multiple sclerosis) Grandmother No problems noted. Sister Stomach cancer Sister Heart disease Social History household members: none Smoking Status: Former smoker alcohol intake: never Meds Home Medications and Allergies Home Medications Medication Instructions Recorded Confirmed Type isosorbide dinitrate 30 mg tablet 30 mg PO DAILY ##0 09/15/11 06/05/23 History spironolactone 25 mg tablet 25 mg PO QDAY ##0 09/15/11 06/05/23 History losartan 25 mg tablet 25 mg PO QDAY ##0 06/02/12 06/05/23 History metoprolol succinate 50 mg 50 mg PO DAILY 09/23/18 06/05/23 History tablet,extended release 24 hr sotalol 80 mg tablet 80 mg PO BID 09/23/18 06/05/23 History aspirin 81 mg tablet,delayed 81 mg PO DAILY 10/06/18 06/05/23 History release (Adult Aspirin Regimen) atorvastatin 40 mg tablet 40 mg PO DAILY #90 tabs 03/21/23 06/05/23 Rx Asmanex HFA 200 mcg/actuation 1 puff inhalation BID #13 grams 05/08/23 06/05/23 Rx aerosol inhaler (mometasone) inhalational spacing device #1 ea 05/08/23 06/05/23 Rx (BreatheRite MDI Spacer) albuterol sulfate 90 mcg/actuation 2 puff inhalation Q6H PRN 05/19/23 06/05/23 Rx aerosol inhaler shortness of breath or wheezing #8.5 grams warfarin 2.5 mg tablet 2.5 mg PO .COMPLEX #100 tabs 05/20/23 06/05/23 Rx Adult Oxygen mask #1 ea 06/04/23 06/05/23 Rx Allergies Allergy/AdvReac Type Severity Reaction Status Date / Time adhesive Allergy Mild BLISTERS Verified 05/19/23 08:44 AND RASH lisinopril AdvReac Mild COUGH Verified 05/19/23 08:44 Review of Systems Review of Systems Narrative: All other systems reviewed with the patient and are negative unless otherwise stated. Exam Vital Signs (past 8 hours): - 06/05/23 11:00 06/05/23 11:00 06/05/23 11:17 Temperature Pulse Rate 83 82 Respiratory Rate 29 H Blood Pressure 100/55 L 108/55 L Pulse Oximetry 94 Oxygen Delivery Method Oxygen Flow Rate 06/05/23 11:30 06/05/23 11:30 06/05/23 11:45 Temperature Pulse Rate 81 82 Respiratory Rate 21 28 H Blood Pressure 76/52 L Pulse Oximetry 94 94 Oxygen Delivery Method Oxygen Flow Rate 06/05/23 11:45 06/05/23 11:54 06/05/23 11:54 Temperature Pulse Rate 82 Respiratory Rate 28 H Blood Pressure 77/52 L 84/51 L Pulse Oximetry 95 Oxygen Delivery Method Nasal Cannula Oxygen Flow Rate 4 06/05/23 12:00 06/05/23 12:00 06/05/23 12:15 Temperature Pulse Rate 83 84 Respiratory Rate 27 H 29 H Blood Pressure 100/55 L Pulse Oximetry 95 94 Oxygen Delivery Method Oxygen Flow Rate 06/05/23 12:15 06/05/23 12:30 06/05/23 12:30 Temperature Pulse Rate 85 Respiratory Rate 28 H Blood Pressure 98/54 L 110/63 Pulse Oximetry 94 Oxygen Delivery Method Oxygen Flow Rate 06/05/23 12:45 06/05/23 12:45 06/05/23 12:51 Temperature Pulse Rate 82 80 Respiratory Rate 40 H 34 H Blood Pressure 92/55 L Pulse Oximetry 93 93 Oxygen Delivery Method Nasal Cannula Oxygen Flow Rate 4 06/05/23 12:51 06/05/23 13:00 06/05/23 13:01 Temperature Pulse Rate 80 Respiratory Rate 32 H Blood Pressure 95/55 L 96/53 L Pulse Oximetry 92 Oxygen Delivery Method Nasal Cannula Oxygen Flow Rate 4 06/05/23 13:01 06/05/23 13:15 06/05/23 13:33 Temperature 97.4 F L Pulse Rate 79 77 76 Respiratory Rate 31 H 24 23 Blood Pressure 87/51 L Pulse Oximetry 92 91 93 Oxygen Delivery Method Nasal Cannula Nasal Cannula Oxygen Flow Rate 4 4 4 06/05/23 13:40 06/05/23 13:40 06/05/23 13:42 Temperature Pulse Rate 95 H Respiratory Rate 36 H Blood Pressure 89/51 L 89/50 L Pulse Oximetry 91 Oxygen Delivery Method Oxygen Flow Rate 06/05/23 13:42 06/05/23 14:00 06/05/23 14:00 Temperature Pulse Rate 80 77 Respiratory Rate 28 H 34 H Blood Pressure Pulse Oximetry 89 L 91 Oxygen Delivery Method Nasal Cannula Oxygen Flow Rate 06/05/23 14:00 06/05/23 14:30 06/05/23 14:31 Temperature Pulse Rate 80 80 Respiratory Rate 39 H 42 H Blood Pressure 92/54 L Pulse Oximetry 92 92 Oxygen Delivery Method Oxygen Flow Rate 06/05/23 14:31 06/05/23 15:00 06/05/23 15:00 Temperature Pulse Rate 77 Respiratory Rate 39 H Blood Pressure 93/54 L Pulse Oximetry 91 92 Oxygen Delivery Method Nasal Cannula Oxygen Flow Rate 4 06/05/23 15:00 06/05/23 15:30 06/05/23 15:31 Temperature Pulse Rate 85 Respiratory Rate 63 H Blood Pressure 91/55 L 112/58 L Pulse Oximetry 86 L Oxygen Delivery Method Oxygen Flow Rate 06/05/23 15:31 06/05/23 16:00 06/05/23 16:00 Temperature Pulse Rate 85 73 Respiratory Rate 30 H 20 Blood Pressure 91/52 L Pulse Oximetry 87 L 91 Oxygen Delivery Method Oxygen Flow Rate 06/05/23 16:30 06/05/23 16:30 06/05/23 17:00 Temperature Pulse Rate 70 75 Respiratory Rate 19 21 Blood Pressure 94/52 L Pulse Oximetry 92 93 Oxygen Delivery Method Oxygen Flow Rate 06/05/23 17:00 Temperature Pulse Rate Respiratory Rate Blood Pressure 102/55 L Pulse Oximetry Oxygen Delivery Method Oxygen Flow Rate Oxygen Delivery Method Nasal Cannula Oxygen Flow Rate 4 Narrative Exam Narrative: GEN: no acute distress, on O2 HEENT: moist mucous membranes, PERRL NECK: trachea midline, no JVD CV: regular rate and rhythm, no murmurs PULM: diffuse fine crackles, absent left basilar breath sounds ABD: soft, nontender, nondistended, no organomegaly EXT: warm and well perfused with no edema NEURO: awake, alert, oriented, no focal deficits Objective Labs 06/05/23 06:50 06/05/23 06:50 Labs: Laboratory Results - last 24 hr 06/04/23 06/05/23 06/05/23 00:15 06:50 12:37 WBC 12.1 H 11.6 H RBC 4.29 L 4.18 L Hgb 13.3 L 12.9 L Hct 39.5 L 38.4 L MCV 92.2 92.0 MCH 31.0 30.8 MCHC 33.6 33.5 RDW 14.0 13.9 Plt Count 256 257 Neut % (Auto) 74.3 74.3 Lymph % (Auto) 13.6 L 14.2 L [place] % (Auto) 10.3 9.4 Eos % (Auto) 1.2 L 1.4 L Baso % (Auto) 0.6 0.7 Neut # (Auto) 9000 H 8600 H Lymph # (Auto) 1600 1600 [place] # (Auto) 1200 H 1100 H Eos # (Auto) 100 200 Baso # (Auto) 100 100 PT 131.6 H 96.4 H D INR 11.2 H* 8.2 H* APTT 55 H Sodium 133 L Potassium 4.4 Chloride 100 Carbon Dioxide 24 BUN 48 H Creatinine 2.04 H Estimated GFR 32 L BUN/Creatinine Ratio 23.5 H Glucose 90 Lactate 1.8 Calcium 9.2 Magnesium 2.0 Total Creatine Kinase 35 L Troponin I 0.016 NT-Pro-B Natriuret Pep 1770 H 1430 H Lipase 225 Procalcitonin 0.12 Fluid Color Red Fluid Appearance Cloudy Fluid RBC [id number] Fld Tot Nucleated Cell 2493 Fluid Polynuclear WBCs 65 Fluid Mononuclear WBCs 35 Fluid Eosinophils Not Reportable Fluid Other Cells Not Reportable Body Fluid Clot No clots present Assessment & Plan Assessment & Plan narrative: # possible new-onset pulmonary fibrosis and/or lung cancer with recurrent L pleural effusion -CT chest with multiple air bronchograms, honeycombing, fibrotic changes and masslike density of PRICE last admission. Adenopathy on CT and mass concerning for lung cancer per pulm -please see separate consultation from chicken and fish butcher Dr. Rangel, coordinated plan of care with him today. Now s/p pigtail catheter placement. -continue to hold coumadin, recommended for IR guided biopsy of lung mass when INR normal. -hold antibiotics pending fluid study results. -will likely need home oxygen -started on steroids for possible pulmonary fibrosis flare. -suspect hypovolemic at this time with KALE # acute hypoxic resp failure -likely due to PF and fluid reaccumulation -continue to monitor with fluids given for KALE -Echo ordered to further assess cardiac status as last echo was >1 year ago. #KALE - suspect due to overdiuresis. - given 500 mL fluid bolus today, continue to monitor while holding home diuretic. 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 -holding losartan due to soft BP # paroxysmal A-fib with supratherapeutic INR -continue sotalol and metoprolol per home routine -hold warfarin # CAD s/p CABG x4 -continue aspirin # HTN -holding losartan with KALE # HLD -continue lipitor Code status is Full code. DVT prophylaxis with warfarin. Proxy is carter Lugo. I have reviewed home meds and used all available resources to reconcile the home meds. Dispo: Home likely in maybe a couple of days, will get PT/OT evaluations and may need SNF Discussed with overnight provider, case management and pulmonology extensively to formulate the above assessment and plan. Quality VTE Deep Vein Thrombosis/Pulmonary Embolism Present on Admission: No
--- NOTE | 2023-06-05 18:54 | PC.ADMIT ---
[address] Admission Note: Pt arrived via gurney from ED, transferred to bed via slide board, with chest tube in place to water seal and connected to LIS -20. Pt oriented to room and call light system, Dr Garrido at bedside, 500 mL bolus administered for hypotension. Bed low and locked, call light within reach, will continue to monitor The patient,Madison Murillo,78 y/o, was given written information regarding hospital policies, unit procedures and contact persons. Patient's smoking status: Former smoker. Vital Signs - 8 hr 06/05/23 11:00 06/05/23 11:00 06/05/23 11:17 Temperature Pulse Rate 83 82 Respiratory Rate 29 H Blood Pressure 100/55 L 108/55 L Pulse Oximetry 94 Oxygen Delivery Method Oxygen Flow Rate 06/05/23 11:30 06/05/23 11:30 06/05/23 11:45 Temperature Pulse Rate 81 82 Respiratory Rate 21 28 H Blood Pressure 76/52 L Pulse Oximetry 94 94 Oxygen Delivery Method Oxygen Flow Rate 06/05/23 11:45 06/05/23 11:54 06/05/23 11:54 Temperature Pulse Rate 82 Respiratory Rate 28 H Blood Pressure 77/52 L 84/51 L Pulse Oximetry 95 Oxygen Delivery Method Nasal Cannula Oxygen Flow Rate 4 06/05/23 12:00 06/05/23 12:00 06/05/23 12:15 Temperature Pulse Rate 83 84 Respiratory Rate 27 H 29 H Blood Pressure 100/55 L Pulse Oximetry 95 94 Oxygen Delivery Method Oxygen Flow Rate 06/05/23 12:15 06/05/23 12:30 06/05/23 12:30 Temperature Pulse Rate 85 Respiratory Rate 28 H Blood Pressure 98/54 L 110/63 Pulse Oximetry 94 Oxygen Delivery Method Oxygen Flow Rate 06/05/23 12:45 06/05/23 12:45 06/05/23 12:51 Temperature Pulse Rate 82 80 Respiratory Rate 40 H 34 H Blood Pressure 92/55 L Pulse Oximetry 93 93 Oxygen Delivery Method Nasal Cannula Oxygen Flow Rate 4 06/05/23 12:51 06/05/23 13:00 06/05/23 13:01 Temperature Pulse Rate 80 Respiratory Rate 32 H Blood Pressure 95/55 L 96/53 L Pulse Oximetry 92 Oxygen Delivery Method Nasal Cannula Oxygen Flow Rate 4 06/05/23 13:01 06/05/23 13:15 06/05/23 13:33 Temperature 97.4 F L Pulse Rate 79 77 76 Respiratory Rate 31 H 24 23 Blood Pressure 87/51 L Pulse Oximetry 92 91 93 Oxygen Delivery Method Nasal Cannula Nasal Cannula Oxygen Flow Rate 4 4 4 06/05/23 13:40 06/05/23 13:40 06/05/23 13:42 Temperature Pulse Rate 95 H Respiratory Rate 36 H Blood Pressure 89/51 L 89/50 L Pulse Oximetry 91 Oxygen Delivery Method Oxygen Flow Rate 06/05/23 13:42 06/05/23 14:00 06/05/23 14:00 Temperature Pulse Rate 80 77 Respiratory Rate 28 H 34 H Blood Pressure Pulse Oximetry 89 L 91 Oxygen Delivery Method Nasal Cannula Oxygen Flow Rate 06/05/23 14:00 06/05/23 14:30 06/05/23 14:31 Temperature Pulse Rate 80 80 Respiratory Rate 39 H 42 H Blood Pressure 92/54 L Pulse Oximetry 92 92 Oxygen Delivery Method Oxygen Flow Rate 06/05/23 14:31 06/05/23 15:00 06/05/23 15:00 Temperature Pulse Rate 77 Respiratory Rate 39 H Blood Pressure 93/54 L Pulse Oximetry 91 92 Oxygen Delivery Method Nasal Cannula Oxygen Flow Rate 4 06/05/23 15:00 06/05/23 15:30 06/05/23 15:31 Temperature Pulse Rate 85 Respiratory Rate 63 H Blood Pressure 91/55 L 112/58 L Pulse Oximetry 86 L Oxygen Delivery Method Oxygen Flow Rate 06/05/23 15:31 06/05/23 16:00 06/05/23 16:00 Temperature Pulse Rate 85 73 Respiratory Rate 30 H 20 Blood Pressure 91/52 L Pulse Oximetry 87 L 91 Oxygen Delivery Method Oxygen Flow Rate 06/05/23 16:30 06/05/23 16:30 06/05/23 17:00 Temperature Pulse Rate 70 75 Respiratory Rate 19 21 Blood Pressure 94/52 L Pulse Oximetry 92 93 Oxygen Delivery Method Oxygen Flow Rate 06/05/23 17:00 Temperature Pulse Rate Respiratory Rate Blood Pressure 102/55 L Pulse Oximetry Oxygen Delivery Method Oxygen Flow Rate
[2023-06-05] MEDS: SENNOSIDES 8.6 MG TABLET 17.2 MG PO (21:12)
[2023-06-06] VITALS (54 sets, daily range): BP systolic 87–140; BP diastolic 53–65; PULSE 60–82; RESP 16–36; TEMP 35.9–36.8; O2SAT 91–97
[2023-06-06 05:06] LABS: Add Manual Diff / Slide Review NO; Basophils Absolute Auto 0 /uL (0-100); Basophils Percent Auto 0.1 % (0-2); Eosinophils Absolute Auto 0 /uL (0-450); Hematocrit 36.7 % (41-53); Hemoglobin 12.4 g/dL (13.5-17.5); Lymphocytes Absolute Auto 1000 /uL (1100-4500); Lymphocytes Percent Auto 8.1 % (25-40); Mean Corpuscular HGB Conc 33.8 % (30-36); Mean Corpuscular Hemoglobin 31.1 PG (26-34); Mean Corpuscular Volume 91.8 fL (80-100); Monocytes Absolute Auto 1000 /uL (0-900); Neutrophils Absolute Auto 10600 /uL (1500-7000); Neutrophils Percent Auto 83.8 % (50-75); Platelet Count 232 X10^3/uL (150-400); Red Cell Distribution Width 13.8 % (11.6-14.8); White Blood Cell Count 12.7 X10^3/uL (4.5-11.0)
[2023-06-06 05:09] LABS: INR 2.4 (0.9-1.3); Prothrombin Time 27.8 SECONDS (9.4-12.5)
[2023-06-06 05:17] LABS: Alanine Aminotransferase 23 IU/L (<50); Albumin 3.2 g/dL (3.5-5.0); Alkaline Phosphatase 67 U/L (38-126); Aspartate Aminotransferase 29 IU/L (17-59); Bilirubin Total 0.6 mg/dL (0.2-1.3); Blood Urea Nitrogen 50 mg/dL (9-20); Carbon Dioxide 26 mmol/L (22-32); Chloride 101 mmol/L (98-107); Estimated Glomerular Filt Rate 53 mL/min (>60); Globulin 3.1 g/dL (1.7-4.1); Glucose 114 mg/dL (80-110); HEMOLYSIS < 15 (0-50); Magnesium 1.9 mg/dL (1.6-2.3); Potassium 4.4 mmol/L (3.4-5.1); Sodium 133 mmol/L (137-145); Total Protein 6.3 g/dL (6.3-8.2)
[2023-06-06] MEDS: PANTOPRAZOLE DR 20 MG TABLET PO (06:40)
[2023-06-06] MEDS: ISOSORBIDE MONONITRATE ER 30 MG TABLET PO (07:36)
[2023-06-06] MEDS: predniSONE 20 MG TABLET 60 MG PO (08:29)
[2023-06-06] MEDS: ATORVASTATIN 20 MG TABLET 40 MG PO (08:29)
[2023-06-06] MEDS: METOPROLOL ER 50 MG TABLET PO (08:29)
[2023-06-06] MEDS: SOTALOL 80 MG TABLET PO ×2 (08:29→21:03)
[2023-06-06] MEDS: BUDESONIDE 0.5 MG/2 ML NEB INH ×2 (08:30→19:05)
--- NOTE | 2023-06-06 13:57 | P.PN_ITS ---
Subjective Subjective Interval history: 78 year old male admitted with acute on chronic respiratory failure with hypoxia, due to pulmonary fibrosis, possible lung mass with recurrent L pleural effusion s/p pigtail placement by pulmonology. Patient reports improvement today in overall symptoms, though is still on 4L of O2. There continues to be bloody drainage from his pigtail. INR improved to 2.4 today. Cr improved to 1.35 from 2 yesterday. Exam Vital Signs (past 8 hours): - 06/06/23 06:00 06/06/23 06:30 06/06/23 07:00 Temperature Pulse Rate 66 67 Respiratory Rate 19 22 Blood Pressure Pulse Oximetry 94 95 Oxygen Delivery Method Nasal Cannula Oxygen Flow Rate 06/06/23 07:00 06/06/23 07:00 06/06/23 07:30 Temperature Pulse Rate 66 62 Respiratory Rate 24 20 Blood Pressure Pulse Oximetry 93 96 93 Oxygen Delivery Method Nasal Cannula Oxygen Flow Rate 3 06/06/23 08:00 06/06/23 08:00 06/06/23 08:03 Temperature 98.1 F Pulse Rate 64 63 64 Respiratory Rate 20 25 H 24 Blood Pressure 107/54 L Pulse Oximetry 97 97 97 Oxygen Delivery Method Oxygen Flow Rate 4 06/06/23 08:03 06/06/23 08:29 06/06/23 08:30 Temperature Pulse Rate 71 72 Respiratory Rate 25 H Blood Pressure 107/54 L 107/54 L Pulse Oximetry 91 Oxygen Delivery Method Oxygen Flow Rate 06/06/23 09:00 06/06/23 09:04 06/06/23 09:30 Temperature Pulse Rate 78 79 80 Respiratory Rate 31 H 16 29 H Blood Pressure Pulse Oximetry 93 94 94 Oxygen Delivery Method Nasal Cannula Oxygen Flow Rate 3 06/06/23 09:43 06/06/23 09:43 06/06/23 09:58 Temperature Pulse Rate 78 75 Respiratory Rate 36 H Blood Pressure 87/54 L 87/54 L Pulse Oximetry 93 Oxygen Delivery Method Oxygen Flow Rate 06/06/23 10:00 06/06/23 10:02 06/06/23 10:02 Temperature Pulse Rate 75 75 Respiratory Rate 31 H 32 H Blood Pressure 88/53 L Pulse Oximetry 92 92 Oxygen Delivery Method Oxygen Flow Rate 06/06/23 10:30 06/06/23 11:00 06/06/23 11:00 Temperature Pulse Rate 76 69 Respiratory Rate 26 H 19 Blood Pressure Pulse Oximetry 94 93 93 Oxygen Delivery Method Nasal Cannula Oxygen Flow Rate 3 06/06/23 11:30 06/06/23 12:00 06/06/23 13:49 Temperature Pulse Rate 72 69 78 Respiratory Rate 26 H 25 H 28 H Blood Pressure 111/55 L Pulse Oximetry 93 91 97 Oxygen Delivery Method Oxygen Flow Rate 4 Oxygen Delivery Method Nasal Cannula Oxygen Flow Rate 4 Narrative Exam Narrative: GEN: no acute distress, on O2 HEENT: moist mucous membranes, PERRL NECK: trachea midline, no JVD CV: regular rate and rhythm, no murmurs PULM: diffuse fine crackles, absent left basilar breath sounds ABD: soft, nontender, nondistended, no organomegaly EXT: warm and well perfused with no edema NEURO: awake, alert, oriented, no focal deficits Objective Labs 06/06/23 04:21 06/06/23 04:21 Labs: Laboratory Results - last 24 hr 06/05/23 06/06/23 12:37 04:21 WBC 12.7 H RBC 4.00 L Hgb 12.4 L Hct 36.7 L MCV 91.8 MCH 31.1 MCHC 33.8 RDW 13.8 Plt Count 232 Neut % (Auto) 83.8 H Lymph % (Auto) 8.1 L [place] % (Auto) 8.0 Eos % (Auto) 0.0 L Baso % (Auto) 0.1 Neut # (Auto) 40427 H Lymph # (Auto) 1000 L [place] # (Auto) 1000 H Eos # (Auto) 0 Baso # (Auto) 0 PT 27.8 H D INR 2.4 H Sodium 133 L Potassium 4.4 Chloride 101 Carbon Dioxide 26 BUN 50 H Creatinine 1.35 H Estimated GFR 53 L BUN/Creatinine Ratio 37.0 H Glucose 114 H Calcium 9.0 Magnesium 1.9 Total Bilirubin 0.6 AST 29 ALT 23 Alkaline Phosphatase 67 Total Protein 6.3 Albumin 3.2 L Globulin 3.1 Albumin/Globulin Ratio 1.0 Fluid Color Red Fluid Appearance Cloudy Fluid RBC [id number] Fld Tot Nucleated Cell 2493 Fluid Polynuclear WBCs 65 Fluid Mononuclear WBCs 35 Fluid Eosinophils Not Reportable Fluid Other Cells Not Reportable Body Fluid Clot No clots present Ref Test (Refrig) Comment PFSH Medical History Positive FIT (fecal immunochemical test) Normocytic anemia Chronic pain of both shoulders Cranial somatic dysfunction Cervical somatic dysfunction Neck stiffness Actinic keratoses Excessive cerumen in both ear canals Right medial knee pain Insomnia secondary to chronic pain Chronic neck pain Chicken pox (1975) Measles Mumps Ankle pain (2016) Foot pain Shoulder pain Sleep apnea (~1999) Colon polyps Kidney stones Hearing loss Cardiac arrhythmia (~2014) Cardiac tumor (~2001) Pacemaker (1998) Atrial fibrillation Coronary artery disease (1998) Hypertension Hyperlipidemia Surgical History History of right-sided carotid endarterectomy (~09/2010) AICD (automatic cardioverter/defibrillator) present (12/29/15) History of colonoscopy with polypectomy (07/08/14) History of colonoscopy with polypectomy (05/24/09) Status post carotid surgery (1998) Anesthesia Status post cardiac surgery (~2001) S/P CABG (coronary artery bypass graft) (1998) Status post placement of cardiac pacemaker (~2001) Family History Brother Age: 79 Heart disease Child Liver failure Father Heart disease Grandfather Heart disease Mother MS (multiple sclerosis) Grandmother No problems noted. Sister Stomach cancer Sister Heart disease Social History household members: none Smoking Status: Former smoker alcohol intake: never Assessment & Plan Assessment & Plan narrative: # possible new-onset pulmonary fibrosis and/or lung cancer with recurrent L pleural effusion -CT chest with multiple air bronchograms, honeycombing, fibrotic changes and masslike density of PRICE last admission. Adenopathy on CT and mass concerning for lung cancer per pulm -please see separate consultation from ballistics laboratory gunsmith Dr. Rangel, coordinated plan of care with him. Now s/p pigtail catheter placement yesterday. Can change to water seal today. -continue to hold coumadin, recommended for IR guided biopsy of lung mass when INR normal. INR improved to 2.4 today. -hold antibiotics pending fluid study results, currently gram stain negative for bacteria. Many WBC seen. -may need increased home O2 on discharge, though not entirely clear. -started on steroids for possible pulmonary fibrosis flare at 60 mg daily. -suspect hypovolemic at this time with KALE, improved with IV fluids. # acute hypoxic resp failure -likely due to PF and fluid reaccumulation -continue to monitor with fluids given for KALE -Echo ordered to further assess cardiac status as last echo was >1 year ago. Showed reduced EF as noted below #KALE - suspect due to overdiuresis. - given 500 mL fluid bolus x1 continue to monitor while holding home diuretic. 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 -holding losartan due to soft BP -Echo with slight decrease in EF to approx 25%. # paroxysmal A-fib with supratherapeutic INR -continue sotalol and metoprolol per home routine -hold warfarin # CAD s/p CABG x4 -continue aspirin # HTN -holding losartan with KALE and mild hypotension # HLD -continue lipitor Code status is Full code. DVT prophylaxis with warfarin. Proxy is carter Lugo. I have reviewed home meds and used all available resources to reconcile the home meds. Dispo: Home likely in maybe a couple of days, will get PT/OT evaluations and may need SNF Discussed with case management to formulate the above assessment and plan. Quality VTE Deep Vein Thrombosis/Pulmonary Embolism Present on Admission: No
--- NOTE | 2023-06-06 14:16 | CM.DANOTE ---
Reviewed EMR and team rounds for pt's medical status. Met with pt at bedside to introduce self and role. Pt found to be alert, sitting upright in bed, SOB with talking, even with 4LO2 running. Pt shares that his 1 1/2 years ago, lives alone, and [place]. He's expressing concerns about possibly returning home right after d/c especially since he was just admitted and discharged here 2-weeks ago for the same dx and symptoms. Payor: Andrea Munoz. PCP: Jason Cruz Pt is a 78 year-old M who presented at the ED on 06/05/23 after having just been inpt 2-weeks ago from 05/21/23-05/22/23 for a left-sided plueral effufustion and thoracentesis. He was d/c'd with 2LO2 at that time. Over the last 2-weeks since d/c, he's been experiencing worsening shortness of breath and fatigue. CT imaging in the ED showed a lung mass, dx also includes probable pulmonary fibrosis, Afib. plan is for it to be biopsied through IR during this hospital stay. Pt had a chest tube placed, was admitted to the floor for continued O2 monitoring, IV steroids, and possibly another thoracentesis. Possible d/c in 2-days, most likely SNF rehab. DCP will continue to follow and assist with final PT/OT recommendations, most likely SNF. Discharge Planning/Care Management CM Discharge Assessment Start: 06/06/23 14:04 Freq: Status: Active Protocol: Document 06/06/23 14:13 DPL (Rec: 06/06/23 14:16 DPL [id number]) Discharge Planning Assessment Assigned [employer] Stock Clerk ALEENA Jorgensen Advance Directives? Yes Advance Directives on File No History Provided By Patient,Medical Record Has Patient been admitted in last 30 Yes days? Comment Pt was last admitted from -05/22/23. Prior Living Arrangements House Household Members none Comment Pt's 1 1/2 years ago . He lives alone, has adult children that live down south. Type of transporation used prior to Drives own vehicle admit Independent with ADL's Yes Is patient alert and oriented? Yes Community Services used prior to Oxygen Therapy admission: DME Already Rented / Owned Oxygen Comment [facility] Faxed No Comment Pending PT/OT evaluations, but likely SNF rehab. Discharge Plan [facility] Oxygen Therapy,Physical Therapy,Occupational Therapy Referrals Initiated Other Additional Comment Patient not medically stable as of yet, will monitor for final disposition recommendations. If patient plan is home with home health No : Has signed face to face form been completed? If patient plan is SNF: Has PASSR been No completed? Whiteboard Updated in Patient Room with Yes name and ext. # of [employer] Stock Clerk Review Status In Process Please Provide Date Initial DC 06/06/23 Assessment Was Performed
--- NOTE | 2023-06-06 17:59 | PC.NURSE ---
ct to water seal with serosangenous drainage - 350cc his shift. Denies pain or discomfort with the chest tube.
[2023-06-07] VITALS (53 sets, daily range): BP systolic 94–164; BP diastolic 51–78; PULSE 61–93; RESP 16–58; TEMP 36.1–36.8; O2SAT 86–96
[2023-06-07 04:56] LABS: INR 1.7 (0.9-1.3); Prothrombin Time 19.6 SECONDS (9.4-12.5)
[2023-06-07 04:57] LABS: Add Manual Diff / Slide Review NO; Basophils Absolute Auto 0 /uL (0-100); Basophils Percent Auto 0.1 % (0-2); Eosinophils Absolute Auto 0 /uL (0-450); Eosinophils Percent Auto 0.2 % (2-4); Hematocrit 39.3 % (41-53); Hemoglobin 13.1 g/dL (13.5-17.5); Lymphocytes Absolute Auto 1200 /uL (1100-4500); Mean Corpuscular HGB Conc 33.2 % (30-36); Mean Corpuscular Hemoglobin 30.7 PG (26-34); Mean Corpuscular Volume 92.3 fL (80-100); Monocytes Absolute Auto 1100 /uL (0-900); Monocytes Percent Auto 8.3 % (3-14); Neutrophils Absolute Auto 11300 /uL (1500-7000); Neutrophils Percent Auto 82.4 % (50-75); Platelet Count 232 X10^3/uL (150-400); Red Blood Cell Count 4.26 X10^6/uL (4.5-5.9); White Blood Cell Count 13.7 X10^3/uL (4.5-11.0)
[2023-06-07 05:06] LABS: Alanine Aminotransferase 29 IU/L (<50); Albumin 3.3 g/dL (3.5-5.0); Albumin Globulin Ratio 1.1 (1.0-2.8); Alkaline Phosphatase 67 U/L (38-126); Aspartate Aminotransferase 31 IU/L (17-59); BUN Creatinine Ratio 39.3 (6-22); Bilirubin Total 0.7 mg/dL (0.2-1.3); Blood Urea Nitrogen 44 mg/dL (9-20); Calcium 8.8 mg/dL (8.4-10.2); Carbon Dioxide 25 mmol/L (22-32); Chloride 99 mmol/L (98-107); Estimated Glomerular Filt Rate > 60 mL/min (>60); Glucose 94 mg/dL (80-110); HEMOLYSIS < 15 (0-50); Magnesium 1.8 mg/dL (1.6-2.3); Potassium 4.2 mmol/L (3.4-5.1); Sodium 133 mmol/L (137-145); Total Protein 6.3 g/dL (6.3-8.2)
[2023-06-07] MEDS: ISOSORBIDE MONONITRATE ER 30 MG TABLET PO (05:27)
[2023-06-07] MEDS: PANTOPRAZOLE DR 20 MG TABLET PO (05:27)
--- NOTE | 2023-06-07 07:50 | DI.RAD.S_ITS ---
PROCEDURE: XR CHEST 1V INDICATIONS: still hypoxic after pigtail placed for L pleural effusion TECHNIQUE: One view of the chest was acquired. COMPARISON: [facility], CT, CT CHEST WO CON, 05/20/2023, 11:43. [facility], CR, XR CHEST 1V, 06/05/2023, 12:50. [facility], CR, XR CHEST 1V, 06/04/2023, 23:53. FINDINGS: Surgical changes and devices: Left cardiac generator device. Post median sternotomy. Multiple clips likely due to CABG. Left basilar pleural drain. Lungs and pleura: Consolidative opacity in the left lung is decreased. Mild bilateral patchy opacity, unchanged. Moderate left pleural effusion. No pneumothorax. Mediastinum: Mediastinal contours appear unchanged. Heart size is mostly obscured. Bones and chest wall: No suspicious bony lesions. Overlying soft tissues appear unremarkable. IMPRESSION: Mild improvement in the left lower lobe consolidative opacity. Left basilar pleural drain. Moderate left pleural effusion. Dictated by: Nima Briscoe M.D. on 06/07/2023 at 8:40 Approved by: Nima Briscoe M.D. on 06/07/2023 at 8:43
[2023-06-07] MEDS: ATORVASTATIN 20 MG TABLET 40 MG PO (08:37)
[2023-06-07] MEDS: METOPROLOL ER 50 MG TABLET PO (08:37)
[2023-06-07] MEDS: SOTALOL 80 MG TABLET PO ×2 (08:38→20:42)
[2023-06-07] MEDS: predniSONE 20 MG TABLET 60 MG PO (08:38)
[2023-06-07] MEDS: ALBUTEROL 2.5 MG/3 ML NEB (ADULT) INH ×2 (08:39→14:49)
[2023-06-07] MEDS: BUDESONIDE 0.5 MG/2 ML NEB INH ×2 (08:39→19:30)
[2023-06-07 09:09] LABS: Allen Test for ABG Passed? Yes, Passed; Blood Gas Collection Site Left Radial; Fractionated Inspired Oxygen 32; HCO3 ABG 21 mmol/L (23-27); Oxygen Saturation ABG 94 % (95-100); PCO2 ABG 37.3 mmHg (35-45); PO2 ABG 74 mmHg (80-100); TCO2 ABG 22 mmol/L (23-27); pH ABG 7.36 (7.35-7.45)
--- NOTE | 2023-06-07 14:55 | CM.DPC ---
DCP Cont. Reviewed EMR and team rounds for updates. Pt continues high O2 needs, likely 2-more days before medically stable to d/c. Continue to monitor for d/c recommendation for SNF vs. Home w/HH.
--- NOTE | 2023-06-07 15:02 | DI.CT.S_ITS ---
PROCEDURE: CT CHEST WO CON INDICATIONS: worsening shortness of breath, eval effusion, chf, pna? TECHNIQUE: Noncontrast 5 mm thick sections acquired from the pulmonary apices to the posterior costophrenic angles. 1 mm lung window, 5 mm thick coronal and sagittal and 7 mm axial MIP reformats were then acquired. For radiation dose reduction, the following was used: automated exposure control, adjustment of mA and/or kV according to patient size. COMPARISON: [facility], CT, PE STUDY (CTA CHEST), 01/16/2012, 15:37. [facility], CR, XR CHEST 1V, 06/07/2023, 7:58. [facility], CT, CT CHEST WO CON, 05/20/2023, 11:43. FINDINGS: Image quality: Diagnostic. Lungs and pleura: Abnormal pleural thickening is seen, as before. This appears to be composed of both fluid and solid material. This appears similar to the prior CT examination. There is a left-sided pleural drain appropriately seen within the inferior aspect of the pleural fluid, as on series 5, image 33. Subpleural atelectasis is seen. There is subpleural fibrotic change seen, particular involving the right lower lobe. Mediastinum: Post CABG changes are seen. An AICD is seen. Advanced coronary artery calcification can be seen. Heart size is normal. No pericardial effusion. No mediastinal adenopathy by size criteria. Thoracic aorta and central pulmonary arteries are normal in size. Esophagus is normal in caliber. No hiatal hernia. Bones and chest wall: No suspicious bony lesions. No vertebral body compression fractures. There is mild pectus excavatum deformity. No axillary or supraclavicular adenopathy by size criteria. No thyroid nodules which require sonographic follow up, per consensus guidelines. Upper Abdomen: Visualized upper abdominal solid organs and bowel loops appear normal in the absence of contrast. IMPRESSION: Abnormal left-sided pleural thickening, with fluid and soft tissue material. There is a left-sided pleural drain seen in place. However, the volume of the abnormal pleural material is similar to the prior CT. The underlying lungs are abnormal, with subpleural fibrotic change with honeycombing. Additional findings: AICD CABG Advanced coronary artery calcification Mild pectus excavatum deformity Dictated by: Jin Martin M.D. on 06/07/2023 at 15:03 Approved by: Jin Martin M.D. on 06/07/2023 at 15:07
[2023-06-07] MEDS: FUROSEMIDE 40 MG/4 ML VIAL IV (15:35)
[2023-06-07 15:40] LABS: NT-proBNP (BNP-Adult 18+) 886 pg/mL (<450)
--- NOTE | 2023-06-07 16:43 | PM.CN ---
History of Present Illness Consult details Chief complaint: SOB Narrative: Total 1.7L output from chest tube. Minimal output. Difficulty to flush. Reviewed CT chest. Good position of chest tube but there is residual effusion. Effusion bloody, elevated protein and neutrophilic predominant. LDH and cytology still pending. This could be parapneumonic vs malignant. There is good data for intrapleural tPA (10mg in 50mL) and DNAse (pulmozyme 5mg in 50mL) for complex parapneumonic effusion but not strong data for malignancy; would defer intrapleural fibrinolytics. Residual effusion would not explain worsening shortness of breath and hypoxemia. Suspect may be hypervolemic and trial diuresis given charted weights. Re-evaluate tomorrow after diuresis. Meds Home Medications and Allergies Home Medications Medication Instructions Recorded Confirmed Type isosorbide dinitrate 30 mg tablet 30 mg PO DAILY ##0 09/15/11 06/05/23 History spironolactone 25 mg tablet 25 mg PO QDAY ##0 09/15/11 06/05/23 History losartan 25 mg tablet 25 mg PO QDAY ##0 06/02/12 06/05/23 History metoprolol succinate 50 mg 50 mg PO DAILY 09/23/18 06/05/23 History tablet,extended release 24 hr sotalol 80 mg tablet 80 mg PO BID 09/23/18 06/05/23 History aspirin 81 mg tablet,delayed 81 mg PO DAILY 10/06/18 06/05/23 History release (Adult Aspirin Regimen) atorvastatin 40 mg tablet 40 mg PO DAILY #90 tabs 03/21/23 06/05/23 Rx Asmanex HFA 200 mcg/actuation 1 puff inhalation BID #13 grams 05/08/23 06/05/23 Rx aerosol inhaler (mometasone) inhalational spacing device #1 ea 05/08/23 06/05/23 Rx (BreatheRite MDI Spacer) albuterol sulfate 90 mcg/actuation 2 puff inhalation Q6H PRN 05/19/23 06/05/23 Rx aerosol inhaler shortness of breath or wheezing #8.5 grams warfarin 2.5 mg tablet 2.5 mg PO .COMPLEX #100 tabs 05/20/23 06/05/23 Rx Adult Oxygen mask #1 ea 06/04/23 06/05/23 Rx Allergies Allergy/AdvReac Type Severity Reaction Status Date / Time adhesive Allergy Mild BLISTERS Verified 05/19/23 08:44 AND RASH lisinopril AdvReac Mild COUGH Verified 05/19/23 08:44 Exam Vital Signs (past 8 hours): - 06/07/23 09:00 06/07/23 09:30 06/07/23 11:00 Pulse Rate 79 92 H Respiratory Rate 31 H 40 H Blood Pressure Pulse Oximetry 95 93 93 Oxygen Delivery Method Nasal Cannula Oxygen Flow Rate 4 06/07/23 12:32 06/07/23 13:00 06/07/23 14:49 Pulse Rate 69 80 84 Respiratory Rate 29 H 28 H Blood Pressure 94/51 L 94/51 L Pulse Oximetry 91 93 Oxygen Delivery Method Oximask Oxygen Flow Rate 4 6 06/07/23 15:23 Pulse Rate Respiratory Rate Blood Pressure Pulse Oximetry 93 Oxygen Delivery Method Oximask Oxygen Flow Rate 6 Oxygen Delivery Method Oximask Oxygen Flow Rate 6 Objective Labs 06/07/23 04:21 06/07/23 04:21 Labs: Laboratory Results - last 24 hr 06/07/23 06/07/23 04:21 09:01 WBC 13.7 H RBC 4.26 L Hgb 13.1 L Hct 39.3 L MCV 92.3 MCH 30.7 MCHC 33.2 RDW 14.0 Plt Count 232 Neut % (Auto) 82.4 H Lymph % (Auto) 9.0 L [place] % (Auto) 8.3 Eos % (Auto) 0.2 L Baso % (Auto) 0.1 Neut # (Auto) 44134 H Lymph # (Auto) 1200 [place] # (Auto) 1100 H Eos # (Auto) 0 Baso # (Auto) 0 PT 19.6 H D INR 1.7 H ABG Sample Site Left radial ABG pH 7.36 ABG pCO2 37.3 ABG pO2 74 L ABG HCO3 21 L ABG Total CO2 22 L ABG O2 Saturation 94 L ABG Base Excess -4.0 L FiO2 32 Sodium 133 L Potassium 4.2 Chloride 99 Carbon Dioxide 25 BUN 44 H Creatinine 1.12 Estimated GFR > 60 BUN/Creatinine Ratio 39.3 H Glucose 94 Calcium 8.8 Magnesium 1.8 Total Bilirubin 0.7 AST 31 ALT 29 Alkaline Phosphatase 67 NT-Pro-B Natriuret Pep 886 H Total Protein 6.3 Albumin 3.3 L Globulin 3.0 Albumin/Globulin Ratio 1.1 PFSH Medical History Positive FIT (fecal immunochemical test) Normocytic anemia Chronic pain of both shoulders Cranial somatic dysfunction Cervical somatic dysfunction Neck stiffness Actinic keratoses Excessive cerumen in both ear canals Right medial knee pain Insomnia secondary to chronic pain Chronic neck pain Chicken pox (1975) Measles Mumps Ankle pain (2016) Foot pain Shoulder pain Sleep apnea (~1999) Colon polyps Kidney stones Hearing loss Cardiac arrhythmia (~2014) Cardiac tumor (~2001) Pacemaker (1998) Atrial fibrillation Coronary artery disease (1998) Hypertension Hyperlipidemia Surgical History History of right-sided carotid endarterectomy (~09/2010) AICD (automatic cardioverter/defibrillator) present (12/29/15) History of colonoscopy with polypectomy (07/08/14) History of colonoscopy with polypectomy (05/24/09) Status post carotid surgery (1998) Anesthesia Status post cardiac surgery (~2001) S/P CABG (coronary artery bypass graft) (1998) Status post placement of cardiac pacemaker (~2001) Family History Brother Age: 79 Heart disease Child Liver failure Father Heart disease Grandfather Heart disease Mother MS (multiple sclerosis) Grandmother No problems noted. Sister Stomach cancer Sister Heart disease Social History household members: none Tobacco & Substance Use Smoking Status: Former smoker alcohol intake: never
--- NOTE | 2023-06-07 18:10 | PM.PN.1 ---
Subjective Subjective Date Patient Seen: 06/07/23 Time Patient Seen: 08:00 Interval history: Throughout the day and morning he had increased work of breathing, shortness of breath, and worsening oxygen requirement. Chest xray repeated and showed continued consolidation and possible improved effusion. His chest tube remains in place, overnight drained ~80cc, but since placement has drained >1.7L per documentation. Chest tube placed back to water seal with 40-50cc removed. Saline was unable to be flushed due to resistance. CT chest ordered and showed persistent pleural fluid. Discussed with pulmonology, recs written in consult note. Exam Vital Signs (past 8 hours): - 06/07/23 11:00 06/07/23 12:32 06/07/23 13:00 Temperature Pulse Rate 69 80 Respiratory Rate 29 H Blood Pressure 94/51 L 94/51 L Pulse Oximetry 93 91 Oxygen Delivery Method Nasal Cannula Oxygen Flow Rate 4 4 06/07/23 14:49 06/07/23 15:23 06/07/23 17:00 Temperature 97.2 F L Pulse Rate 84 90 Respiratory Rate 28 H 25 H Blood Pressure 128/60 Pulse Oximetry 93 93 93 Oxygen Delivery Method Oximask Oximask Oxygen Flow Rate 6 6 6 Oxygen Delivery Method Oximask Oxygen Flow Rate 6 Narrative Exam Narrative: GEN: in moderate respiratory distress CV: regular rate and rhythm, no murmurs PULM: crackles bilateral, decreased breath sounds on left ABD: soft, nontender, nondistended, no organomegaly EXT: warm and well perfused with no edema NEURO: awake, alert, oriented, no focal deficits Objective Labs 06/07/23 04:21 06/07/23 04:21 Labs: Laboratory Results - last 24 hr 06/07/23 06/07/23 04:21 09:01 WBC 13.7 H RBC 4.26 L Hgb 13.1 L Hct 39.3 L MCV 92.3 MCH 30.7 MCHC 33.2 RDW 14.0 Plt Count 232 Neut % (Auto) 82.4 H Lymph % (Auto) 9.0 L [place] % (Auto) 8.3 Eos % (Auto) 0.2 L Baso % (Auto) 0.1 Neut # (Auto) 65702 H Lymph # (Auto) 1200 [place] # (Auto) 1100 H Eos # (Auto) 0 Baso # (Auto) 0 PT 19.6 H D INR 1.7 H ABG Sample Site Left radial ABG pH 7.36 ABG pCO2 37.3 ABG pO2 74 L ABG HCO3 21 L ABG Total CO2 22 L ABG O2 Saturation 94 L ABG Base Excess -4.0 L FiO2 32 Sodium 133 L Potassium 4.2 Chloride 99 Carbon Dioxide 25 BUN 44 H Creatinine 1.12 Estimated GFR > 60 BUN/Creatinine Ratio 39.3 H Glucose 94 Calcium 8.8 Magnesium 1.8 Total Bilirubin 0.7 AST 31 ALT 29 Alkaline Phosphatase 67 NT-Pro-B Natriuret Pep 886 H Total Protein 6.3 Albumin 3.3 L Globulin 3.0 Albumin/Globulin Ratio 1.1 PFSH Medical History Positive FIT (fecal immunochemical test) Normocytic anemia Chronic pain of both shoulders Cranial somatic dysfunction Cervical somatic dysfunction Neck stiffness Actinic keratoses Excessive cerumen in both ear canals Right medial knee pain Insomnia secondary to chronic pain Chronic neck pain Chicken pox (1975) Measles Mumps Ankle pain (2016) Foot pain Shoulder pain Sleep apnea (~1999) Colon polyps Kidney stones Hearing loss Cardiac arrhythmia (~2014) Cardiac tumor (~2001) Pacemaker (1998) Atrial fibrillation Coronary artery disease (1998) Hypertension Hyperlipidemia Surgical History History of right-sided carotid endarterectomy (~09/2010) AICD (automatic cardioverter/defibrillator) present (12/29/15) History of colonoscopy with polypectomy (07/08/14) History of colonoscopy with polypectomy (05/24/09) Status post carotid surgery (1998) Anesthesia Status post cardiac surgery (~2001) S/P CABG (coronary artery bypass graft) (1998) Status post placement of cardiac pacemaker (~2001) Family History Brother Age: 79 Heart disease Child Liver failure Father Heart disease Grandfather Heart disease Mother MS (multiple sclerosis) Grandmother No problems noted. Sister Stomach cancer Sister Heart disease Social History household members: none Smoking Status: Former smoker alcohol intake: never Assessment & Plan Assessment & Plan narrative: # Recurrent L pleural effusion -CT chest with multiple air bronchograms, honeycombing, fibrotic changes and masslike density of PRICE last admission. Adenopathy on CT and mass concerning for lung cancer -please see separate consultation from business management manager Dr. Rangel, coordinated plan of care with him. Now s/p pigtail catheter placement yesterday. Was on water seal on 06/06 and placed to suction on 06/07 due to worsening respiratory symptoms -continue to hold coumadin, recommended for IR guided biopsy of lung mass when INR normal. -hold antibiotics pending fluid study results, currently gram stain negative for bacteria. Many WBC seen. -may need increased home O2 on discharge, though not entirely clear. -started on steroids for possible pulmonary fibrosis flare at 60 mg daily. -rule out volume overload as cause of worsening symptoms and try Iv lasix on 06/07 -if not improving on 06/08 will need further consideration of etiology such as infection, malignancy, effusion # acute hypoxic resp failure -likely due to malignancy and fluid reaccumulation -Echo ordered to further assess cardiac status as last echo was >1 year ago. Showed reduced EF as noted below #KALE, improved - suspect due to overdiuresis. - given 500 mL fluid bolus initially - on 06/07 restarted diuresis #Chronic HFrEF of 30-35% -continue BB, imdur, hold aldactone. -holding losartan due to soft BP -Echo with slight decrease in EF to approx 25% -restarted lasix on 06/07 # paroxysmal A-fib with supratherapeutic INR -continue sotalol and metoprolol per home routine -hold warfarin # CAD s/p CABG x4 -continue aspirin # HTN -holding losartan with KALE and mild hypotension # HLD -continue lipitor Quality VTE Deep Vein Thrombosis/Pulmonary Embolism Present on Admission: No
[2023-06-07] MEDS: HEPARIN 5,000 UNIT/ML VIAL 5000 UNIT SUBCUT (20:42)
[2023-06-08] VITALS (41 sets, daily range): BP systolic 99–131; BP diastolic 54–70; PULSE 63–93; RESP 17–53; TEMP 36.3–36.8; O2SAT 83–97
[2023-06-08 05:01] LABS: INR 1.6 (0.9-1.3); Prothrombin Time 18.3 SECONDS (9.4-12.5)
[2023-06-08 05:02] LABS: Add Manual Diff / Slide Review NO; Basophils Absolute Auto 0 /uL (0-100); Basophils Percent Auto 0.1 % (0-2); Eosinophils Absolute Auto 0 /uL (0-450); Eosinophils Percent Auto 0.1 % (2-4); Hematocrit 37.7 % (41-53); Hemoglobin 12.8 g/dL (13.5-17.5); Lymphocytes Absolute Auto 1400 /uL (1100-4500); Lymphocytes Percent Auto 9.8 % (25-40); Mean Corpuscular Hemoglobin 31.1 PG (26-34); Mean Corpuscular Volume 91.6 fL (80-100); Monocytes Absolute Auto 1200 /uL (0-900); Monocytes Percent Auto 8.9 % (3-14); Neutrophils Absolute Auto 11300 /uL (1500-7000); Neutrophils Percent Auto 81.1 % (50-75); Platelet Count 241 X10^3/uL (150-400); Red Blood Cell Count 4.11 X10^6/uL (4.5-5.9); Red Cell Distribution Width 13.6 % (11.6-14.8); White Blood Cell Count 13.9 X10^3/uL (4.5-11.0)
[2023-06-08 05:07] LABS: Alanine Aminotransferase 28 IU/L (<50); Albumin 3.2 g/dL (3.5-5.0); Albumin Globulin Ratio 1.1 (1.0-2.8); Alkaline Phosphatase 63 U/L (38-126); Aspartate Aminotransferase 28 IU/L (17-59); BUN Creatinine Ratio 44.3 (6-22); Bilirubin Total 0.6 mg/dL (0.2-1.3); Blood Urea Nitrogen 47 mg/dL (9-20); Carbon Dioxide 28 mmol/L (22-32); Chloride 99 mmol/L (98-107); Estimated Glomerular Filt Rate > 60 mL/min (>60); Glucose 99 mg/dL (80-110); HEMOLYSIS 16 (0-50); Magnesium 1.7 mg/dL (1.6-2.3); Sodium 132 mmol/L (137-145); Total Protein 6.2 g/dL (6.3-8.2)
[2023-06-08] MEDS: PANTOPRAZOLE DR 20 MG TABLET PO (06:26)
[2023-06-08] MEDS: ISOSORBIDE MONONITRATE ER 30 MG TABLET PO (06:27)
[2023-06-08] MEDS: BUDESONIDE 0.5 MG/2 ML NEB INH ×2 (07:37→20:20)
[2023-06-08] MEDS: MAGNESIUM CHLORIDE 64 MG TABLET 128 MG PO (08:38)
[2023-06-08] MEDS: SOTALOL 80 MG TABLET PO ×2 (08:38→21:28)
[2023-06-08] MEDS: predniSONE 20 MG TABLET 60 MG PO (08:38)
[2023-06-08] MEDS: ATORVASTATIN 20 MG TABLET 40 MG PO (08:38)
[2023-06-08] MEDS: METOPROLOL ER 50 MG TABLET PO (08:39)
[2023-06-08] MEDS: HEPARIN 5,000 UNIT/ML VIAL 5000 UNIT SUBCUT ×2 (08:39→21:28)
--- NOTE | 2023-06-08 09:04 | CM.DPC ---
Addendum entered and electronically signed by ALEENA Almanzar 06/08/23 11:03: Hospitalist is waiting for cytology to determine if pt's lung mass is malignant. Pending whether SNF rehab or SNF w/hospice is most appropriate following these results. Original Note: DCP Cont. Reviewed EMR for status updates. Met with pt at bedside to check-in and offer support. He remains about the same medically, O2 requirements increased, he continues to be monitored for need for diuresis vs. fluid overload, ABO's held. Plan is to beging referrals for SNF rehab placement on Friday, preference is [facility]. Cont. to monitor.
--- NOTE | 2023-06-08 12:44 | P.PN_ITS ---
Subjective Subjective Date Patient Seen: 06/08/23 Interval history: Pt remains on 44% FIO2. Feels dyspneic with any exertion. Awating cytology on pleural effusion. Persistent pleural fluid after chest tube with zero output since yesterday (? blocked catheter). O2 sat hasn't yet improved since Lasix diuresis started on 06/07. Exam Vital Signs (past 8 hours): - 06/08/23 05:00 06/08/23 05:00 06/08/23 05:30 Temperature Pulse Rate 63 63 Respiratory Rate 18 18 Blood Pressure Pulse Oximetry 95 95 95 Oxygen Delivery Method Oximask Oxygen Flow Rate 6 Fraction of Inspired Oxygen 06/08/23 06:00 06/08/23 06:30 06/08/23 07:00 Temperature Pulse Rate 69 68 72 Respiratory Rate 27 H 25 H 53 H Blood Pressure Pulse Oximetry 97 96 96 Oxygen Delivery Method Oxygen Flow Rate Fraction of Inspired Oxygen 06/08/23 07:30 06/08/23 07:33 06/08/23 08:00 Temperature Pulse Rate 73 74 72 Respiratory Rate 27 H 18 25 H Blood Pressure Pulse Oximetry 94 94 93 Oxygen Delivery Method Oximask Oxygen Flow Rate 6 Fraction of Inspired Oxygen 44 06/08/23 08:30 06/08/23 08:35 06/08/23 08:35 Temperature Pulse Rate 74 74 Respiratory Rate 27 H 42 H Blood Pressure 99/54 L Pulse Oximetry 96 93 Oxygen Delivery Method Oxygen Flow Rate Fraction of Inspired Oxygen 06/08/23 08:36 06/08/23 08:36 06/08/23 08:39 Temperature 97.5 F L Pulse Rate 75 66 Respiratory Rate 36 H Blood Pressure 114/55 L 114/55 L Pulse Oximetry 91 Oxygen Delivery Method Oxygen Flow Rate 3 Fraction of Inspired Oxygen 06/08/23 09:00 06/08/23 09:00 06/08/23 09:00 Temperature Pulse Rate 79 Respiratory Rate 27 H Blood Pressure Pulse Oximetry 96 Oxygen Delivery Method Oximask Oximask Oxygen Flow Rate 6 Fraction of Inspired Oxygen 06/08/23 09:00 06/08/23 09:47 Temperature Pulse Rate 82 Respiratory Rate Blood Pressure Pulse Oximetry Oxygen Delivery Method Oximask Oxygen Flow Rate Fraction of Inspired Oxygen Fraction of Inspired Oxygen 44 SaO2/FiO2 Ratio 213 Oxygen Delivery Method Oximask Oxygen Flow Rate 6 Narrative Exam Narrative: Gen: alert, oriented Lungs: diminished on left, bilat insp crackles c/w PF CV: regular Ext: no edema Objective Labs 06/08/23 04:12 06/08/23 04:12 Labs: Laboratory Results - last 24 hr 06/07/23 06/08/23 04:21 04:12 WBC 13.9 H RBC 4.11 L Hgb 12.8 L Hct 37.7 L MCV 91.6 MCH 31.1 MCHC 34.0 RDW 13.6 Plt Count 241 Neut % (Auto) 81.1 H Lymph % (Auto) 9.8 L [place] % (Auto) 8.9 Eos % (Auto) 0.1 L Baso % (Auto) 0.1 Neut # (Auto) 82516 H Lymph # (Auto) 1400 [place] # (Auto) 1200 H Eos # (Auto) 0 Baso # (Auto) 0 PT 18.3 H INR 1.6 H Sodium 132 L Potassium 4.0 Chloride 99 Carbon Dioxide 28 BUN 47 H Creatinine 1.06 Estimated GFR > 60 BUN/Creatinine Ratio 44.3 H Glucose 99 Calcium 9.0 Magnesium 1.7 Total Bilirubin 0.6 AST 28 ALT 28 Alkaline Phosphatase 63 NT-Pro-B Natriuret Pep 886 H Total Protein 6.2 L Albumin 3.2 L Globulin 3.0 Albumin/Globulin Ratio 1.1 PFSH Medical History Positive FIT (fecal immunochemical test) Normocytic anemia Chronic pain of both shoulders Cranial somatic dysfunction Cervical somatic dysfunction Neck stiffness Actinic keratoses Excessive cerumen in both ear canals Right medial knee pain Insomnia secondary to chronic pain Chronic neck pain Chicken pox (1975) Measles Mumps Ankle pain (2016) Foot pain Shoulder pain Sleep apnea (~1999) Colon polyps Kidney stones Hearing loss Cardiac arrhythmia (~2014) Cardiac tumor (~2001) Pacemaker (1998) Atrial fibrillation Coronary artery disease (1998) Hypertension Hyperlipidemia Surgical History History of right-sided carotid endarterectomy (~09/2010) AICD (automatic cardioverter/defibrillator) present (12/29/15) History of colonoscopy with polypectomy (07/08/14) History of colonoscopy with polypectomy (05/24/09) Status post carotid surgery (1998) Anesthesia Status post cardiac surgery (~2001) S/P CABG (coronary artery bypass graft) (1998) Status post placement of cardiac pacemaker (~2001) Family History Brother Age: 79 Heart disease Child Liver failure Father Heart disease Grandfather Heart disease Mother MS (multiple sclerosis) Grandmother No problems noted. Sister Stomach cancer Sister Heart disease Social History household members: none Smoking Status: Former smoker alcohol intake: never Assessment & Plan Assessment & Plan narrative: # Recurrent L pleural effusion -CT chest with multiple air bronchograms, honeycombing, fibrotic changes and masslike density of PRICE last admission. Adenopathy on CT and mass concerning for lung cancer -please see separate consultation from deep well contractor Dr. Rangel, coordinated plan of care with him. Now s/p pigtail catheter placement yesterday. Was on water seal on 06/06 and placed to suction on 06/07 due to worsening respiratory symptoms -continue to hold coumadin, recommended for IR guided biopsy of lung mass when INR normal. -hold antibiotics pending fluid study results, currently gram stain negative for bacteria. Many WBC seen. -may need increased home O2 on discharge, though not entirely clear. -started on steroids for possible pulmonary fibrosis flare at 60 mg daily. -rule out volume overload as cause of worsening symptoms and try Iv lasix on 06/07 # acute hypoxic resp failure -likely due to malignancy and fluid reaccumulation -Echo ordered to further assess cardiac status as last echo was >1 year ago. Showed reduced EF as noted below #KALE, improved - suspect due to overdiuresis. - given 500 mL fluid bolus initially - on 06/07 restarted diuresis - monitor closely #Chronic HFrEF of 30-35% -continue BB, imdur, hold aldactone. -holding losartan due to soft BP -Echo with slight decrease in EF to approx 25% -restarted lasix 40 mg IV daily on 06/07 # paroxysmal A-fib with supratherapeutic INR -continue sotalol and metoprolol per home routine -hold warfarin # CAD s/p CABG x4 -continue aspirin # HTN -holding losartan with recent KALE and mild hypotension # HLD -continue lipitor Quality VTE Deep Vein Thrombosis/Pulmonary Embolism Present on Admission: No
[2023-06-08] MEDS: FUROSEMIDE 40 MG/4 ML VIAL IV (23:46)
[2023-06-09] VITALS (12 sets, daily range): BP systolic 98–118; BP diastolic 49–67; PULSE 74–81; RESP 16–24; TEMP 35.9–36.6; O2SAT 92–96
--- NOTE | 2023-06-09 05:10 | PC.NURSE ---
Addendum entered by Juanito Cho R.N. 06/09/23 06:43: Patient continued to have continuous beats of vtach, about 12-15 beats each. 97% 6L HR 80 121/61 (82).Dr. Kuo notified, EKG, trop, and cmp, 2.5mg IV metoprolol ordered and completed through. Original Note: Patient experienced 4 beats of Vtach at 0211, then about 10 more beats at 0458. Patient denies any symptoms. Dr. Kuo notified, no new orders.
[2023-06-09 06:19] LABS: Alanine Aminotransferase 38 IU/L (<50); Albumin 3.4 g/dL (3.5-5.0); Albumin Globulin Ratio 1.1 (1.0-2.8); Alkaline Phosphatase 62 U/L (38-126); Aspartate Aminotransferase 35 IU/L (17-59); BUN Creatinine Ratio 39.1 (6-22); Bilirubin Total 0.7 mg/dL (0.2-1.3); Blood Urea Nitrogen 45 mg/dL (9-20); Calcium 8.8 mg/dL (8.4-10.2); Carbon Dioxide 29 mmol/L (22-32); Chloride 98 mmol/L (98-107); Estimated Glomerular Filt Rate > 60 mL/min (>60); Globulin 3.1 g/dL (1.7-4.1); Glucose 92 mg/dL (80-110); HEMOLYSIS < 15 (0-50); Magnesium 1.8 mg/dL (1.6-2.3); Potassium 3.9 mmol/L (3.4-5.1); Sodium 134 mmol/L (137-145); Total Protein 6.5 g/dL (6.3-8.2)
[2023-06-09] MEDS: METOPROLOL TARTRATE 5 MG/5 ML INJ 2.5 MG IV (06:21)
[2023-06-09] MEDS: PANTOPRAZOLE DR 20 MG TABLET PO (06:21)
[2023-06-09] MEDS: ISOSORBIDE MONONITRATE ER 30 MG TABLET PO (06:21)
[2023-06-09 06:30] LABS: Troponin I 0.014 ng/mL (0.01-0.034)
[2023-06-09] MEDS: BUDESONIDE 0.5 MG/2 ML NEB INH ×2 (07:51→18:33)
[2023-06-09 09:02] LABS: INR 1.3 (0.9-1.3); Prothrombin Time 15.4 SECONDS (9.4-12.5)
[2023-06-09] MEDS: ATORVASTATIN 20 MG TABLET 40 MG PO (09:04)
[2023-06-09] MEDS: predniSONE 20 MG TABLET 60 MG PO (09:04)
[2023-06-09] MEDS: METOPROLOL ER 50 MG TABLET PO (09:04)
[2023-06-09] MEDS: SOTALOL 80 MG TABLET PO ×2 (09:04→21:32)
[2023-06-09] MEDS: HEPARIN 5,000 UNIT/ML VIAL 5000 UNIT SUBCUT ×2 (09:04→21:32)
[2023-06-09 09:05] LABS: PTT Partial Thromboplastin Tim 24 SECONDS (25.1-36.5)
--- NOTE | 2023-06-09 11:40 | PT-IP ANOTE ---
PT order received. PT reviewed chart and checked with nsg and pt. Nsg reports concern that CT may not be draining well and pt with SOB. PT checks in on pt who is SOB and states he does not feel well enough to mobilize with PT. Con't PT efforts.
--- NOTE | 2023-06-09 12:19 | OT.IPNOTE ---
OT order received. OT reviewed chart and checked with nsg. Nsg is concerned about CT not draining properly. OT to wait until resolved by .
--- NOTE | 2023-06-09 13:46 | P.PN_ITS ---
Subjective Subjective Interval history: Was able to flush chest tube today, and removed approx 550 cc of bloody fluid today via pigtail and the catheter was draining again after this. He felt no significant improvement after fluid removal with his breathing. He still feels quite short of breath and has been on as high as 6L. No fever, chills. INR now 1.[address] guided biopsy. Exam Vital Signs (past 8 hours): - 06/09/23 07:00 06/09/23 07:51 06/09/23 08:00 Temperature 96.9 F L Pulse Rate 77 77 Respiratory Rate 20 24 Blood Pressure 98/57 L Pulse Oximetry 94 96 Oxygen Delivery Method Nasal Cannula Nasal Cannula Oxygen Flow Rate 4 6 Fraction of Inspired Oxygen 36 06/09/23 09:00 06/09/23 09:04 06/09/23 09:34 Temperature Pulse Rate 77 74 Respiratory Rate Blood Pressure 98/57 L Pulse Oximetry 95 Oxygen Delivery Method Nasal Cannula Oxygen Flow Rate Fraction of Inspired Oxygen 06/09/23 12:00 Temperature 97.3 F L Pulse Rate 75 Respiratory Rate 17 Blood Pressure 107/64 Pulse Oximetry 94 Oxygen Delivery Method Oxygen Flow Rate Fraction of Inspired Oxygen Fraction of Inspired Oxygen 36 SaO2/FiO2 Ratio 261 Oxygen Delivery Method Nasal Cannula Oxygen Flow Rate 6 Narrative Exam Narrative: Gen: alert, oriented Lungs: diminished on left, improved after fluid removal. bilat insp crackles c/w PF CV: RRR no m/r/g. Ext: no edema Objective Labs 06/08/23 04:12 06/09/23 06:00 Labs: Laboratory Results - last 24 hr 06/09/23 06/09/23 06:00 08:40 PT 15.4 H INR 1.3 APTT 24 L Sodium 134 L Potassium 3.9 Chloride 98 Carbon Dioxide 29 BUN 45 H Creatinine 1.15 Estimated GFR > 60 BUN/Creatinine Ratio 39.1 H Glucose 92 Calcium 8.8 Magnesium 1.8 Total Bilirubin 0.7 AST 35 ALT 38 Alkaline Phosphatase 62 Troponin I 0.014 Total Protein 6.5 Albumin 3.4 L Globulin 3.1 Albumin/Globulin Ratio 1.1 [facility] Medical History Positive FIT (fecal immunochemical test) Normocytic anemia Chronic pain of both shoulders Cranial somatic dysfunction Cervical somatic dysfunction Neck stiffness Actinic keratoses Excessive cerumen in both ear canals Right medial knee pain Insomnia secondary to chronic pain Chronic neck pain Chicken pox (1975) Measles Mumps Ankle pain (2016) Foot pain Shoulder pain Sleep apnea (~1999) Colon polyps Kidney stones Hearing loss Cardiac arrhythmia (~2014) Cardiac tumor (~2001) Pacemaker (1998) Atrial fibrillation Coronary artery disease (1998) Hypertension Hyperlipidemia Surgical History History of right-sided carotid endarterectomy (~09/2010) AICD (automatic cardioverter/defibrillator) present (12/29/15) History of colonoscopy with polypectomy (07/08/14) History of colonoscopy with polypectomy (05/24/09) Status post carotid surgery (1998) Anesthesia Status post cardiac surgery (~2001) S/P CABG (coronary artery bypass graft) (1998) Status post placement of cardiac pacemaker (~2001) Family History Brother Age: 79 Heart disease Child Liver failure Father Heart disease Grandfather Heart disease Mother MS (multiple sclerosis) Grandmother No problems noted. Sister Stomach cancer Sister Heart disease Social History household members: none Smoking Status: Former smoker alcohol intake: never Assessment & Plan Assessment & Plan narrative: # Recurrent L pleural effusion -CT chest with multiple air bronchograms, honeycombing, fibrotic changes and masslike density of PRICE last admission. Adenopathy on CT and mass concerning for lung cancer -please see separate consultation from flight dispatcher Dr. Rangel, coordinated plan of care with him. Now s/p pigtail catheter placement on 06/05. Was on water seal on 06/06 and placed to suction on 06/07 due to worsening respiratory symptoms -continue to hold coumadin, recommended for IR guided biopsy of lung mass when INR normal. INR is 1.[address] guided biopsy ordered today. -no concern for infection at this time after cultures negative. -may need increased home O2 on discharge, though not entirely clear. -started on steroids for possible pulmonary fibrosis flare at 60 mg daily. Decrease to 40 today as does not appear to be helping. Will do quick taper. -rule out volume overload as cause of worsening symptoms and try Iv lasix on 06/07, will continue today. -fluid is exudative. Only result is total protein from the fluid which was 4.1. LDH, pathology, Glucose still pending. There were numerous RBC on cell count, cultures negative. -pigtail can be removed if fluid output is <200. Over the weekend the tubing likely clogged. Removed 550 cc at bedside today after flushing catheter myself. Will have repeat imaging with CT guided lung biopsy re: fluid re-accumulation. # acute hypoxic resp failure -likely due to malignancy and fluid reaccumulation -Echo ordered to further assess cardiac status as last echo was >1 year ago. Showed reduced EF as noted below #KALE, improved - suspect due to overdiuresis / hypovolemia initially - given 500 mL fluid bolus initially - on 06/07 restarted diuresis, no significant change in Cr since. - monitor closely #Chronic HFrEF of 30-35% -continue BB, imdur, hold aldactone. -holding losartan due to soft BP -Echo with slight decrease in EF to approx 25% -restarted lasix 40 mg IV daily on 06/07, will continue today. Consider change to oral soon. # paroxysmal A-fib with supratherapeutic INR -continue sotalol and metoprolol per home routine -hold warfarin for CT guided lung biopsy. # CAD s/p CABG x4 -continue aspirin # HTN -holding losartan with recent KALE and mild hypotension # HLD -continue lipitor Code: Full Proxy is carter Lugo. DVT: HSQ BID Dispo: plan for SNF when medically stable and pigtail catheter removed. Quality VTE Deep Vein Thrombosis/Pulmonary Embolism Present on Admission: No
--- NOTE | 2023-06-09 14:05 | DI.CT.S_ITS ---
PROCEDURE: CT CHEST W CON INDICATIONS: Left lung mass, eval prior to poss. biopsy TECHNIQUE: After the administration of intravenous contrast, 5 mm thick sections acquired from the pulmonary apices to the posterior costophrenic angles. 1 mm axial lung, 5 mm thick coronal and sagittal reformats and 7 mm axial MIP were acquired. For radiation dose reduction, the following was used: automated exposure control, adjustment of mA and/or kV according to patient size. COMPARISON: [facility], CT, CT CHEST WO CON, 06/07/2023, 15:09. FINDINGS: Image quality: Diagnostic. Lungs and pleura: Significant circumferential left irregular pleural thickening and enhancing nodularity. Abnormal pleural soft tissue is most extensive in the left upper thorax anteriorly. There is atelectasis of the left lower lobe and moderate size left pleural effusion which contains a pigtail catheter along the inferior most aspect. Findings are superimposed on fibrotic changes in the bilateral upper lobes and posteromedial right lower lobe. Mild right lower lobe bronchiectasis. Mediastinum: Heart size is at the upper limits of normal. Pacemaker leads are present. There is myocardial thinning at the left ventricular apex along with a few calcifications suggesting prior infarct. Trace pericardial effusion. Heavy coronary artery calcification. Great vessels are normal caliber. Moderate aortic arch calcification. Extensive left perihilar lobulated soft tissue consistent with adenopathy. This extends throughout the AP window and the left paratracheal mediastinum and right subcarinal and infrahilar region. There are several left epicardial fat pad nodules/enlarged lymph nodes. Lobulated abnormal soft tissue present anteriorly along the chest wall in the left epicardial fat. Periesophageal adenopathy at the GE junction. Bones and chest wall: There are median sternotomy changes. No visible bone lesions or vertebral body fractures. Multilevel degenerative disc changes. Left anterior chest wall ICD. Enlarged level 3 left axillary lymph node and a few enlarged level 1 axillary nodes. No right axillary adenopathy. Borderline supraclavicular adenopathy. The thyroid gland is unremarkable. Upper Abdomen: Numerous faint hepatic hypodensities. Upper abdomen is incompletely imaged. IMPRESSION: 1. Nodular pleural based disease circumferentially in the left hemithorax with pleural effusion. 2. Marked left hilar and mediastinal adenopathy as well as posterior mediastinal, supraclavicular, axillary, and epicardial adenopathy. 3. Chronic fibrotic lung disease. 4. Multiple cardiac findings as described, stable. 5. Several faint hepatic hypodensities most suggestive of metastatic liver disease. Dictated by: Pam Mercedes M.D. on 06/09/2023 at 16:18 Approved by: Pam Mercedes M.D. on 06/09/2023 at 16:35
--- NOTE | 2023-06-09 17:19 | CM.DPNOTE ---
DCP Note RELIEF COOK reviewed EMR. Per provider, likely will need OP biopsy. but would likely dc within the next few days from here. RELIEF COOK spoke with intake at [facility], agreed to review. Per PT/OT note, nursing team concerned about chest tube not draining properly and appropriate to hold off evals for the moment. Per PT note, pt does not feel well enough to mobilize with PT. RELIEF COOK unable to meet with pt today due to triaging needs. Plan: potentially SNF pending facility acceptance/PT/OT eval recs. Pending [facility] [place] [facility] auth. Consider if pt is hopsice versus SNF appropriate? CM team will continue to follow closely. ALEENA Daniels
[2023-06-10] VITALS (16 sets, daily range): BP systolic 87–126; BP diastolic 43–92; PULSE 58–77; RESP 14–22; TEMP 36.1–37.1; O2SAT 92–97
--- NOTE | 2023-06-10 | PATH_ITS ---
[facility] Accession Number: [id number] No. of containers..01 Tissue . 01 Material submitted: . lung - LEFT UPPER LOBE LUNG MASS . 01 Diagnosis: Lung, Left Upper Lobe, Image-Guided Core Biopsy: Small cell carcinoma (high-grade neuroendocrine carcinoma). MRV 06/20/2023 1515 Local . 01 Comment: The core biopsies are composed of sheets of intermediate to small cells with scant cytoplasm and hyperchromatic irregular nuclei accompanied by nuclear crush artifact/molding, geographic necrosis, and individual tumor cell necrosis. A panel of immunostains is obtained, with the controls stained appropriately. The tumor shows the following results: . Broad spectrum cytokeratins (PERLA): Focally positive. Synaptophysin: Uniformly positive. Chromogranin: Variably positive. Ki-67: Approximately 80-90%. TTF1: Uniformly positive. Napsin: Negative. P40: Negative. . These results confirm the morphologic suspicion of a high-grade neuroendocrine carcinoma given coexpression of the neuroendocrine marker synaptophysin and chromogranin, and high proliferation rate as indicated by Ki-67. The low level expression seen with cytokeratins (PERLA) is in keeping with a high-grade neuroendocrine tumor. Additionally, expression of TTF1 supports a lung primary, although it is worthy to note that TTF1 loses specificity in the setting of neuroendocrine tumors. Furthermore, there is no evidence for a lung adenocarcinoma (negative napsin) or squamous cell carcinoma (negative p40). . Previous verbal notification to the patient's provider on the earlier malignant pleural fluid ([id number], 06/06/2023) is noted. . * This test was developed and its performance characteristics determined by [facility]. It has not been cleared or approved by the U.S. Food and Drug Administration. The FDA has determined that such clearance or approval is not necessary. This test is used for clinical purposes. It should not be regarded as investigational or for research. . 01 Electronically signed: . Julissa Gaming MD, Pathologist NPI- [id number] . 01 Gross description: . The specimen is received in formalin labeled with the patient's name, , and no additional designation, consists of three pale saldaña needle core biopsies ranging in length from 0.6 to 0.8 cm and averaging less than 0.1 cm in diameter. The specimen is submitted entirely in cassette A1. ([id number]) /MRV 06/11/20236 Local . 01 Pathologist provided ICD-10: C34.10 . 01 CPT . 549211, F99459, N55354 Specimen Comment: A courtesy copy of this report has been sent to [facility] Pathology Performed at: 01 [facility] [address] [place] [address], [place], [place] [id number] MD Cleveland Alcaraz MD Phone: [phone]
[2023-06-10 04:57] LABS: INR 1.4 (0.9-1.3); Prothrombin Time 15.7 SECONDS (9.4-12.5)
[2023-06-10 05:00] LABS: Add Manual Diff / Slide Review NO; Basophils Absolute Auto 100 /uL (0-100); Basophils Percent Auto 0.4 % (0-2); Eosinophils Absolute Auto 0 /uL (0-450); Eosinophils Percent Auto 0.1 % (2-4); Hematocrit 39.9 % (41-53); Hemoglobin 13.4 g/dL (13.5-17.5); Lymphocytes Absolute Auto 1400 /uL (1100-4500); Lymphocytes Percent Auto 9.6 % (25-40); Mean Corpuscular HGB Conc 33.6 % (30-36); Mean Corpuscular Hemoglobin 30.4 PG (26-34); Mean Corpuscular Volume 90.2 fL (80-100); Monocytes Absolute Auto 1200 /uL (0-900); Monocytes Percent Auto 7.9 % (3-14); Neutrophils Absolute Auto 12100 /uL (1500-7000); Platelet Count 227 X10^3/uL (150-400); Red Blood Cell Count 4.42 X10^6/uL (4.5-5.9); Red Cell Distribution Width 13.9 % (11.6-14.8); White Blood Cell Count 14.7 X10^3/uL (4.5-11.0)
[2023-06-10 05:02] LABS: BUN Creatinine Ratio 37.5 (6-22); Blood Urea Nitrogen 42 mg/dL (9-20); Calcium 9.1 mg/dL (8.4-10.2); Carbon Dioxide 30 mmol/L (22-32); Chloride 97 mmol/L (98-107); Estimated Glomerular Filt Rate > 60 mL/min (>60); Glucose 99 mg/dL (80-110); HEMOLYSIS < 15 (0-50); Magnesium 1.9 mg/dL (1.6-2.3); Potassium 4.4 mmol/L (3.4-5.1); Sodium 132 mmol/L (137-145)
[2023-06-10] MEDS: ISOSORBIDE MONONITRATE ER 30 MG TABLET PO (06:41)
[2023-06-10] MEDS: PANTOPRAZOLE DR 20 MG TABLET PO (06:41)
--- NOTE | 2023-06-10 07:01 | PC.NURSE ---
0320: Patient having two sets of 7 beats of vtach. VSS. Dr. Kuo made aware. 0650: Patient having another [address] Kuo made aware.
[2023-06-10] MEDS: BUDESONIDE 0.5 MG/2 ML NEB INH ×2 (07:34→19:10)
[2023-06-10] MEDS: predniSONE 20 MG TABLET 40 MG PO (11:05)
[2023-06-10] MEDS: SOTALOL 80 MG TABLET PO ×2 (11:05→21:54)
[2023-06-10] MEDS: METOPROLOL ER 50 MG TABLET PO (11:05)
[2023-06-10] MEDS: ATORVASTATIN 20 MG TABLET 40 MG PO (11:05)
--- NOTE | 2023-06-10 13:11 | PM.PN.1 ---
Subjective Subjective Interval history: Pigtail catheter continues to drain today. with 600 cc already today along with the fluid removed yesterday after flushing the catheter. He had a CT guided biopsy today which was successful. He feels improved today with regards to his breathing as well, still on 3-4 L of O2. Exam Vital Signs (past 8 hours): - 06/10/23 07:34 06/10/23 09:47 06/10/23 09:54 Temperature Pulse Rate 58 L 68 67 Respiratory Rate 18 14 15 Blood Pressure 112/52 L 114/56 L Pulse Oximetry 96 92 93 Oxygen Delivery Method Nasal Cannula Oxygen Flow Rate 3.5 4 4 Fraction of Inspired Oxygen 34 06/10/23 09:55 06/10/23 09:57 06/10/23 09:59 Temperature Pulse Rate 68 66 69 Respiratory Rate 15 17 15 Blood Pressure 115/53 L 115/53 L 107/54 L Pulse Oximetry 92 92 94 Oxygen Delivery Method Oxygen Flow Rate 4 4 4 Fraction of Inspired Oxygen 06/10/23 10:13 06/10/23 11:27 Temperature 98.7 F Pulse Rate 66 Respiratory Rate 18 Blood Pressure 108/92 H Pulse Oximetry 95 93 Oxygen Delivery Method Nasal Cannula Oxygen Flow Rate 4 4 Fraction of Inspired Oxygen Fraction of Inspired Oxygen 34 SaO2/FiO2 Ratio 282 Oxygen Delivery Method Nasal Cannula Oxygen Flow Rate 4 Narrative Exam Narrative: Gen: alert, oriented Lungs: diminished on left, improved after fluid removal. bilat insp crackles c/w PF CV: RRR no m/r/g. Ext: no edema Objective Labs 06/10/23 04:38 06/10/23 04:38 Labs: Laboratory Results - last 24 hr 06/10/23 04:38 WBC 14.7 H RBC 4.42 L Hgb 13.4 L Hct 39.9 L MCV 90.2 MCH 30.4 MCHC 33.6 RDW 13.9 Plt Count 227 Neut % (Auto) 82.0 H Lymph % (Auto) 9.6 L [place] % (Auto) 7.9 Eos % (Auto) 0.1 L Baso % (Auto) 0.4 Neut # (Auto) 51441 H Lymph # (Auto) 1400 [place] # (Auto) 1200 H Eos # (Auto) 0 Baso # (Auto) 100 PT 15.7 H INR 1.4 H Sodium 132 L Potassium 4.4 Chloride 97 L Carbon Dioxide 30 BUN 42 H Creatinine 1.12 Estimated GFR > 60 BUN/Creatinine Ratio 37.5 H Glucose 99 Calcium 9.1 Magnesium 1.9 PFSH Medical History Positive FIT (fecal immunochemical test) Normocytic anemia Chronic pain of both shoulders Cranial somatic dysfunction Cervical somatic dysfunction Neck stiffness Actinic keratoses Excessive cerumen in both ear canals Right medial knee pain Insomnia secondary to chronic pain Chronic neck pain Chicken pox (1975) Measles Mumps Ankle pain (2016) Foot pain Shoulder pain Sleep apnea (~1999) Colon polyps Kidney stones Hearing loss Cardiac arrhythmia (~2014) Cardiac tumor (~2001) Pacemaker (1998) Atrial fibrillation Coronary artery disease (1998) Hypertension Hyperlipidemia Surgical History History of right-sided carotid endarterectomy (~09/2010) AICD (automatic cardioverter/defibrillator) present (12/29/15) History of colonoscopy with polypectomy (07/08/14) History of colonoscopy with polypectomy (05/24/09) Status post carotid surgery (1998) Anesthesia Status post cardiac surgery (~2001) S/P CABG (coronary artery bypass graft) (1998) Status post placement of cardiac pacemaker (~2001) Family History Brother Age: 79 Heart disease Child Liver failure Father Heart disease Grandfather Heart disease Mother MS (multiple sclerosis) Grandmother No problems noted. Sister Stomach cancer Sister Heart disease Social History household members: none Smoking Status: Former smoker alcohol intake: never Assessment & Plan Assessment & Plan narrative: # Recurrent L pleural effusion -CT chest with multiple air bronchograms, honeycombing, fibrotic changes and masslike density of PRICE last admission. Adenopathy on CT and mass concerning for lung cancer -please see separate consultation from tight rope walker Dr. Rangel, coordinated plan of care with him. Now s/p pigtail catheter placement on 06/05. Was on water seal on 06/06 and placed to suction on 06/07 due to worsening respiratory symptoms -continue to hold coumadin, recommended for IR guided biopsy of lung mass when INR normal. INR is 1.[address] guided biopsy performed today. Can resume INR per pharmacy. -no concern for infection at this time after cultures negative. -may need increased home O2 on discharge, though not entirely clear. -started on steroids for possible pulmonary fibrosis flare at 60 mg daily. Decreased to 40 today as does not appear to be helping. Continue on taper with 40 mg daily then taper further in a few days. -continue furosemide 40 mg IV daily. -fluid is exudative. Only result is total protein from the fluid which was 4.1. LDH, pathology, Glucose still pending. There were numerous RBC on cell count, cultures negative. Cytology pending. CT guided biopsy performed 06/10. -pigtail can be removed if fluid output is <200. Over the weekend the tubing likely clogged. Removed 550 cc at bedside 06/09 after flushing catheter myself. Another 600 cc output on 06/10 in the morning. -Dr. Rangel to return on 06/11, with continued high output, unclear if pigtail will be able to be removed. This may complicate SNF placement as well. # acute on chronic hypoxic resp failure -likely due to malignancy and fluid reaccumulation -Echo ordered to further assess cardiac status as last echo was >1 year ago. Showed reduced EF as noted below #KALE, improved - suspect due to overdiuresis / hypovolemia initially - given 500 mL fluid bolus initially - on 06/07 restarted diuresis, no significant change in Cr since. 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 -holding losartan due to soft BP -Echo with slight decrease in EF to approx 25% -restarted lasix 40 mg IV daily on 06/07, will continue today. Consider change to oral soon. # paroxysmal A-fib with supratherapeutic INR -continue sotalol and metoprolol per home routine -held warfarin for CT guided lung biopsy. Can resume now per pharmacy protocol. # CAD s/p CABG x4 -continue aspirin # HTN -holding losartan with recent KALE and mild hypotension # HLD -continue lipitor Code: Full Proxy is carter Lugo. DVT: HSQ BID Dispo: plan for SNF when medically stable and chest output improved, however may need updated plan for continued reaccumulation of pleural fluid with either continued catheter (unclear if this will be able to be managed at SNF) or other treatments. Quality VTE Deep Vein Thrombosis/Pulmonary Embolism Present on Admission: No
--- NOTE | 2023-06-10 13:51 | DI.CT.S_ITS ---
PROCEDURE: CT BIOPSY LUNG LT Sedation analgesia for 20 minutes. INDICATIONS: L lung mass, recommended biopsy by pulmonology TECHNIQUE: The indications, alternatives, benefits, risks, and possible complications of the procedure were communicated to the patient. Informed written consent from the patient was obtained and placed in the chart. Continuous EKG and hemodynamic monitoring was started by trained personnel. The patient was brought to the CT suite and feed house supervisor spiral CT imaging was performed with localization grid. The appropriate site for percutaneous access to the biopsy target was marked, was prepped and draped sterilely, and was infused with local anaesthesia. Under CT guidance, a core biopsy trocar and needle set was advanced to the biopsy target, and specimen(s) were obtained. The trocar and needle were then removed, and the patient was sent for post-procedure monitoring. COMPARISON: [facility], CT, CT CHEST W CON, 06/09/2023, 14:22. [facility], CT, CT CHEST WO CON, 06/07/2023, 15:09. FINDINGS: Biopsy site: Left upper lobe mass Needle: 20 gauge biopsy needle with introducer trocar. Number of passes: 3 Medications: 1% lidocaine for local anaesthesia. IV Fentanyl and Versed for conscious sedation for 20 minutes (see nursing record). Complications: None. IMPRESSION: Successful CT-guided biopsy of left upper lobe mass. Dictated by: Zuleima Sierra M.D. on 06/10/2023 at 11:14 Approved by: Zuleima Sierra M.D. on 06/10/2023 at 11:28
--- NOTE | 2023-06-10 14:17 | OT.IP.EVAL ---
Addendum entered and electronically signed by Stephanie Esquivel OT 06/10/23 15:18: esign Original Note: Current Diagnoses Essential (primary) hypertension (06/05/23) Longstanding persistent atrial fibrillation (06/05/23) Pulmonary fibrosis, unspecified (06/05/23) Pleural effusion, not elsewhere classified (06/05/23) Acute respiratory failure with hypoxia (06/05/23) Acute kidney failure, unspecified (06/05/23) Abnormal coagulation profile (06/05/23) Other nonspecific abnormal finding of lung field (06/05/23) Presence of aortocoronary bypass graft (06/05/23) Past Medical History (Last Reviewed 06/05/23 @ 04:45 by Timothy Juan DO) Actinic keratoses Ankle pain (2016) Atrial fibrillation Cardiac arrhythmia (~2014) Cardiac tumor (~2001) Cervical somatic dysfunction Chicken pox (1975) Chronic neck pain Chronic pain of both shoulders Colon polyps Coronary artery disease (1998) Cranial somatic dysfunction Excessive cerumen in both ear canals Foot pain Hearing loss Hyperlipidemia Hypertension Insomnia secondary to chronic pain Kidney stones Measles Mumps Neck stiffness Normocytic anemia Pacemaker (1998) Positive FIT (fecal immunochemical test) Right medial knee pain Shoulder pain Sleep apnea (~1999) Surgical History (Last Reviewed 06/17/22 @ 20:19 by David Lang DO) AICD (automatic cardioverter/defibrillator) present (12/29/15) Anesthesia History of colonoscopy with polypectomy (05/24/09) History of colonoscopy with polypectomy (07/08/14) History of right-sided carotid endarterectomy (~09/2010) S/P CABG (coronary artery bypass graft) (1998) Status post cardiac surgery (~2001) Status post carotid surgery (1998) Status post placement of cardiac pacemaker (~2001) Occupational Therapy Inpatient Evaluation/Re-Eval M1 PT/OT-IP Prior Functional Status Start: 06/09/23 11:24 Freq: NEEDED Status: Active Protocol: Document 06/10/23 13:53 [facility] (Rec: 06/10/23 14:36 MB [id number]) Medical Review Prior Functional Status Medical History Reviewed Yes Communication WNLs Mobility and Gait I, furniture cruising but states he cannot walk far d/t ROSSI Activities of Daily Living and IADL's Pt reports I but trouble with all tasks including managing his dog and shopping Social History Household Members none Living Arrangements House Number of Floors (Floors) One Floor Number of Stairs To Enter/Railing? 2-3 steps with two wide rails Home Environment Standard Height Toilet,Tub/ Shower Home Equipment Straight Cane Employment Status Retired M1 PT/OT-IP Prior Functional Status Start: 06/10/23 14:29 Freq: NEEDED Status: Active Protocol: Document 06/10/23 13:53 [facility] (Rec: 06/10/23 15:13 [facility] [id number]) Medical Review Prior Functional Status Medical History Reviewed Yes Communication WNLs Mobility and Gait I, furniture cruising but states he cannot walk far d/t ROSSI Activities of Daily Living and IADL's Pt reports I but trouble with all tasks including managing his dog and shopping Social History Household Members none Living Arrangements House Number of Floors (Floors) One Floor Number of Stairs To Enter/Railing? 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 M2 OT-IP Current Condition Start: 06/10/23 14:29 Freq: Status: Active Protocol: Document 06/10/23 13:53 [facility] (Rec: 06/10/23 15:13 [facility] [id number]) Occupational Therapy Current Condition Current Condition Evaluation Date 06/10/23 Treatment Diagnosis Recurrent L PE, Lung mass Diagnosis Onset Date 06/05/23 M3 OT- IP Subjective and Pain Start: 06/10/23 14:29 Freq: Status: Active Protocol: Document 06/10/23 13:53 [facility] (Rec: 06/10/23 15:13 [facility] [id number]) OT- Subjective Occupational Therapy Visit Type Type Initial Evaluation Visit Start Time 13:53 Visit Stop Time 14:17 Total Visit Minutes 24 Occupational Therapy Visit Comments Patient Comments Pt agreed to get up. Pt on 3. 5L of O2. Patient/Caregiver Goals Pt unsure of his goals due to questionable prognosis. M4 OT- IP ADL's Start: 06/10/23 14:29 Freq: Status: Active Protocol: Document 06/10/23 13:53 [facility] (Rec: 06/10/23 15:13 [facility] [id number]) OT [id number] Comments OT Self-Feeding Comments Not at meal time. OT ADL-Grooming Comments OT Grooming Comments Pt states did prior. OT ADL-Oral Care Comments Oral Care Comments Pt states did prior. OT ADL-Dressing Comments OT Dressing Comments NOt performed. OT ADL-Toileting Comments OT Toileting Comments Not performed. OT ADL-Bathing Comments OT Bathing Comments Sponge bath more appropriate at this time due to decreased activity tolerance. M5 OT- IP IADL's Start: 06/10/23 14:29 Freq: Status: Active Protocol: Document 06/10/23 13:53 [facility] (Rec: 06/10/23 15:13 [facility] [id number]) OT-Instrumental Activities of Daily Living Deficits IADL Deficits Identified Deficits Home Safety Awareness Awareness of Need for Assistance at Home Good Awareness Ability to Problem Solve Emergency Able to Problem Solve Situations Home Safety Comments Pt states prior having difficulties to care for his dog and himself due to decreased activity tolerance and realizes that he will not be able to care for himself anymore and will need assist. Medication Management Medication Management Comments Prior pt was doing on his own. Money Management Money Management Comments Prior pt was doing it on his own. Meal Preparation Meal Preparation Comments Pt will need assist. Stuffer Stuffer Comments Pt will need assist. Driving Driving Comments Pt has not drive in the past month due to being in the hospital and not having enough activity tolerance to do. M6 OT- IP Functional Cognition Start: 06/10/23 14:29 Freq: Status: Active Protocol: Document 06/10/23 13:53 [facility] (Rec: 06/10/23 15:13 [facility] [id number]) Cognitive Factors Limiting Selfcare Function Cognitive Ability Level of Alertness Alert Patient Orientation Name,Age,Birthday,Month,Date, Year,Day of Week,Place, Situation Ability to Follow Commands Able to Follow One Step Commands Memory Description No Deficits Noted Safety Awareness Underestimates Need for Assistance Cognitive Comments Cognitive Assessment Comments Pt appears intact and realistic of his needs. Pt however needing education to use the FWW for now for safety . OT- Vision and Hearing OT- Hearing Assessment OT- Hearing Assessment WFL OT- Vision Assessment Visual Acuity Glasses All The Time,Glasses For Reading M7 OT- IP Mobility and Balance Start: 06/10/23 14:29 Freq: Status: Active Protocol: Document 06/10/23 13:53 [facility] (Rec: 06/10/23 15:13 [facility] [id number]) OT- Bed Mobility Assessment Supine to Sit Supine to Sit Assist Contact Guard Assistance Sit to Supine Sit to Supine Assist Maximum Assistance Scooting Scooting to Edge of Bed Contact Guard Assistance OT-Transfer Assessment Sit to and From Stand Sit to and from Stand Contact Guard Assistance Transfers Transfer Ability Contact Guard Assistance Technique Transfer Destination Bed,Chair Transfer Technique Stand Step Pivot Devices Transfer Assistive Devices Gait Belt,Front Wheeled Walker Comments Mobility Comments CGA to get to the edge of the bed. MAX A to assist to get his legs pack into the bed. CGA to stand and transfer with fww. Another person to assist with all his tubing needs. Pt on 3.5L of O2 and dropped to 88% briefly while transferring and come back to 92-95%. OT- Balance Assessment Sitting Balance and Reactions Static Sitting Balance Ability Good Dynamic Sitting Balance Ability Good Standing Balance and Reactions Static Standing Balance Ability Fair Dynamic Standing Balance Ability Fair M8 OT- IP Objective Assessments Start: 06/10/23 14:29 Freq: Status: Active Protocol: Document 06/10/23 13:53 [facility] (Rec: 06/10/23 15:13 [facility] [id number]) OT Gross Range of Motion Upper Extremity Range of Motion Assessment Within Functional Limits OT Strength Upper Extremity Strength Assessment Within Functional Limits Hand Geriatric Physician Strength Hand Dominance Left Comments Strength Comments BUE 4/5 to 4+/5 from proximal to distal. OT- Coordination Assessment Upper Extremity Finger to Nose Test Within Functional Limits OT-Muscle Tone Assessment Muscle Tone WNL Yes M9 OT- IP Assessment and Plan Start: 06/10/23 14:29 Freq: Status: Active Protocol: Document 06/10/23 13:53 [facility] (Rec: 06/10/23 15:13 [facility] [id number]) OT Summary Assessment and Plan Potential Rehabilitation Potential Fair Analytic Complexity at Evaluation High Summary OT Impairments Strength,Balance,Functional Mobility,Dressing,Toileting, Bathing,Toilet Transfers, Shower Transfers,Activity Tolerance Progress Towards Goals Slow Progress due to Medical Issues,Slow Progress due to Activity Tolerance Assessment Summary Pt high complexity due to multiple medical needs and guarded prognosis. Pending on medical management and needs pt to either go home with 24/7 assist home health, possible hospice, versus skilled rehab. Pt admits he feels that he not able to take care of himself anymore . Pt to talk further with pulmonology and the hospitalist for his course of action. Goals Self-Feeding Goal Independent Grooming Goal Independent Dressing Goal Standby Assistance Toileting Goal Standby Assistance Bathing Goal Standby Assistance Toilet Transfer Goal Independent Shower Transfer Goal Contact Guard Assistance Days to Meet Goals 20 Frequency of Treatment Frequency Of Treatment Once a Day Treatment Plan OT Treatment Plan ADL Training,Functional Mobility,Patient/Family Education,Discharge Planning Other Treatment Recommendations and Next Grooming while standing at Treatment Focus the sink with FWW. Discharge Recommendations OT Discharge Recommendations Home vs SNF Other Discharge Recommendations Home with 24/7 assist home health, skilled rehab, hospice pending prognosis Transportation Needs at Discharge Private Vehicle,Wheelchair/ Cabulance
--- NOTE | 2023-06-10 14:36 | PT.IIE ---
Current Diagnoses Essential (primary) hypertension (06/05/23) Longstanding persistent atrial fibrillation (06/05/23) Pulmonary fibrosis, unspecified (06/05/23) Pleural effusion, not elsewhere classified (06/05/23) Acute respiratory failure with hypoxia (06/05/23) Acute kidney failure, unspecified (06/05/23) Abnormal coagulation profile (06/05/23) Other nonspecific abnormal finding of lung field (06/05/23) Presence of aortocoronary bypass graft (06/05/23) Surgical History (Last Reviewed 06/17/22 @ 20:19 by David Lang DO) AICD (automatic cardioverter/defibrillator) present (12/29/15) Anesthesia History of colonoscopy with polypectomy (05/24/09) History of colonoscopy with polypectomy (07/08/14) History of right-sided carotid endarterectomy (~09/2010) S/P CABG (coronary artery bypass graft) (1998) Status post cardiac surgery (~2001) Status post carotid surgery (1998) Status post placement of cardiac pacemaker (~2001) Medical History (Last Reviewed 06/05/23 @ 04:45 by Timothy Juan DO) Actinic keratoses Ankle pain (2016) Atrial fibrillation Cardiac arrhythmia (~2014) Cardiac tumor (~2001) Cervical somatic dysfunction Chicken pox (1975) Chronic neck pain Chronic pain of both shoulders Colon polyps Coronary artery disease (1998) Cranial somatic dysfunction Excessive cerumen in both ear canals Foot pain Hearing loss Hyperlipidemia Hypertension Insomnia secondary to chronic pain Kidney stones Measles Mumps Neck stiffness Normocytic anemia Pacemaker (1998) Positive FIT (fecal immunochemical test) Right medial knee pain Shoulder pain Sleep apnea (~1999) Physical Therapy Inpatient Evaluation/Re-Eval M1 PT/OT-IP Prior Functional Status Start: 06/09/23 11:24 Freq: NEEDED Status: Active Protocol: Document 06/10/23 13:53 MB (Rec: 06/10/23 14:36 MB [id number]) Medical Review Prior Functional Status Medical History Reviewed Yes Communication WNLs Mobility and Gait I, furniture cruising but states he cannot walk far d/t ROSSI Activities of Daily Living and IADL's Pt reports I but trouble with all tasks including managing his dog and shopping Social History Household Members none Living Arrangements House Number of Floors (Floors) One Floor Number of Stairs To Enter/Railing? 2-3 steps with two wide rails Home Environment Standard Height Toilet,Tub/ Shower Home Equipment Straight Cane Employment Status Retired M2 PT-IP Current Condition Start: 06/09/23 11:24 Freq: NEEDED Status: Active Protocol: Document 06/10/23 13:53 MB (Rec: 06/10/23 14:36 MB [id number]) Physical Therapy Current Condition Current Condition Evaluation Date 06/10/23 Treatment Diagnosis Recurrent PE, lung mass and CT M3 PT-IP Subjective Start: 06/09/23 11:24 Freq: NEEDED Status: Active Protocol: Document 06/10/23 13:53 MB (Rec: 06/10/23 14:36 MB [id number]) Subjective Physical Therapy Visit Type Type Initial Evaluation Visit Start Time 13:53 Visit Stop Time 14:18 Total Visit Minutes 25 Number of VERIFICATION MANAGER Visits 0 Physical Therapy Visit Comments Patient Comments I don't know what I'm going to do. I can't take care of myself at home. M4 PT-IP Mobility and Gait Start: 06/09/23 11:24 Freq: NEEDED Status: Active Protocol: Document 06/10/23 13:53 MB (Rec: 06/10/23 14:36 MB [id number]) PT-Bed Mobility Assessment Supine to Sit Supine to Sit Contact Guard Assistance,1 Person Assistance,Head of Bed Elevated,Bedrails Sit to Supine Sit to Supine Maximum Assistance,1 Person Assistance,Bedrails Scooting Scooting Up and Down in Bed Contact Guard Assistance PT-Transfer Assessment Sit to and From Stand Sit to and from Stand Contact Guard Assistance,1 Person Assistance,Use of Upper Extremities Equipment Transfer Assistive Device Gait Belt,Front Wheeled Walker Transfers Transfer Destination Chair Transfer Technique Stepping with RW Transfer Ability Level of Assist Contact Guard Assistance,1 Person Assistance,Use of Upper Extremities Comments Mobility Comments Pt pleasant, conversant and talking through his concerns and situation. Pt states he has felt like he's drowning at home with ROSSI and that he cannot manage himself or his dog. He does not have local family and he does have kids that are in state. Gait Assessment Gait Gait Assistance Required: Contact Guard Assist,1 Person Assist Distance (Feet) 3 Able to Maintain Weight Bearing Status Yes During Gait Assistive Devices Assistive Device Gait Belt,Front Wheeled Walker Gait Deviations General Gait Pattern Decreased Stride Length,Flexed Trunk Factors Limiting Gait Function Factors Limiting Gait Function Decreased Activity Tolerance, Poor Balance,Poor Safety Awareness Comments Gait Comments Pt is somewhat impulsive and does not follow commands well for safe hand placement. He requires constant cueing for safety and PT manages CT and O2 line and O2 sats on 3.5L remain in the low 90s except for one drop into the upper 80s. PT-Balance Assessment Sitting Balance and Reactions Static Sitting Balance Ability Good Dynamic Sitting Balance Ability Good Standing Balance and Reactions Static Standing Balance Ability Fair Dynamic Standing Balance Ability Fair Device Used RW M5 PT-IP Objective Assessments Start: 06/09/23 11:24 Freq: NEEDED Status: Active Protocol: Document 06/10/23 13:53 MB (Rec: 06/10/23 14:36 MB [id number]) Orientation Orientation/Cognition Level of Alertness Alert Orientation Name,Age,Birthday,Month,Date, Year,Day of Week,Place, Situation Language Function Ability No Deficits Noted Safety Awareness Decreased Safety Awareness Memory Description No Deficits Noted Gross Range of Motion Upper Extremity ROM Impairments Defer to OT Lower Extremity ROM Assessment Within Functional Limits Strength Lower Extremity Strength Assessment Within Functional Limits M7 PT-IP Assessment and Plan Start: 06/09/23 11:24 Freq: NEEDED Status: Active Protocol: Document 06/10/23 13:53 MB (Rec: 06/10/23 14:36 MB [id number]) PT Summary Assessment and Plan Potential Rehabilitation Potential Fair Status of Condition at Evaluation Evolving Summary Impairments Bed Mobility,Transfers,Gait, Activity Tolerance Progress Towards Goals Slow Progress due to Medical Issues,Slow Progress due to Activity Tolerance Assessment Summary Pt is a pleasant 78 y/o who participates well with PT assessment but who appears overwhelmed with his current medical presentation. He is using 3.5L O2 on eval and has CT on the left. He had a lung bx today and is awaiting results. It is currently unclear pt's medical prognosis /trajectory and so PT recommends ongoing acute PT and then either 24 hour assistance or SNF at d/c. Goals Bed Mobility Goal Independent Transfer Goal Independent,Front Wheeled Walker Gait Goal Independent,Front Wheel Walker Gait Distance 75 Other Goals Pt will ascend and descend 3 steps with rail and no more than superv assistance to allow safe home entrance if that is disposition location. Days to Meet Goals 5 Frequency of Treatment Frequency Of Treatment Once a Day Treatment Plan Physical Therapy Treatment Plan Bed Mobility Training,Transfer Training,Gait Training, Therapeutic Exercise,Balance Retraining,Discharge Planning Weight Bearing Status Weight Bearing Status Weight Bear as Tolerated Recommendations To Nursing Amount of Assist Needed 1 Person Assist Discharge Recommendations Other Discharge Recommendations Home with 13/01 assistance vs SNF pending medical prognosis Transportation Needs at Discharge Wheelchair/Cabulance
--- NOTE | 2023-06-10 18:30 | CM.DPNOTE ---
DCP note KIDS ACTIVITIES COACH reviewed EMR. KIDS ACTIVITIES COACH unable to meet with pt today due to triaging needs. Per provider, pt on 2ltrs of O2 at baseline but suspects his new baseline may be closer to 3-4ltrs. Waiting on pulmonary to consult with provider tomorrow. Per provider, patient may need plurex cath(?) Pt may need to transfer to place with more appropriate pulmonary specialists. Per provider, chest tube continues to drain a lot. Per Janna at , continue to follow, no formal acceptance yet. Pending PT/OT input. Janna reports they can take 5ltrs max O2, but believes cannot take plurex cath. Per PT/OT, pt reports not really being interested in SNF. Patient may be more appropriate for hospice services. Per PT/OT, pt has supportive adult children? DCP continues to unfold. SNF versus Hospice versus transfer versus LTAC. CM team will continue to follow closely. ALEENA Daniels
[2023-06-10] MEDS: WARFARIN 1 MG TABLET 2 MG PO (21:54)
[2023-06-10] MEDS: HEPARIN 5,000 UNIT/ML VIAL 5000 UNIT SUBCUT (21:54)
[2023-06-11] VITALS (9 sets, daily range): BP systolic 81–113; BP diastolic 48–74; PULSE 30–80; RESP 15–30; TEMP 35.7–36.7; O2SAT 92–94
[2023-06-11 05:05] LABS: INR 1.3 (0.9-1.3); Prothrombin Time 15.4 SECONDS (9.4-12.5)
[2023-06-11 05:12] LABS: BUN Creatinine Ratio 37.8 (6-22); Blood Urea Nitrogen 37 mg/dL (9-20); Carbon Dioxide 28 mmol/L (22-32); Chloride 99 mmol/L (98-107); Estimated Glomerular Filt Rate > 60 mL/min (>60); Glucose 93 mg/dL (80-110); HEMOLYSIS < 15 (0-50); Magnesium 1.9 mg/dL (1.6-2.3); Potassium 4.4 mmol/L (3.4-5.1); Sodium 132 mmol/L (137-145)
[2023-06-11 05:20] LABS: Add Manual Diff / Slide Review NO; Basophils Absolute Auto 0 /uL (0-100); Basophils Percent Auto 0.3 % (0-2); Eosinophils Absolute Auto 0 /uL (0-450); Eosinophils Percent Auto 0.2 % (2-4); Hematocrit 41.2 % (41-53); Hemoglobin 13.9 g/dL (13.5-17.5); Lymphocytes Absolute Auto 1300 /uL (1100-4500); Lymphocytes Percent Auto 9.3 % (25-40); Mean Corpuscular HGB Conc 33.7 % (30-36); Mean Corpuscular Hemoglobin 30.4 PG (26-34); Mean Corpuscular Volume 90.3 fL (80-100); Monocytes Absolute Auto 1200 /uL (0-900); Monocytes Percent Auto 8.5 % (3-14); Neutrophils Absolute Auto 11500 /uL (1500-7000); Neutrophils Percent Auto 81.7 % (50-75); Platelet Count 210 X10^3/uL (150-400); Red Blood Cell Count 4.56 X10^6/uL (4.5-5.9); Red Cell Distribution Width 13.6 % (11.6-14.8); White Blood Cell Count 14.1 X10^3/uL (4.5-11.0)
[2023-06-11] MEDS: PANTOPRAZOLE DR 20 MG TABLET PO (06:02)
[2023-06-11] MEDS: ISOSORBIDE MONONITRATE ER 30 MG TABLET PO (06:02)
[2023-06-11] MEDS: BUDESONIDE 0.5 MG/2 ML NEB INH ×2 (07:30→20:10)
[2023-06-11] MEDS: ALBUTEROL 2.5 MG/3 ML NEB (ADULT) INH (07:30)
[2023-06-11] MEDS: ATORVASTATIN 20 MG TABLET 40 MG PO (10:00)
[2023-06-11] MEDS: HEPARIN 5,000 UNIT/ML VIAL 5000 UNIT SUBCUT ×2 (10:00→21:44)
[2023-06-11] MEDS: SOTALOL 80 MG TABLET PO ×2 (10:00→21:43)
[2023-06-11] MEDS: METOPROLOL ER 50 MG TABLET PO (10:00)
[2023-06-11] MEDS: predniSONE 20 MG TABLET 40 MG PO (10:00)
[2023-06-11] MEDS: HYDROCODONE/ACET 5/325 TABLET 1 TAB PO ×4 (10:27→22:01)
--- NOTE | 2023-06-11 11:10 | PM.PN.1 ---
Subjective Subjective Date Patient Seen: 06/11/23 Time Patient Seen: 08:00 Interval history: He feels his shortness of breath has periods of feeling poorly, but he feels slightly improved right at this moment. His chest tube is not draining significantly at the moment. He remains on 4L of oxygen. Exam Vital Signs (past 8 hours): - 06/11/23 03:40 06/11/23 07:00 Temperature 97.4 F L Pulse Rate 30 L 67 Respiratory Rate 15 24 Blood Pressure 100/68 107/63 Pulse Oximetry 93 93 Oxygen Flow Rate 4 4 Fraction of Inspired Oxygen 34 SaO2/FiO2 Ratio 282 Oxygen Delivery Method Nasal Cannula Oxygen Flow Rate 4 Narrative Exam Narrative: Gen: alert, oriented Lungs: diminished on left CV: RRR no m/r/g. Ext: no edema Objective Labs 06/11/23 04:51 06/11/23 04:51 Labs: Laboratory Results - last 24 hr 06/11/23 04:51 WBC 14.1 H RBC 4.56 Hgb 13.9 Hct 41.2 MCV 90.3 MCH 30.4 MCHC 33.7 RDW 13.6 Plt Count 210 Neut % (Auto) 81.7 H Lymph % (Auto) 9.3 L [place] % (Auto) 8.5 Eos % (Auto) 0.2 L Baso % (Auto) 0.3 Neut # (Auto) 93244 H Lymph # (Auto) 1300 [place] # (Auto) 1200 H Eos # (Auto) 0 Baso # (Auto) 0 PT 15.4 H INR 1.3 Sodium 132 L Potassium 4.4 Chloride 99 Carbon Dioxide 28 BUN 37 H Creatinine 0.98 Estimated GFR > 60 BUN/Creatinine Ratio 37.8 H Glucose 93 Calcium 9.0 Magnesium 1.9 PFSH Medical History Positive FIT (fecal immunochemical test) Normocytic anemia Chronic pain of both shoulders Cranial somatic dysfunction Cervical somatic dysfunction Neck stiffness Actinic keratoses Excessive cerumen in both ear canals Right medial knee pain Insomnia secondary to chronic pain Chronic neck pain Chicken pox (1975) Measles Mumps Ankle pain (2016) Foot pain Shoulder pain Sleep apnea (~1999) Colon polyps Kidney stones Hearing loss Cardiac arrhythmia (~2014) Cardiac tumor (~2001) Pacemaker (1998) Atrial fibrillation Coronary artery disease (1998) Hypertension Hyperlipidemia Surgical History History of right-sided carotid endarterectomy (~09/2010) AICD (automatic cardioverter/defibrillator) present (12/29/15) History of colonoscopy with polypectomy (07/08/14) History of colonoscopy with polypectomy (05/24/09) Status post carotid surgery (1998) Anesthesia Status post cardiac surgery (~2001) S/P CABG (coronary artery bypass graft) (1998) Status post placement of cardiac pacemaker (~2001) Family History Brother Age: 79 Heart disease Child Liver failure Father Heart disease Grandfather Heart disease Mother MS (multiple sclerosis) Grandmother No problems noted. Sister Stomach cancer Sister Heart disease Social History household members: none Smoking Status: Former smoker alcohol intake: never Assessment & Plan Assessment & Plan narrative: # Recurrent L pleural effusion secondary to lung cancer -CT chest with multiple air bronchograms, honeycombing, fibrotic changes and masslike density of PRICE last admission. Adenopathy on CT and mass concerning for lung cancer -please see separate consultation from inker and opaquer Dr. Rangel, coordinated plan of care with him. Now s/p pigtail catheter placement on 06/05. Was on water seal on 06/06 and placed to suction on 06/07 due to worsening respiratory symptoms -continue to hold coumadin, recommended for IR guided biopsy of lung mass when INR normal. INR is 1.[address] guided biopsy performed. Can resume INR per pharmacy. -no concern for infection at this time after cultures negative. -may need increased home O2 on discharge, though not entirely clear. -started on steroids for possible pulmonary fibrosis flare at 60 mg daily. Decreased to 40 today as does not appear to be helping. Continue on taper with 40 mg daily then taper further in a few days. -continue furosemide 40 mg IV daily. -fluid is exudative. Only result is total protein from the fluid which was 4.1. 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 Showed reduced EF as noted below #KALE, improved - suspect due to overdiuresis / hypovolemia initially - given 500 mL fluid bolus initially - on 06/07 restarted diuresis, no significant change in Cr since. 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 -holding losartan due to soft BP -Echo with slight decrease in EF to approx 25% -restarted lasix 40 mg IV daily on 06/07, will continue today. Consider change to oral soon. # paroxysmal A-fib with supratherapeutic INR -continue sotalol and metoprolol per home routine -held warfarin for CT guided lung biopsy. Can resume now per pharmacy protocol. # CAD s/p CABG x4 -continue aspirin # HTN -holding losartan with recent KALE and mild hypotension # HLD -continue lipitor Quality VTE Deep Vein Thrombosis/Pulmonary Embolism Present on Admission: No
--- NOTE | 2023-06-11 12:27 | OT.IPNOTE ---
Spoke to pt and his family regarding OT needs. Based on his medical needs and guarded prognosis, OT services not indicated as at this time. Pt agreed to be discharged from OT services. Case management agreed as well.
--- NOTE | 2023-06-11 15:36 | PT-IP ANOTE ---
EMR reviewed and pt possibly going on hospice care. Talked with embedded case manager and stated that we are waiting for flocculator operator's dx at this time. medicine and health service manager stated that at this point, d/c planning [place], no PT needs. informed embedded case manager that PT will ask pt what he wants to do regarding continuation of PT especially that pt's prior level of mobility was modified independent but currently requiring CGA and unable to tolerate much activity. medicine and health service manager supervision stated to d/c pt and will re-order PT when needed or obtained flocculator operator's dx. PT opted to hold for today. embedded case manager stated that we might get flocculator operator's dx today. checked pt and pt agreed to hold PT today and stated that he has pain today anyways and will not be able to move. agreed for PT to check back to tomorrow pending dx. will continue to f/u.
--- NOTE | 2023-06-11 16:27 | CM.DPNOTE ---
DCP Note ORE CHARGER reviewed EMR. Per provider in rounds, medical plan of care pending pulminologist input. Pulminologist input will narrow/help determine discharge planning needs. ORE CHARGER unable to meet with pt due to triaging needs. Per chart review/previous CM notes, pt lives alone but has adult children in [facility]. PT/OT evals rec home with 24/7 assistance vs SNF vs hospice pending medical prognosis. PT held services for the day, OT discharged. ORE CHARGER spoke with Janna at . Janna agreed to hold onto referral, no official acceptance yet. No hospice referral made at this time. If hospice, CM team would need pt's preference on local hospice versus with adult children in [facility]? As of 1629, no pulmonolgy note available in chart. Plan: pending medical POC and pulmonology input. SNF versus Hospice versus LTAC versus transfer to higher level of care? Follow closely ALEENA Daniels
--- NOTE | 2023-06-11 16:59 | P.CONS_ITS ---
History of Present Illness Consult details Chief complaint: SOB Narrative: Dr. Surya Zarate, I had the pleasure of seeing your patient Madison Murillo who is a pleasant 78-year-old male with a coronary artery disease status post bypass grafting, atrial fibrillation on anticoagulation status post pacemaker, ischemic cardiomyopathy with EF of 30 35% status post AICD, family history of pulmonary fibrosis, distant smoking history of 25 pack years quit in 1998 who presents today for worsening acute hypoxemic respiratory failure after recent hospitalization 05/20 with evidence of pulmonary fibrosis, left upper lobe mass, and left pleural effusion status post 1.1 L thoracentesis discharged on supplemental oxygen whom I saw in consultation 06/04 for recurrent left pleural effusion c/b worsening hypoxemic respiratory failure whom pulmonary is continuing to follow. He actually had progressive worsening dyspnea over the last year. Chest x-ray of the end of 2021 showed no specific pathology and he would no imaging or anything until April hospitalization. He would 20 lb unintentional weight loss. In April he would a new left pleural effusion, left upper lobe masslike consolidation, evidence of ILD. He was needing 3 L oxygen on presentation and had a 1.1 L thoracentesis with improvement but unfortunately no fluid analysis was sent. He appeared clinically euvolemic can in fact presented with a new prerenal KALE on 06/04. Chest x-ray showed recurrence of the left pleural effusion. He was up to 4 L nasal cannula. He was supratherapeutic INR up to 10 given vitamin K. I gave him IV fluids and then placed a left pigtail chest tube in sent for fluid analysis. Protein was high but LDH and glucose were pending. Cell count showed bloody effusion with neutrophilic predominance. Cytology was pending. I recommended fluids for prerenal KALE, continuing chest tube to suction, and CT-guided biopsy of the left upper lobe lung mass. In the interim he had some occlusion of his tube requiring flushing eventually draining now over 3-4 L of pleural fluid. He drained 600 mL in the last day. He is on 3 L nasal cannula. He feels quite dyspneic walking to the chair. He does not feel overall better although better from the worst point. In the interim apparently his cytology came back positive for small-cell lung cancer. Meds Home Medications and Allergies Home Medications Medication Instructions Recorded Confirmed Type isosorbide dinitrate 30 mg tablet 30 mg PO DAILY ##0 09/15/11 06/05/23 History spironolactone 25 mg tablet 25 mg PO QDAY ##0 09/15/11 06/05/23 History losartan 25 mg tablet 25 mg PO QDAY ##0 06/02/12 06/05/23 History metoprolol succinate 50 mg 50 mg PO DAILY 09/23/18 06/05/23 History tablet,extended release 24 hr sotalol 80 mg tablet 80 mg PO BID 09/23/18 06/05/23 History aspirin 81 mg tablet,delayed 81 mg PO DAILY 10/06/18 06/05/23 History release (Adult Aspirin Regimen) atorvastatin 40 mg tablet 40 mg PO DAILY #90 tabs 03/21/23 06/05/23 Rx Asmanex HFA 200 mcg/actuation 1 puff inhalation BID #13 grams 05/08/23 06/05/23 Rx aerosol inhaler (mometasone) inhalational spacing device #1 ea 05/08/23 06/05/23 Rx (BreatheRite MDI Spacer) albuterol sulfate 90 mcg/actuation 2 puff inhalation Q6H PRN 05/19/23 06/05/23 Rx aerosol inhaler shortness of breath or wheezing #8.5 grams warfarin 2.5 mg tablet 2.5 mg PO .COMPLEX #100 tabs 05/20/23 06/05/23 Rx Adult Oxygen mask #1 ea 06/04/23 06/05/23 Rx Allergies Allergy/AdvReac Type Severity Reaction Status Date / Time adhesive Allergy Mild BLISTERS Verified 05/19/23 08:44 AND RASH lisinopril AdvReac Mild COUGH Verified 05/19/23 08:44 Exam Vital Signs (past 8 hours): - 06/11/23 11:00 06/11/23 11:00 06/11/23 15:00 Temperature 98.0 F 97.5 F L Pulse Rate 79 65 Respiratory Rate 30 H 24 Blood Pressure 104/74 107/60 Pulse Oximetry 93 93 92 Oxygen Delivery Method Nasal Cannula Oxygen Flow Rate 3 3 3 Fraction of Inspired Oxygen 34 SaO2/FiO2 Ratio 282 Oxygen Delivery Method Nasal Cannula Oxygen Flow Rate 3 Narrative Exam Narrative: Elderly male, obese, with mild tachypnea sitting up in hospital bed in no distress Const General: cooperative and comfortable HENIL Head: normal to inspection Other: Wearing nasal cannula Resp Other: Diminished breath sounds throughout the left lung field. Right lung clear. Normal work of breathing Skin General: no rashes or lesions noted Neuro General: patient alert, patient awake and patient oriented x3 Extrem Other: No pitting edema Psych Appearance: grossly normal Objective Imaging CT scan - chest: My impression: I reviewed chest x-ray from 06/17/2022 showing some interstitial changes, hypoventilatory changes, sternotomy, pacemaker wires I reviewed chest x-ray from 05/08/2023 showing some increased interstitial markings, pulmonary vascular congestion I reviewed chest x-ray from 05/20/2023 showing a new left pleural effusion I reviewed chest CT from 05/12/2023 showing a left upper lobe apical anterior mass, new left pleural effusion, some cardiophrenic enlarged lymph nodes and evidence of peripheral honeycombing I reviewed chest CT from 06/09/2023 showing residual left pleural effusion with good placement of the left pigtail chest tube and persistent left upper lobe mass I reviewed lung biopsy CT from 06/10/2023 showing needle in the left upper lobe mass Echo: My impression: I reviewed echo showing EF of 30-35% slowly declining over the years Labs 06/11/23 04:51 06/11/23 04:51 Labs: Laboratory Results - last 24 hr 06/11/23 04:51 WBC 14.1 H RBC 4.56 Hgb 13.9 Hct 41.2 MCV 90.3 MCH 30.4 MCHC 33.7 RDW 13.6 Plt Count 210 Neut % (Auto) 81.7 H Lymph % (Auto) 9.3 L [place] % (Auto) 8.5 Eos % (Auto) 0.2 L Baso % (Auto) 0.3 Neut # (Auto) 67854 H Lymph # (Auto) 1300 [place] # (Auto) 1200 H Eos # (Auto) 0 Baso # (Auto) 0 PT 15.4 H INR 1.3 Sodium 132 L Potassium 4.4 Chloride 99 Carbon Dioxide 28 BUN 37 H Creatinine 0.98 Estimated GFR > 60 BUN/Creatinine Ratio 37.8 H Glucose 93 Calcium 9.0 Magnesium 1.9 I reviewed initial NT proBNP 1400 decreased from 1700 I reviewed left pleural fluid analysis from 06/04/2023 showing 116,000 red blood cells, 10/10/1992 white blood cells, 65% PMNs and protein 4.1 but pending LDH and glucose I reviewed pleural fluid cytology from 06/05/2023 showing small-cell lung cancer [facility] Medical History Positive FIT (fecal immunochemical test) Normocytic anemia Chronic pain of both shoulders Cranial somatic dysfunction Cervical somatic dysfunction Neck stiffness Actinic keratoses Excessive cerumen in both ear canals Right medial knee pain Insomnia secondary to chronic pain Chronic neck pain Chicken pox (1975) Measles Mumps Ankle pain (2016) Foot pain Shoulder pain Sleep apnea (~1999) Colon polyps Kidney stones Hearing loss Cardiac arrhythmia (~2014) Cardiac tumor (~2001) Pacemaker (1998) Atrial fibrillation Coronary artery disease (1998) Hypertension Hyperlipidemia Surgical History History of right-sided carotid endarterectomy (~09/2010) AICD (automatic cardioverter/defibrillator) present (12/29/15) History of colonoscopy with polypectomy (07/08/14) History of colonoscopy with polypectomy (05/24/09) Status post carotid surgery (1998) Anesthesia Status post cardiac surgery (~2001) S/P CABG (coronary artery bypass graft) (1998) Status post placement of cardiac pacemaker (~2001) Family History Brother Age: 79 Heart disease Child Liver failure Father Heart disease Grandfather Heart disease Mother MS (multiple sclerosis) Grandmother No problems noted. Sister Stomach cancer Sister Heart disease Social History household members: none Tobacco & Substance Use Smoking Status: Former smoker alcohol intake: never Assessment & Plan Assessment and plan (1) Lung mass: Status: Acute Plan: Patient has a new left upper lobe mass now status post CT-guided biopsy yesterday. We will follow up the cytology results but anticipate seeing small- cell lung cancer given the left pleural fluid cytology positive for small-cell lung cancer. This is considered extensive stage since it does not fit with the radiation field even those limited to his chest. I related diagnosis to the son who makes mention of patient's poor health and in the setting of likely incurable lung cancer worries about the effects of systemic cytotoxic chemotherapy which is reasonable. Hospitalist to continue ongoing goals of care discussion and related diagnosis the patient. Pulmonology available by phone to discuss further if needed.. (2) Pulmonary fibrosis: Problem details: Chronic and interestingly maybe familial. Overall territory is mild-moderate any certainly does not have severe progressive fibrotic lung disease. Recommendation: -follow-up in pulmonary clinic to include PFT Status: Acute Plan: Patient has subacute worsening of shortness of breath over the last year likely related to interstitial lung disease in the setting of a brother with pulmonary fibrosis which maybe familial. Corticosteroids are not indicated and he is no evidence of an exacerbation. Recommend discontinuing prednisone. At this point in time no specific treatment and antifibrotic would not be indicated given his extensive stage small-cell lung cancer likely life-limiting more so than his interstitial lung disease. (3) Pleural effusion: Status: Acute Plan: Patient has a recurrent left pleural effusion in the setting of a left upper lobe mass, idiopathic pulmonary fibrosis, and worsening hypoxemic respiratory failure. He would a thoracentesis in April unfortunately fluid studies were lost. I repeated this 06/04/2023 and this showed an exudate that was bloody with neutrophil predominance an incomplete pleural fluid studies awaiting LDH but protein elevated and finally a cytology resulted positive for small-cell lung cancer. At this time we will defer any future intervention for the left pleural effusion which his pigtail chest tube is draining 600 mL per day and he is getting some symptomatic relief. If he transitioned to hospice, treatment for air hunger can include oxygen, opioids and it can be offered tunneled pleural catheter which logistically maybe difficult to arrange. (4) Acute hypoxemic respiratory failure: Status: Acute Plan: Patient has new acute hypoxemic respiratory failure in the setting of development of a left pleural effusion and background of interstitial lung disease with a family history. Certainly his progressive shortness of breath without evidence of large left pleural effusion on 05/08/2023 is supportive of progressive IPF corroborated by his chest CT findings and family history. However his rapidly worsening shortness of breath in the last month with 20 lb weight loss is more concerning for an insidious etiology in the setting of a left upper lobe mass, left pleural effusion. He is now on 3 L nasal cannula. He would some symptomatic improvement with pleural fluid drainage. We have determined that the effusion is malignant. I recommend continuing supplemental oxygen to maintain saturations greater 90%. If it transition of the hospice oxygen can be used for air hunger. (5) KALE (acute kidney injury): Status: Acute Plan: Patient has a prerenal KALE in the setting of 20 lb weight loss, no pitting edema. This is resolved with IV fluids it was a gold standard diagnosis of prerenal KALE Time Spent With Patient Time with patient: 30 to 49 minutes with 50% spent counseling/coordinating care
--- NOTE | 2023-06-11 17:03 | DI.RAD.S_ITS ---
PROCEDURE: XR CHEST 1V INDICATIONS: re-evaluate left pleural effusion and left pigtail TECHNIQUE: One view of the chest was acquired. COMPARISON: [facility], CR, XR CHEST 1V, 06/07/2023, 7:58. [facility], CR, XR CHEST 1V, 06/05/2023, 12:50. FINDINGS: Surgical changes and devices: Left chest wall pacemaker. Median sternotomy wires. Surgical clips projecting over the mediastinum. Lungs and pleura: Low lung volumes. Bilateral hazy opacities, left greater than right appearing mildly increased compared to prior, may be secondary to low lung volumes. Redemonstration of left-sided pleural effusion. Mediastinum: Mediastinal contours appear normal. Heart size is normal. Bones and chest wall: No suspicious bony lesions. Overlying soft tissues appear unremarkable. IMPRESSION: Stable moderate left-sided pleural effusion. Bilateral hazy opacities, left greater than right appear mildly increased compared to prior, may be secondary to low lung volumes. Dictated by: Brian Diane M.D. on 06/11/2023 at 17:56 Approved by: Brian Diane M.D. on 06/11/2023 at 17:57
[2023-06-11] MEDS: WARFARIN 2.5 MG TABLET PO (17:54)
[2023-06-11] MEDS: SENNOSIDES 8.6 MG TABLET 17.2 MG PO (22:06)
[2023-06-12] VITALS (12 sets, daily range): BP systolic 90–108; BP diastolic 53–70; PULSE 79–92; RESP 19–26; TEMP 35.9–36.6; O2SAT 92–95
[2023-06-12] MEDS: ALBUTEROL 2.5 MG/3 ML NEB (ADULT) INH ×2 (05:55→08:29)
[2023-06-12] MEDS: ISOSORBIDE MONONITRATE ER 30 MG TABLET PO (06:51)
[2023-06-12] MEDS: PANTOPRAZOLE DR 20 MG TABLET PO (06:51)
[2023-06-12] MEDS: BUDESONIDE 0.5 MG/2 ML NEB INH (08:29)
[2023-06-12 09:28] LABS: Hematocrit 46.7 % (41-53); Hemoglobin 15.9 g/dL (13.5-17.5); Mean Corpuscular Hemoglobin 30.7 PG (26-34); Mean Corpuscular Volume 90.3 fL (80-100); Platelet Count 244 X10^3/uL (150-400); Red Blood Cell Count 5.17 X10^6/uL (4.5-5.9); Red Cell Distribution Width 13.9 % (11.6-14.8); White Blood Cell Count 20.3 X10^3/uL (4.5-11.0)
--- NOTE | 2023-06-12 09:32 | P.PN_ITS ---
Subjective Subjective Interval history: A 35min conversation was had with patient and family about GOC. They agreed that comfort care was the best option. Patient prefers DNR. Comfort orders placed. Exam Vital Signs (past 8 hours): - 06/12/23 03:00 06/12/23 04:00 06/12/23 06:55 Temperature 96.7 F L Pulse Rate 80 Respiratory Rate 21 Blood Pressure 95/55 L 103/60 Pulse Oximetry 94 92 Oxygen Delivery Method Nasal Cannula Oxygen Flow Rate 3 4 06/12/23 08:00 06/12/23 08:29 Temperature 97.8 F Pulse Rate 91 H 92 H Respiratory Rate 22 26 H Blood Pressure 108/70 Pulse Oximetry 93 93 Oxygen Delivery Method Oximask Oxygen Flow Rate 4 4 Fraction of Inspired Oxygen 34 SaO2/FiO2 Ratio 282 Oxygen Delivery Method Oximask Oxygen Flow Rate 4 Narrative Exam Narrative: Gen: alert, oriented, fatigued Lungs: diminished on left, chest tube in place CV: RRR no m/r/g. Ext: no edema Objective Labs 06/12/23 09:02 06/12/23 09:02 Labs: Laboratory Results - last 24 hr 06/12/23 09:02 WBC 20.3 H RBC 5.17 Hgb 15.9 Hct 46.7 MCV 90.3 MCH 30.7 MCHC 34.0 RDW 13.9 Plt Count 244 PFSH Medical History Positive FIT (fecal immunochemical test) Normocytic anemia Chronic pain of both shoulders Cranial somatic dysfunction Cervical somatic dysfunction Neck stiffness Actinic keratoses Excessive cerumen in both ear canals Right medial knee pain Insomnia secondary to chronic pain Chronic neck pain Chicken pox (1975) Measles Mumps Ankle pain (2016) Foot pain Shoulder pain Sleep apnea (~1999) Colon polyps Kidney stones Hearing loss Cardiac arrhythmia (~2014) Cardiac tumor (~2001) Pacemaker (1998) Atrial fibrillation Coronary artery disease (1998) Hypertension Hyperlipidemia Surgical History History of right-sided carotid endarterectomy (~09/2010) AICD (automatic cardioverter/defibrillator) present (12/29/15) History of colonoscopy with polypectomy (07/08/14) History of colonoscopy with polypectomy (05/24/09) Status post carotid surgery (1998) Anesthesia Status post cardiac surgery (~2001) S/P CABG (coronary artery bypass graft) (1998) Status post placement of cardiac pacemaker (~2001) Family History Brother Age: 79 Heart disease Child Liver failure Father Heart disease Grandfather Heart disease Mother MS (multiple sclerosis) Grandmother No problems noted. Sister Stomach cancer Sister Heart disease Social History household members: none Smoking Status: Former smoker alcohol intake: never Assessment & Plan Assessment & Plan narrative: Comfort care as of 06/12. # recurrent L pleural effusion secondary to lung cancer -CT chest with multiple air bronchograms, honeycombing, fibrotic changes and masslike density of PRICE last admission. Adenopathy on CT and mass concerning for lung cancer -please see separate consultation from financial data analyst Dr. Rangel, coordinated plan of care with him. Now s/p pigtail catheter placement on 06/05. Was on water seal on 06/06 and placed to suction on 06/07 due to worsening respiratory symptoms -continue to hold coumadin, recommended for IR guided biopsy of lung mass when INR normal. INR is 1.[address] guided biopsy performed. Can resume INR per pharmacy. -no concern for infection at this time after cultures negative. -may need increased home O2 on discharge, though not entirely clear. -started on steroids for possible pulmonary fibrosis flare at 60 mg daily. Decreased to 40 today as does not appear to be helping. Continue on taper with 40 mg daily then taper further in a few days. -continue furosemide 40 mg IV daily. -fluid is exudative. Only result is total protein from the fluid which was 4.1. Cytology confirms malignancy with report of neuroendocrine tumor consistent with small cell lung cancer -pulmonology thinks prognosis is very poor, given patient is too weak to do chemo treatment and is rapidly declining -[facility] convo with family on 06/12 was held and patient is now full comfort care # acute on chronic hypoxic resp failure -likely due to malignancy and fluid reaccumulation -Echo ordered to further assess cardiac status as last echo was >1 year ago. Showed reduced EF as noted below -EF now 25-30% #KALE, resolved - suspect due to overdiuresis / hypovolemia initially - given 500 mL fluid bolus initially - on 06/07 restarted diuresis, no significant change in Cr since. 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 -holding losartan due to soft BP -Echo with slight decrease in EF to approx 25% # paroxysmal A-fib with supratherapeutic INR -continue sotalol and metoprolol per home routine -held warfarin # CAD s/p CABG x4 -holding aspirin # HTN -holding losartan with recent KALE and mild hypotension # HLD -stopped due to comfort care Dispo: Patient now DNR and comfort care. Likely imminent in next several days. Time Spent With Patient Time with patient: 30 to 49 minutes with 50% spent counseling/coordinating care Quality VTE Deep Vein Thrombosis/Pulmonary Embolism Present on Admission: No
[2023-06-12 09:54] LABS: BUN Creatinine Ratio 32.3 (6-22); Blood Urea Nitrogen 40 mg/dL (9-20); Calcium 9.5 mg/dL (8.4-10.2); Carbon Dioxide 24 mmol/L (22-32); Chloride 98 mmol/L (98-107); Estimated Glomerular Filt Rate 59 mL/min (>60); Glucose 113 mg/dL (80-110); HEMOLYSIS < 15 (0-50); Magnesium 1.8 mg/dL (1.6-2.3); Potassium 5.1 mmol/L (3.4-5.1); Sodium 130 mmol/L (137-145)
[2023-06-12] MEDS: ATORVASTATIN 20 MG TABLET 40 MG PO (09:59)
[2023-06-12] MEDS: METOPROLOL ER 50 MG TABLET PO (10:00)
[2023-06-12] MEDS: HEPARIN 5,000 UNIT/ML VIAL 5000 UNIT SUBCUT (10:00)
[2023-06-12] MEDS: SOTALOL 80 MG TABLET PO ×2 (10:00→23:08)
--- NOTE | 2023-06-12 10:16 | PT-IP ANOTE ---
Pt is likely to go onto hospice per hospitalist we will d/c from PT services.
[2023-06-12 10:28] LABS: Procalcitonin 0.18 ng/mL (<0.5)
[2023-06-12 11:28] LABS: INR 2.5 (0.9-1.3); Prothrombin Time 28.9 SECONDS (9.4-12.5)
[2023-06-12] MEDS: MORPHINE 2 MG/ML INJ IV ×3 (12:05→17:26)
--- NOTE | 2023-06-12 12:11 | PC.NURSE ---
Patient is A&Ox4, VSS, afebrile on 3 L oxymask. He is SOB with any exertion but is able to sit on the BSC after bed cid was uncomfortable for him to use. He has a very small BM, but refuses suppository. He is assisted back to bed. He declines wanting prn hydrocodone this a.m. But appears to have severe pain with movement to left region of his chest. Daughter Judy at bedside supportive and tearful as MD as discussion with her about care options and prognosis. He is transferred to room 229 for management of air hunger. Plan is CT will be evaluated by surgery today. Scant output of serosanguineous fluid. CT to suction at 20mmhg.
[2023-06-12] MEDS: ONDANSETRON 4 MG/2 ML INJ IV ×2 (12:12→17:33)
--- NOTE | 2023-06-12 14:40 | CM.DPNOTE ---
DCP Cont According to Dr Middleton, patient requests DNR and hospice, family still being updated. Patient will be transitioned to full comfort measures once son received complete update and agreeable to plan moving forward. There is a chance patient may not survive this hospitalization if transitioned to full comfort care. Patient lives alone. Dionne at [facility] aware of situation and may be able to accept under comfort measures although patient has Mendez. So, likely it will be Mendez denial first then private payment at SNF if patient/family are able to accommodate. CM team following closely. JW
--- NOTE | 2023-06-12 18:34 | PC.NURSE ---
Shift note Pt. transferred to room 229 approx. noon for management of air hunger. Given Morphine 2 mg IVP with resulting nausea, gave Zofran 4 mg and nausea subsided. Pt. able to sleep, awoke reporting some confusion but easily reoriented. CT clamped approx. 1820 per provider order, pt. asked to alert nursing for increased shortness of breath and/or sudden changes in breathing.
[2023-06-13] MEDS: MORPHINE 2 MG/ML INJ IV ×4 (06:24→22:56)
[2023-06-13 08:13] VITALS: BP 98/56; PULSE 87; RESP 19; TEMP 36.6; O2SAT 93
[2023-06-13 08:30] VITALS: BP 98/56; PULSE 87; RESP 19; TEMP 36.6; O2SAT 93
[2023-06-13] MEDS: ONDANSETRON 4 MG/2 ML INJ IV (10:21)
--- NOTE | 2023-06-13 11:44 | PM.PN.1 ---
Subjective Subjective Interval history: Patient more awake and alert today. Morphine IV helping air hunger and patient says he is in no pain. On 6L NC. Family all at bedside. Exam Vital Signs (past 8 hours): - 06/13/23 07:00 06/13/23 08:13 Temperature 97.8 F Pulse Rate 87 Respiratory Rate 19 Blood Pressure 98/56 L Pulse Oximetry 93 Oxygen Delivery Method Oximask Oxygen Flow Rate 6 Fraction of Inspired Oxygen 34 SaO2/FiO2 Ratio 282 Oxygen Delivery Method Oximask Oxygen Flow Rate 6 Narrative Exam Narrative: Gen: alert, oriented, fatigued, ill-appearing Lungs: diminished on left, chest tube in place CV: RRR no m/r/g. Ext: no edema Objective Labs 06/12/23 09:02 06/12/23 09:02 [facility] Medical History Positive FIT (fecal immunochemical test) Normocytic anemia Chronic pain of both shoulders Cranial somatic dysfunction Cervical somatic dysfunction Neck stiffness Actinic keratoses Excessive cerumen in both ear canals Right medial knee pain Insomnia secondary to chronic pain Chronic neck pain Chicken pox (1975) Measles Mumps Ankle pain (2016) Foot pain Shoulder pain Sleep apnea (~1999) Colon polyps Kidney stones Hearing loss Cardiac arrhythmia (~2014) Cardiac tumor (~2001) Pacemaker (1998) Atrial fibrillation Coronary artery disease (1998) Hypertension Hyperlipidemia Surgical History History of right-sided carotid endarterectomy (~09/2010) AICD (automatic cardioverter/defibrillator) present (12/29/15) History of colonoscopy with polypectomy (07/08/14) History of colonoscopy with polypectomy (05/24/09) Status post carotid surgery (1998) Anesthesia Status post cardiac surgery (~2001) S/P CABG (coronary artery bypass graft) (1998) Status post placement of cardiac pacemaker (~2001) Family History Brother Age: 79 Heart disease Child Liver failure Father Heart disease Grandfather Heart disease Mother MS (multiple sclerosis) Grandmother No problems noted. Sister Stomach cancer Sister Heart disease Social History household members: none Smoking Status: Former smoker alcohol intake: never Assessment & Plan Assessment & Plan narrative: Comfort care as of 06/12. # recurrent L pleural effusion secondary to lung cancer -CT chest with multiple air bronchograms, honeycombing, fibrotic changes and masslike density of PRICE last admission. Adenopathy on CT and mass concerning for lung cancer -please see separate consultation from piano machine operator Dr. Rangel, coordinated plan of care with him. Now s/p pigtail catheter placement on 06/05. Was on water seal on 06/06 and placed to suction on 06/07 due to worsening respiratory symptoms -continue to hold coumadin, recommended for IR guided biopsy of lung mass when INR normal. INR is 1.[address] guided biopsy performed. Can resume INR per pharmacy. -no concern for infection at this time after cultures negative. -may need increased home O2 on discharge, though not entirely clear. -started on steroids for possible pulmonary fibrosis flare at 60 mg daily. Decreased to 40 today as does not appear to be helping. Continue on taper with 40 mg daily then taper further in a few days. -continue furosemide 40 mg IV daily. -fluid is exudative. Only result is total protein from the fluid which was 4.1. Cytology confirms malignancy with report of neuroendocrine tumor consistent with small cell lung cancer -pulmonology thinks prognosis is very poor, given patient is too weak to do chemo treatment and is rapidly declining -[facility] convo with family on 06/12 was held and patient is now full comfort care -chest tube clamped # acute on chronic hypoxic resp failure -likely due to malignancy and fluid reaccumulation -Echo ordered to further assess cardiac status as last echo was >1 year ago. Showed reduced EF as noted below -EF now 25-30% #KALE, resolved - suspect due to overdiuresis / hypovolemia initially - given 500 mL fluid bolus initially - on 06/07 restarted diuresis, no significant change in Cr since. 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 -holding losartan due to soft BP -Echo with slight decrease in EF to approx 25% # paroxysmal A-fib with supratherapeutic INR -continue sotalol and metoprolol per home routine -held warfarin # CAD s/p CABG x4 -holding aspirin # HTN -holding losartan with recent KALE and mild hypotension # HLD -stopped due to comfort care Dispo: Patient now DNR and comfort care. Possibly imminent in next several days. If not may need to go to SNF with chest tube clamped on hospice. Time Spent With Patient Time with patient: 30 to 49 minutes with 50% spent counseling/coordinating care Quality VTE Deep Vein Thrombosis/Pulmonary Embolism Present on Admission: No
[2023-06-13] MEDS: SCOPOLAMINE 1 PATCH TOP (15:02)
[2023-06-14] MEDS: MORPHINE 2 MG/ML INJ IV (04:20)
[2023-06-14] MEDS: LORazepam 2 MG/ML ORAL SOL 1 MG SL (05:59)
--- NOTE | 2023-06-14 07:59 | PM.PN.1 ---
Subjective Subjective Interval history: Patient having pain with chest tube today, so I had nurses removed it at bedside. Patient now more comfortable. Family at bedside. No other changes made. Patient looking more imminent today. Exam Vital Signs (past 8 hours): Fraction of Inspired Oxygen 34 SaO2/FiO2 Ratio 282 Oxygen Delivery Method Oximask Oxygen Flow Rate 6 Narrative Exam Narrative: Gen: sleeping, ill-appearing Lungs: diminished on left, chest tube dressing on left CV: RRR no m/r/g. Ext: no edema Objective Labs 06/12/23 09:02 06/12/23 09:02 [facility] Medical History Positive FIT (fecal immunochemical test) Normocytic anemia Chronic pain of both shoulders Cranial somatic dysfunction Cervical somatic dysfunction Neck stiffness Actinic keratoses Excessive cerumen in both ear canals Right medial knee pain Insomnia secondary to chronic pain Chronic neck pain Chicken pox (1975) Measles Mumps Ankle pain (2016) Foot pain Shoulder pain Sleep apnea (~1999) Colon polyps Kidney stones Hearing loss Cardiac arrhythmia (~2014) Cardiac tumor (~2001) Pacemaker (1998) Atrial fibrillation Coronary artery disease (1998) Hypertension Hyperlipidemia Surgical History History of right-sided carotid endarterectomy (~09/2010) AICD (automatic cardioverter/defibrillator) present (12/29/15) History of colonoscopy with polypectomy (07/08/14) History of colonoscopy with polypectomy (05/24/09) Status post carotid surgery (1998) Anesthesia Status post cardiac surgery (~2001) S/P CABG (coronary artery bypass graft) (1998) Status post placement of cardiac pacemaker (~2001) Family History Brother Age: 79 Heart disease Child Liver failure Father Heart disease Grandfather Heart disease Mother MS (multiple sclerosis) Grandmother No problems noted. Sister Stomach cancer Sister Heart disease Social History household members: none Smoking Status: Former smoker alcohol intake: never Assessment & Plan Assessment & Plan narrative: Comfort care as of 06/12. # recurrent L pleural effusion secondary to lung cancer -CT chest with multiple air bronchograms, honeycombing, fibrotic changes and masslike density of PRICE last admission. Adenopathy on CT and mass concerning for lung cancer -please see separate consultation from pick up driver Dr. Rangel, coordinated plan of care with him. Now s/p pigtail catheter placement on 06/05. Was on water seal on 06/06 and placed to suction on 06/07 due to worsening respiratory symptoms -continue to hold coumadin, recommended for IR guided biopsy of lung mass when INR normal. INR is 1.[address] guided biopsy performed. Can resume INR per pharmacy. -no concern for infection at this time after cultures negative. -may need increased home O2 on discharge, though not entirely clear. -started on steroids for possible pulmonary fibrosis flare at 60 mg daily. Decreased to 40 today as does not appear to be helping. Continue on taper with 40 mg daily then taper further in a few days. -received furosemide 40 mg IV daily. -fluid is exudative. Only result is total protein from the fluid which was 4.1. Cytology confirms malignancy with report of neuroendocrine tumor consistent with small cell lung cancer -pulmonology thinks prognosis is very poor, given patient is too weak to do chemo treatment and is rapidly declining -[facility] convo with family on 06/12 was held and patient is now full comfort care -chest tube removed on 06/14 # acute on chronic hypoxic resp failure -likely due to malignancy and fluid reaccumulation -Echo ordered to further assess cardiac status as last echo was >1 year ago. Showed reduced EF as noted below -EF now 25-30% #KALE, resolved - suspect due to overdiuresis / hypovolemia initially - given 500 mL fluid bolus initially - on 06/07 restarted diuresis, no significant change in Cr since. 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 -holding losartan due to soft BP -Echo with slight decrease in EF to approx 25% # paroxysmal A-fib with supratherapeutic INR -continue sotalol and metoprolol per home routine -held warfarin # CAD s/p CABG x4 -holding aspirin # HTN -holding losartan with recent KALE and mild hypotension # HLD -stopped due to comfort care Dispo: Patient now DNR and comfort care. Possibly imminent in next few days. Time Spent With Patient Time with patient: 30 to 49 minutes with 50% spent counseling/coordinating care Quality VTE Deep Vein Thrombosis/Pulmonary Embolism Present on Admission: No
[2023-06-14] MEDS: MORPHINE 10 MG/0.5 ML ORAL SYRINGE PO ×11 (09:35→23:57)
[2023-06-14] MEDS: LORazepam 2 MG/ML ORAL SOL SL ×2 (10:52→17:02)
--- NOTE | 2023-06-14 15:19 | CM.DPNOTE ---
DCP note GRIEVANCE COORDINATOR reviewed EMR. Per provider, pt has oscillated between stabilizing and declining, with pt's most current state being unstable for transport. Provider reports pt will likely pass here. GRIEVANCE COORDINATOR entered room and introduced self and role to family at bedside. GRIEVANCE COORDINATOR primarily spoke with son/POA [place], Judy, and other adult son (maybe Sidney?). GRIEVANCE COORDINATOR updated family on potential cost of SNF for comfort care. Family reports they would rather take him home with hospice support. Family reports that someone, mostly adult dtr(?) could be with him 13/01. Judy (dtr) claims she was a former [employer] and feels comfortable caring for his needs. GRIEVANCE COORDINATOR spoke with Alanis at [facility]. Willing to review. CM team faxed H&P, PN, labs, meds, facesheet. Confirms availability of starting care is not until next week but willing to review. Plan: CM team will continue to follow closely. Pt either will pass here or transition to home with [facility] with family support. ALEENA Daniels
--- NOTE | 2023-06-14 15:41 | CM.DPNOTE ---
DCP Cont: [facility]ed [facility] , for ALEENA Shine, new referral. Included face sheet, latest progress notes, H&P, labs, med sheets, and latest nurses note. P: DC planners working on home plan with [facility] , have faxed over the referral. Tiffanie Jones RN/Chairman
[2023-06-14 17:00] VITALS: BP 88/45; PULSE 65; RESP 26; TEMP 36.6
[2023-06-15] MEDS: MORPHINE 10 MG/0.5 ML ORAL SYRINGE PO ×3 (01:06→03:17)
--- NOTE | 2023-06-15 04:26 | PC.NURSE ---
Addendum entered by Adriana Oliveira R.N. 06/15/23 09:35: 0750 [facility] picked up Pt, family took all of pt belongings including necklace from around pt neck. No further pt contact, RIP Original Note: Patient noted with no visible respiration, no blood pressure, no apical heartbeat, all confirmed with another RN on duty. Daughter at bedside and aware.
--- NOTE | 2023-06-15 11:19 | PM.DDS.1 ---
Discharge Summary History of Illness Narrative: I had the pleasure of seeing your patient Madison Murillo who is a pleasant 78-year-old male with a coronary artery disease status post bypass grafting, atrial fibrillation on anticoagulation status post pacemaker, ischemic cardiomyopathy with EF of 30 35% status post AICD, family history of pulmonary fibrosis, distant smoking history of 25 pack years quit in 1998 who presents today for worsening acute hypoxemic respiratory failure after recent hospitalization 05/20 with evidence of pulmonary fibrosis, left upper lobe mass, and left pleural effusion status post 1.1 L thoracentesis discharged on supplemental oxygen who presents to the ED again for worsening weakness, shortness of breath and worsening hypoxemia despite home oxygen of 2 L. patient tells me that he is had worsening shortness of breath over the last 1 year. He would a chest x-ray at the end of 2021 showing no specific pathology. He is had progressive exertional dyspnea in interestingly his evaluation with chest x-ray was in April of his hospitalization. There was a new left pleural effusion, interstitial prominence. A CT chest showed a left upper lobe masslike consolidation, left pleural effusion, evidence of interstitial lung disease. He was needing 3 L of oxygen on it presentation last hospitalization. He underwent thoracentesis of 1.1 L with improvement unfortunately no fluid analysis was sent. It was reportedly lost. He does not think he is had any weight loss however there is a documented 20 lb weight loss since last month. He is had decreased appetite corroborated by his son. He is not had any other respiratory symptoms such as hemoptysis though had cough, weakness. He is not had any leg edema and last evaluation in March noted to be euvolemic with no evidence of decompensated heart failure and no interest in pursuing other GDM T including Entresto or Jardiance. His NT proBNP last hospitalization was 1700 out 1400. He presented with an KALE which is new compared to last month's hospitalization 2 weeks ago. Chest x-ray showed recurrent left pleural effusion. Though he was on home 2 L he required escalation to 4 L nasal cannula. The ED gave diuretics. He states that his brother had pulmonary fibrosis and was recently diagnosed with his last hospitalization. On arrival his INR was elevated and so he was given vitamin K. Hospital Course Date of Admission: 06/05/23 02:29 Primary care provider: Jason Cruz DO Consults: 06/09/23 10:21 Consult to Occupational Therapy Evaluate & Treat Comment: Physician Instructions: Evaluate and treat Consult to Physical Therapy Evaluate & Treat Comment: Physician Instructions: Evaluate and Treat Discharge provider: Unruly Ibanez MD Discharge Diagnosis: 1. Small cell lung cancer 2. Recurrent exudative left pleural effusion secondary to #1 3. Acute on chronic hypoxic respiratory failure, final cause of 4. Chronic HFeEF 5. Acute kidney injury secondary to diuresis in hospital, resolved 6. Paroxysmal atrial fibrillation 7. CAD, hx CABG x 4 vessel Hospital Course: Pt was transitioned to comfort care on Jun 12 after consultation with pulmonary and discussion with patient and family. See below for details of hospital care. # recurrent L pleural effusion secondary to lung cancer -CT chest with multiple air bronchograms, honeycombing, fibrotic changes and masslike density of PRICE last admission. Adenopathy on CT and mass concerning for lung cancer -please see separate consultation from physiologist Dr. Rangel, coordinated plan of care with him. Now s/p pigtail catheter placement on 06/05. Was on water seal on 06/06 and placed to suction on 06/07 due to worsening respiratory symptoms -continue to hold coumadin, recommended for IR guided biopsy of lung mass when INR normal. INR is 1.[address] guided biopsy performed. Can resume INR per pharmacy. -no concern for infection at this time after cultures negative. -may need increased home O2 on discharge, though not entirely clear. -started on steroids for possible pulmonary fibrosis flare at 60 mg daily. Decreased to 40 today as does not appear to be helping. Continue on taper with 40 mg daily then taper further in a few days. -received furosemide 40 mg IV daily. -fluid is exudative. Only result is total protein from the fluid which was 4.1. 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 Showed reduced EF as noted below -EF now 25-30% #KALE, resolved - suspect due to overdiuresis / hypovolemia initially - given 500 mL fluid bolus initially - on 06/07 restarted diuresis, no significant change in Cr since. 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 -holding losartan due to soft BP -Echo with slight decrease in EF to approx 25% # paroxysmal A-fib with supratherapeutic INR -continue sotalol and metoprolol per home routine -held warfarin # CAD s/p CABG x4 -holding aspirin Objective Labs 06/12/23 09:02 06/12/23 09:02
[2023-06-17 14:10] LABS: Miscellaneous to LabCorp 485
[2023-06-17 14:18] LABS: Miscellaneous to LabCorp 77
== END 2023-06-15 07:50 | disposition expired | DRG 180 ==
LOC: ED 06-05 02:29 → AC 06-05 02:30 → ICU 06-05 12:03 → AC 06-08 18:11 → ICU 06-12 11:39
PROVIDERS: Internal Medicine; Student in an Organized Health Care Education/Training Program; Admitting Provider Internal Medicine; Emergency Provider Internal Medicine; PCP Family Medicine; Referring Provider Emergency Medicine; Visit Provider Internal Medicine
DX: C34.12 Malignant neoplasm of upper lobe, left bronchus or lung (principal); J96.21 Acute and chronic respiratory failure with hypoxia; N17.9 Acute kidney failure, unspecified; I50.22 Chronic systolic (congestive) heart failure; J91.0 Malignant pleural effusion; R79.1 Abnormal coagulation profile; E78.5 Hyperlipidemia, unspecified; I11.0 Hypertensive heart disease with heart failure; T50.2X5A Adverse effect of carbonic-anhydrase inhibitors, benzothiadiazides and other diuretics, initial encounter; I48.0 Paroxysmal atrial fibrillation; Z99.81 Dependence on supplemental oxygen; Z79.01 Long term (current) use of anticoagulants; Z95.1 Presence of aortocoronary bypass graft; Z87.891 Personal history of nicotine dependence; Z66 Do not resuscitate; Z95.0 Presence of cardiac pacemaker; Z51.5 Encounter for palliative care
CPT/HCPCS: 32408; 36415; 36600; 71045; 71250; 71260; 80048; 80053; 82550; 82805; 83605; 83690; 83735; 83880; 84145; 84484; 85025; 85027; 85610; 85730; 87070; 87075; 87205; 89051; 93005; 93010; 93306; 94640; 94762; 96365; 97161; 97167; 99285; J1644; J1940; J2270; J2405; J7613; Q9957; Q9967